=== PATIENT | male | born 1945 | race Caucasian/White ===

== ENCOUNTER 2017-05-04 10:21 | Day surgery (SDC) | payer MEDICARE ==
[~2017-05-04 10:21] MED LIST: LACTATED RINGERS 1,000 ML IV SCH; LIDOCAINE 1% 20 ML VIAL (10MG/ML) FOR IV START INTRADERMA PRN
[2017-05-04 11:14] VITALS: RESP 16; TEMP 98
[2017-05-04] MEDS ORDERED: LIDOCAINE 1% INJ 10MG/ML (20 ML MDV) ONE (11:51)
[2017-05-04] MEDS ORDERED: PROPOFOL 10 MG/ML 20 ML VIAL IV ONE (11:51)
[2017-05-04] MEDS ORDERED: MIDAZOLAM 2 MG/2 ML VIAL ONE (11:51)
--- NOTE | 2017-05-04 12:17 | P.PCN ---
Date of Procedure: 05/04/17 Procedure(s) Performed: BRIEF HISTORY: Patient is a 71-year-old pleasant white male scheduled for an elective colonoscopy as a part of screening for colorectal neoplasia. PROCEDURE PERFORMED: Colonoscopy with biopsy. PREOPERATIVE DIAGNOSIS: Screening for colon cancer IV sedation per Anesthesia. PROCEDURE: After informed consent was obtained, the patient, was brought into the endoscopy unit. IV sedation was administered by Anesthesia under continuous monitoring. Digital rectal examination was normal. Initially the Olympus CF- 160 flexible video colonoscope was then inserted in the rectum, gradually advanced into the cecum without any difficulty. Careful examination was performed as the scope was gradually being withdrawn. Ileocecal valve and the appendiceal orifice were visualized and appeared normal. Prep was excellent. Mucosa of the cecum, ascending colon, appeared normal. In the transverse colon there was a 5 mm polyp that was removed by biopsy. The rest of the transverse colon, descending colon, sigmoid colon, and rectum appeared normal. Moderate left sided diverticulosis seen. Retroflexion was performed in the rectum and grade 2 internal hemorrhoids were seen. The patient tolerated the procedure well. IMPRESSION: 5 mm transverse colon polyp status post removal by biopsy. Left sided diverticulosis Small internal hemorrhoids RECOMMENDATIONS: Findings of this examination were discussed with the patient as well as his family. He was advised to follow with the biopsy results. If the biopsy shows a tubular adenoma he can have a repeat colonoscopy in 5 years.
[2017-05-04 12:50] VITALS: BP 132/69
[2017-05-04 12:52] VITALS: PULSE 61
== END 2017-05-04 13:34 | disposition home or self-care (01) ==
LOC: ORWHC2ENDO 10:21
PROVIDERS: ATTEND Internal Medicine Gastroenterology
DX: D12.3 Benign neoplasm of transverse colon (principal); K57.30 Diverticulosis of large intestine without perforation or abscess without bleeding; K64.1 Second degree hemorrhoids; E78.5 Hyperlipidemia, unspecified; K21.9 Gastro-esophageal reflux disease without esophagitis; Z79.82 Long term (current) use of aspirin; Z79.899 Other long term (current) drug therapy; Z86.010 Personal history of colon polyps
CPT/HCPCS: 45380; 88305; J2250; J2001; J2704

== ENCOUNTER → 2019-02-05 | Outpatient (CLI) | payer MEDICARE ==
--- NOTE | 2019-02-05 16:34 | XR ---
Cervical spine HISTORY: Neck pain 5 views of the cervical spine Cervical vertebral bodies show decreased mineralization. There is a minimal retrolisthesis grade 1 C5 -6, C6-7. Suspect segmentation anomaly at C2-3. Spondylosis is present with loss of disc height at C5 -6 and C6-7, there is associated vacuum phenomenon at intervertebral levels with loss of disc height. Minimal anterolisthesis grade 1 C3-4, C7-T1. Facet arthropathy changes are present. Prevertebral sof t tissues are normal. Multilevel foraminal encroachment present C5-6 and C6-7 bilaterally, foramina n ot as well visualized on the left due to technique. 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 Cervical MRI may be of benefit. Foraminal encroachment.
== END | disposition home or self-care (01) ==
LOC: RADXRMAIN 12:26
PROVIDERS: ATTEND Family Medicine
DX: M50.30 Other cervical disc degeneration, unspecified cervical region (principal); M46.92 Unspecified inflammatory spondylopathy, cervical region; Q89.9 Congenital malformation, unspecified
CPT/HCPCS: 72050

== ENCOUNTER → 2019-11-25 | Outpatient (CLI) | payer MEDICARE ==
--- NOTE | 2019-11-25 14:50 | XR ---
EXAMINATION TYPE: XR chest 2V DATE OF EXAM: 11/25/2019 COMPARISON: NONE TECHNIQUE: PA and lateral views submitted. HISTORY: Cough FINDINGS: The lungs are clear and there is no pneumothorax, pleural effusion, or focal pneumonia. Heart size normal. No overt failure. Biapical pleural thickening. IMPRESSION: 1. No acute process.
== END | disposition home or self-care (01) ==
LOC: RADXRMAIN 14:34
PROVIDERS: ATTEND Family Medicine
DX: R05 Cough (principal)
CPT/HCPCS: 71046

== ENCOUNTER → 2020-03-15 | Outpatient (CLI) | payer MEDICARE ==
--- NOTE | 2020-03-16 09:52 | MR ---
EXAMINATION TYPE: MR Prostate wo/w con DATE OF EXAM: 03/15/2020 COMPARISON: None. IMAGE QUALITY: . INDICATION: PSA: 12.5 ng/ml on February 13, 2020 Recent Biopsy and Date: November 04, 2014. Pathology Report (If Applicable): All sites benign. TECHNIQUE: Examination was performed using a 3T MRI without an endorectal coil. Multiparametric imaging was perf ormed with T2 mutliplanar sequences, axial diffusion weighted imaging and dynamic contrast enhanced i maging, utilizing 10 mL intravenous Gadavist gadolinium contrast. FINDINGS: There is no clinically significant cancer identified. PROSTATE VOLUME: 5.6 cm SI x 4.5 cm AP x 5.1 cm LR Vol= 67.3 cc PSA DENSITY: 8.076 ng/ml/cc Prostate gland overall enlarged in size. Capsule is maintained. No adjacent adenopathy seen. Peripheral zone is thinned and unremarkable on the DWI/ADC imaging. Transitional zone shows heterogeneity and enlargement. There is circumscribed hypointense 1.6 x 0.9 c m nodule in the right mid zone with superior basilar extension. In the left base anteriorly there is heterogeneous low T2 signal with obscured margins that does not show restricted diffusion on diffusio n-weighted imaging. Finding best appreciated on coronal image 8. Seminal vesicles symmetric in size. Urinary bladder shows no suspicious wall thickening or trabeculation. Visualized osseous structures are intact. No concerning pelvic fluid collection. No suspicious bowel dilatation. IMPRESSION: Findings consistent with BPH. A focus of clinically significant cancer not identified. Highest Assessment Category: 3 MRI Stage: T0 N0 M0 based on review of pelvic images. False negative rates for MRI range from 5-20% depending on risk profile. Assessment Categories: 1 ? Very low (clinically significant cancer is highly unlikely to be present) 2 ? Low (clinically significant cancer is unlikely to be present) 3 ? Intermediate (the presence of clinically significant cancer is equivocal) 4 ? High (clinically significant cancer is likely to be present) 5 ? Very high (clinically significant cancer is highly likely to be present)
== END | disposition home or self-care (01) ==
LOC: RADMRIMAIN 18:33
PROVIDERS: ATTEND Urology
DX: R97.20 Elevated prostate specific antigen [PSA] (principal)
CPT/HCPCS: 72197; A9585

== ENCOUNTER → 2021-01-20 | Outpatient (CLI) | payer MEDICARE ==
--- NOTE | 2021-01-20 18:01 | ECHOF ---
Referral Reason: MEASUREMENTS -------- HEIGHT: 177.8 cm WEIGHT: 99.8 kg BP: IVSd: 1.3 cm (0.6 - 1.1) LVIDd: 4.1 cm (3.9 - 5.3) LVPWd: 1.4 cm (0.6 - 1.1) EDV(Teich): 73 ml IVSs: 1.7 cm LVIDs: 2.7 cm LVPWs: 1.5 cm %IVS Thck: 23 % ESV(Teich): 26 ml EF(Teich): 65 % %FS: 35 % SV(Teich): 47 ml RVIDd: 4.4 cm (< 3.3) LALs A4C: 5.3 cm LAAs A4C: 18.9 cm LAESV A-L A4C: 57 ml LAESV MOD A4C: 54 ml LALs A2C: 5.2 cm LAAs A2C: 17.5 cm LAESV A-L A2C: 50 ml LAESV MOD A2C: 48 ml LAESV(A-L): 54 ml LAESV Index (A-L): 24.76 ml/m Ao Diam: 3.6 cm (2.0 - 3.7) LA Diam: 3.8 cm (2.7 - 3.8) AV Cusp: 2.0 cm (1.5 - 2.6) EPSS: 0.3 cm MV E Richard: 0.59 m/s MV DecT: 275 ms MV Dec Grady: 2.1 m/s MV A Richard: 0.92 m/s MV E/A Ratio: 0.64 MV PHT: 80 ms LVOT Vmax: 1.15 m/s LVOT maxP.31 mmHg AV Vmax: 1.46 m/s AV maxP.53 mmHg TR Vmax: 2.92 m/s TR maxP.09 mmHg RAP: 5.00 mmHg RVSP: 39.09 mmHg MV EF SLOPE: 67.77 mm/s (70 - 150) MV EXCURSION: 20.76 mm (> 18.000) FINDINGS -------- Sinus rhythm. This was a technically adequate study. The left ventricular size is normal. There is mild concentric left ventricular hypertrophy. Overa ll left ventricular systolic function is normal with, an EF between 55 - 60 %. The diastolic fillin g pattern is normal for the age of the patient 11.05. The right ventricle is moderately enlarged. Normal LA size by volume 22+/-6 ml/m2. The right atrial size is normal. Interatrial and interventricular septum intact. There is no evidence of aortic regurgitation. There is no evidence of aortic stenosis. There is trace mitral regurgitation. Mild tricuspid regurgitation present. There is mild pulmonary hypertension. The right ventricular systolic pressure, as measured by Doppler, is 39.09mmHg. There is no pulmonic regurgitation present. The aortic root size is normal. Normal inferior vena cava with normal inspiratory collapse consistent with estimated right atrial pre ssure of 5 mmHg. There is no pericardial effusion. CONCLUSIONS -------- 1. The left ventricular size is normal. 2. There is mild concentric left ventricular hypertrophy. 3. Overall left ventricular systolic function is normal with, an EF between 55 - 60 %. 4. The diastolic filling pattern is normal for the age of the patient 11.05 5. The right ventricle is moderately enlarged. 6. There is trace mitral regurgitation. 7. Mild tricuspid regurgitation present. 8. There is mild pulmonary hypertension. 9. The right ventricular systolic pressure, as measured by Doppler, is 39.09mmHg. DONOR SERVICES SPECIALIST: Liz Holland RDCS
== END | disposition home or self-care (01) ==
LOC: RADECHMAIN 12:49
PROVIDERS: ATTEND Family Medicine
DX: I08.1 Rheumatic disorders of both mitral and tricuspid valves (principal); I27.20 Pulmonary hypertension, unspecified
CPT/HCPCS: 93306

== ENCOUNTER → 2021-01-21 | Outpatient (CLI) | payer MEDICARE ==
[2021-01-21 07:54] LABS: Basophils # (A) 0.1 k/uL (0-0.2); Basophils % (A) 1 %; Eosinophils # (A) 0.2 k/uL (0-0.7); Eosinophils % (A) 3 %; HCT 43.1 % (39.0-53.0); HGB 14.5 gm/dL (13.0-17.5); Lymphocytes # (A) 2.3 k/uL (1.0-4.8); Lymphocytes % (A) 34 %; MCH 30.9 pg (25.0-35.0); MCHC 33.6 g/dL (31.0-37.0); MCV 92.1 fL (80.0-100.0); Mean Platelet Volume 7.7; Monocytes # (A) 0.3 k/uL (0-1.0); Monocytes % (A) 5 %; Neutrophils # (A) 3.8 k/uL (1.3-7.7); Neutrophils % (A) 56 %; Platelet Count 210 k/uL (150-450); RBC 4.68 m/uL (4.30-5.90); RDW 13.5 % (11.5-15.5); WBC 6.8 k/uL (3.8-10.6)
[2021-01-21 08:23] LABS: Calcium 9.7 mg/dL (8.4-10.2)
== END | disposition home or self-care (01) ==
LOC: LABPAT 07:02
PROVIDERS: ATTEND Urology
DX: Z01.812 Encounter for preprocedural laboratory examination (principal); R97.20 Elevated prostate specific antigen [PSA]
CPT/HCPCS: 36415; 80048; 85025

== ENCOUNTER 2021-01-27 08:39 | Day surgery (SDC) | payer MEDICARE ==
[2021-01-20 09:55] VITALS: BMI 31.5
--- NOTE | 2021-01-25 21:51 | P.GSHP ---
History of Present Illness H&P Date: 01/25/21 Chief Complaint: Elevated PSA The patient is a 75-year-old white male with a persistently elevated PSA level. He underwent a prostate ultrasound with biopsies in 2012 in 2014, showing no evidence of malignancy. An MRI of the prostate showed the prostate volume be 67 mL, and no areas of suspicion were identified. However, the PSA level has risen to 13.60. SALMA reveals the prostate to be enlarged but smooth. - Constitutional Constitutional: Denies weight gain, Denies weight loss - Genitourinary (Male) Genitourinary: Reports nocturia, Reports urinary hesitancy, Denies dysuria, Denies hematuria Past Medical History Past Medical History: GERD/Reflux, Hyperlipidemia, Hypertension, Prostate Disorder Additional Past Medical History / Comment(s): PSA ELEVATED History of Any Multi-Drug Resistant Organisms: None Reported Past Surgical History: Tonsillectomy Additional Past Surgical History / Comment(s): ULNAR NERVE LEFT ARM. COLONOSCOPY Past Anesthesia/Blood Transfusion Reactions: No Reported Reaction Smoking Status: Former smoker - Past Family History Mother Family Medical History: No Reported History Daughter(s) Family Medical History: Cancer Additional Family Medical History / Comment(s): BREAST Medications and Allergies Home Medications Medication Instructions Recorded Confirmed Type Pravastatin Sodium [Pravachol] 40 mg PO HS 05/03/17 01/20/21 History amLODIPine [Norvasc] 5 mg PO HS 01/20/21 01/20/21 History Allergies Allergy/AdvReac Type Severity Reaction Status Date / Time No Known Allergies Allergy Verified 01/20/21 09:45 Surgical - Exam - General well developed, well nourished, no distress - Respiratory normal respiratory effort - Abdomen Abdomen: soft, non tender, no guarding, no rigid, no rebound - Genitourinary normal penis with no external lesions, testicles non-tender - Rectum Rectum: normal sphincter tone, no masses, other (Prostate enlarged and smooth) - Psychiatric oriented to time, oriented to person, oriented to place, speech is normal, memory intact Assessment and Plan (1) Elevated PSA Status: Acute Code(s): R97.20 - ELEVATED PROSTATE SPECIFIC ANTIGEN [PSA] SNOMED Code(s): 748448150 Plan: Prostate ultrasound with transperineal saturation biopsies. The rationale for the procedure has been reviewed in detail with the patient. He is aware of potential risks, which include anesthesia, bleeding, infection, and postoperative voiding difficulty.
[~2021-01-27 08:39] MED LIST changes: +DEXAMETHASONE SOD PHOSPHATE 4 MG/ML 1 ML VIAL IV ONE; +HYDROmorphone 0.5 MG/0.5 ML SYRINGE IVP PRN; -LACTATED RINGERS 1,000 ML IV SCH; -LIDOCAINE 1% 20 ML VIAL (10MG/ML) FOR IV START INTRADERMA PRN; +ONDANSETRON 4 MG/2 ML VIAL IVP ONE
[2021-01-27] MEDS ORDERED: LIDOCAINE 1% (10MG/ML) FOR IV START INTRADERMA ONE (09:16)
[2021-01-27] MEDS: LACTATED RINGERS 1,000 ML IV SCH ×2 (09:17→13:36)
[2021-01-27] MEDS ORDERED: PROPOFOL 10 MG/ML 20 ML VIAL IV ONE (10:53)
[2021-01-27] MEDS ORDERED: SUCCINYLCHOLINE CHLORIDE 100 MG/5 ML SYR IV ONE (10:53)
[2021-01-27] MEDS ORDERED: fentaNYL (PF) 50 MCG/ML 2 ML AMP ONE (10:53)
[2021-01-27] MEDS ORDERED: MIDAZOLAM 2 MG/2 ML VIAL ONE (10:53)
[2021-01-27] MEDS ORDERED: LIDOCAINE 1% INJ 10MG/ML (20 ML MDV) ONE (10:53)
--- NOTE | 2021-01-27 12:33 | P.OP ---
Date of Procedure: 01/27/21 Preoperative Diagnosis: Elevated PSA Postoperative Diagnosis: Same Procedure(s) Performed: Transrectal ultrasound of prostate with transperineal saturation prostate biopsies. Anesthesia: GETA Surgeon: Sascha Loving Estimated Blood Loss (ml): 30 IV fluids (ml): 350 Pathology: other (Prostate biopsies) Condition: stable Disposition: PACU Indications for Procedure: The patient is a 75-year-old white male with a persistently elevated PSA level. He underwent a prostate ultrasound with biopsies in 2012 in 2014, showing no evidence of malignancy. An MRI of the prostate showed the prostate volume be 67 mL, and no areas of suspicion were identified. However, the PSA level has risen to 13.60. SALMA reveals the prostate to be enlarged but smooth. Operative Findings: Enlarged prostate consistent with BPH. No suspicious hypoechoic lesions are seen. Description of Procedure: The patient was taken to the operating room and placed in the dorsolithotomy position, with his legs supported in Adriel stirrups. The external genitalia was prepped and draped sterilely. The B & K transrectal ultrasound probe was placed intrarectally, and the probe was then secured to the stabilizing brackets. The prostate was imaged on both the axial and sagittal planes. The prostate was noted to be enlarged. Transitional zone enlargement was consistent with BPH. No hypoechoic lesions were seen throughout the prostate. The Biopty gun was used to obtain multiple prostate biopsies, over 50 in total. Needle placement was imaged axially and sagittally. The specimens were divided and sent as follows : Right transitional zone, right peripheral zone base, right peripheral zone mid, right peripheral zone apex, left transitional zone, left peripheral zone base, left peripheral zone mid, left peripheral zone apex. Once this was completed, the prostate was imaged. There was no evidence of a hematoma surrounding the prostate. The ultrasound probe was removed. The patient tolerated the procedure well was taken to the recovery room in stable condition.
[2021-01-27 12:37] VITALS: TEMP 97.5
[2021-01-27 12:49] VITALS: RESP 16
[2021-01-27 14:08] VITALS: BP 140/79; PULSE 56
== END 2021-01-27 14:49 | disposition home or self-care (01) ==
LOC: OR 08:39
PROVIDERS: ATTEND Urology
DX: R97.20 Elevated prostate specific antigen [PSA] (principal); K21.9 Gastro-esophageal reflux disease without esophagitis; E78.5 Hyperlipidemia, unspecified; I10 Essential (primary) hypertension; Z87.891 Personal history of nicotine dependence; Z79.899 Other long term (current) drug therapy
CPT/HCPCS: 55700; J2250; J1100; J0690; J2405; J2001; J3010; J0330; J2704; J1170; 88305; 88344

== ENCOUNTER → 2021-06-21 | Outpatient (CLI) | payer MEDICARE | END | disposition home or self-care (01) | LOC: LABWHC1 07:13 | PROVIDERS: ATTEND Urology | DX: C61 Malignant neoplasm of prostate (principal) | CPT/HCPCS: 36415; 84153 ==

== ENCOUNTER → 2021-10-12 | Outpatient (CLI) | payer MEDICARE ==
[2021-10-12 18:33] LABS: Basophils # (A) 0.04 X 10*3/uL (0.00-0.10); Basophils % (A) 0.6 %; Eosinophils # (A) 0.11 X 10*3/uL (0.04-0.35); Eosinophils % (A) 1.7 %; HCT 43.7 % (39.6-50.0); HGB 13.6 g/dL (13.0-17.0); Immature Grans, Automated 0.2 %; Lymphocytes # (A) 1.59 X 10*3/uL (0.90-5.00); Lymphocytes % (A) 24.5 %; MCH 28.5 pg (27.0-32.0); MCHC 31.1 g/dL (32.0-37.0); MCV 91.6 fL (80.0-97.0); Mean Platelet Volume 10.7 fL (9.5-12.2); Monocytes % (A) 6.2 %; NRBC Per 100 WBC 0 /100 WBCS (0.0-0.0); Neutrophils # (A) 4.33 X 10*3/uL (1.80-7.70); Neutrophils % (A) 66.8 %; Platelet Count 231 X 10*3/uL (140-440); RBC 4.77 X 10*6/uL (4.40-5.60); RDW 12.8 % (11.5-14.5); WBC 6.48 X 10*3/uL (4.50-10.00)
[2021-10-12 18:37] LABS: Anion Gap 7.4 mmol/L (10.00-18.00); BUN/Creat Ratio 15.56 Ratio (12.00-20.00); Blood Urea Nitrogen 19.3 mg/dL (9.0-27.0); Calcium 9.5 mg/dL (8.7-10.3); Carbon Dioxide 28.5 mmol/L (20.0-27.5); Non-African American GFR(CKD) 56.1 (60.0-200.0); Potassium 4.7 mmol/L (3.5-5.5)
== END | disposition home or self-care (01) ==
LOC: LABWHC1 10:48
PROVIDERS: ATTEND Urology
DX: Z01.812 Encounter for preprocedural laboratory examination (principal); C61 Malignant neoplasm of prostate
CPT/HCPCS: 36415; 80048; 85025

== ENCOUNTER → 2021-10-19 | Outpatient (CLI) | payer MEDICARE | END | disposition home or self-care (01) | LOC: LABPAT 09:10 | PROVIDERS: ATTEND Urology | DX: Z53.9 Procedure and treatment not carried out, unspecified reason (principal) ==

== ENCOUNTER 2021-10-20 05:46 | Day surgery (SDC) | payer MEDICARE ==
[2021-10-19 08:17] VITALS: BMI 31.2
--- NOTE | 2021-10-19 22:46 | P.GSHP ---
History of Present Illness H&P Date: 10/19/21 Chief Complaint: Prostate cancer The patient is a 75-year-old white male with a persistently elevated PSA level. He underwent a prostate ultrasound with biopsies in 2012 in 2014, showing no evidence of malignancy. An MRI of the prostate showed the prostate volume be 67 mL, and no areas of suspicion were identified. However, the PSA level federico to 13.60. SALMA reveals the prostate to be enlarged but smooth. He underwent prostate ultrasound with saturation biopsies in January 2021 revealing a small focus of [place] 6 adenocarcinoma. He initially chose to proceed with active surveillance. However, the PSA level has continued to rise and was most recently 17.20, and he has experienced increased voiding symptoms. He has thus elected to undergo a robotic-assisted laparoscopic prostatectomy (RALP). - Constitutional Constitutional: Denies chills, Denies fever - Genitourinary (Male) Genitourinary: Reports urinary hesitancy Past Medical History Past Medical History: Cancer, GERD/Reflux, Hyperlipidemia, Hypertension, Osteoarthritis (OA) Additional Past Medical History / Comment(s): hx hiatal hernia, prostate cancer History of Any Multi-Drug Resistant Organisms: None Reported Past Surgical History: Orthopedic Surgery, Tonsillectomy Additional Past Surgical History / Comment(s): ULNAR NERVE LEFT ARM. COLONOSCOPY, arthroscopy left knee surgery Past Anesthesia/Blood Transfusion Reactions: No Reported Reaction Smoking Status: Former smoker - Past Family History Mother Family Medical History: No Reported History Daughter(s) Family Medical History: Cancer, Pulmonary Embolus Additional Family Medical History / Comment(s): BREAST Medications and Allergies Home Medications Medication Instructions Recorded Confirmed Type Pravastatin Sodium [Pravachol] 40 mg PO HS 05/03/17 10/19/21 History amLODIPine [Norvasc] 5 mg PO HS 01/20/21 10/19/21 History Allergies Allergy/AdvReac Type Severity Reaction Status Date / Time No Known Allergies Allergy Verified 10/19/21 08:07 Surgical - Exam - General well developed, well nourished, no distress - Neck no masses, trachea midline - Abdomen Abdomen: soft, non tender, no guarding, no rigid, no rebound Hernia: none - Genitourinary normal penis with no external lesions, testicles non-tender - Rectum Rectum: normal sphincter tone, no masses, other (Prostate moderately enlarged but smooth) - Psychiatric oriented to time, oriented to person, oriented to place, speech is normal, memory intact Assessment and Plan (1) Malignant neoplasm of prostate Status: Acute Code(s): C61 - MALIGNANT NEOPLASM OF PROSTATE SNOMED Code(s): 829248115 Plan: Robotic-assisted laparoscopic prostatectomy (RALP) with bilateral pelvic lymphadenectomy. The procedure has been reviewed in detail with the patient. He understands risks to include anesthesia, bleeding, infection, neurovascular injury, bowel injury, lymphocele, urinary leak, and vesical neck contracture. The potential long-term complications of urinary incontinence and erectile dysfunction have been discussed. He is aware of the possible need for adjuvant therapy.
[~2021-10-20 05:46] MED LIST changes: -DEXAMETHASONE SOD PHOSPHATE 4 MG/ML 1 ML VIAL IV ONE; +HEPARIN SODIUM,PORCINE/PF 5,000 UNIT/0.5 ML SYRINGE SQ PRN; -HYDROmorphone 0.5 MG/0.5 ML SYRINGE IVP PRN; -ONDANSETRON 4 MG/2 ML VIAL IVP ONE
[2021-10-20] MEDS ORDERED: HYDROmorphone 0.5 MG/0.5 ML SYRINGE IVP PRN (06:09)
[2021-10-20] MEDS ORDERED: ONDANSETRON 4 MG/2 ML VIAL IVP ONE (06:09)
[2021-10-20] MEDS ORDERED: DEXAMETHASONE SOD PHOSPHATE 4 MG/ML 1 ML VIAL IV ONE (06:09)
[2021-10-20] MEDS: LACTATED RINGERS 1,000 ML IV SCH (06:40)
[2021-10-20] MEDS ORDERED: LACTATED RINGERS 1,000 ML IV ONE ×2 (06:45→10:32)
[2021-10-20] MEDS ORDERED: fentaNYL (PF) 50 MCG/ML 2 ML AMP IV ONE (06:58)
[2021-10-20] MEDS ORDERED: MIDAZOLAM 2 MG/2 ML VIAL IV ONE (06:58)
[2021-10-20] MEDS ORDERED: SODIUM CHLORIDE 0.9% (PF) 10 ML VIAL ONE (07:32)
[2021-10-20] MEDS ORDERED: fentaNYL (PF) 50 MCG/ML 2 ML AMP ONE (07:32)
[2021-10-20] MEDS ORDERED: MIDAZOLAM 2 MG/2 ML VIAL ONE (07:32)
[2021-10-20] MEDS ORDERED: NEOSTIGMINE 1 MG/ML 10 ML VIAL ONE (07:32)
[2021-10-20] MEDS ORDERED: ROPIVACAINE 5 MG/ML 30 ML VIAL ONE (07:32)
[2021-10-20] MEDS ORDERED: ROCURONIUM 10 MG/ML (5 ML VIAL) IV ONE (07:32)
[2021-10-20] MEDS ORDERED: GLYCOPYRROLATE 0.2 MG/ML 2 ML VIAL ONE (07:32)
[2021-10-20] MEDS ORDERED: HYDROmorphone (PF) 1 MG/ML ONE (07:32)
[2021-10-20] MEDS ORDERED: SUCCINYLCHOLINE CHLORIDE 100 MG/5 ML SYR IV ONE (07:32)
[2021-10-20] MEDS ORDERED: PROPOFOL 10 MG/ML 20 ML VIAL IV ONE (07:32)
[2021-10-20] MEDS ORDERED: ePHEDrine 50 MG/ML 1 ML VIAL ONE (07:32)
[2021-10-20] MEDS ORDERED: LIDOCAINE 2% INJ 20 MG/ML (2 ML VIAL) ONE (07:32)
[2021-10-20] MEDS ORDERED: BUPIVACAINE (PF) 0.25% 30 ML VIAL SQ ONE ×2 (08:12→13:15)
[2021-10-20] MEDS ORDERED: SODIUM CHLORIDE 0.9% 100 ML with ceFAZolin 2,000 MG IV ONE ×2 (11:30)
--- NOTE | 2021-10-20 12:11 | P.ANPRN ---
Procedure Note - Anesthesia - Nerve Block Performed Bilateral Erector Spinae Single Time Out Performed: Yes ([id number]) Date of Procedure: 10/20/21 Procedure Start Time: 06:58 Procedure Stop Time: 07:05 Location of Patient: PreOp Indication: Acute Post-Operative Pain, Requested by Surgeon Specifically requested for management of pain by DrAgustina: Sashca Loving Sedation Type: Sedate with meaningful contact maintained Preparation: Sterile Prep Position: Prone Catheter: None Needle Types: Pajunk Needle Gauge: 21 Ultrasound used to visualize needle placement: Yes Ultrasound used to observe medication spread: Yes Injectate: 0.5% Ropivacaine (see comment for volume) (15cc + 15cc nacl pf) Blood Aspirated: No Pain Paresthesia on Injection Noted: No Resistance on Injection: Normal Image Stored and Saved: Yes Events: Uneventful and Well Tolerated
--- NOTE | 2021-10-20 13:29 | P.OP ---
Date of Procedure: 10/20/21 Preoperative Diagnosis: Adenocarcinoma of the prostate, clinical stage TIc NX M0 Postoperative Diagnosis: Same Procedure(s) Performed: Robotic-assisted laparoscopic prostatectomy (RALP) with bilateral pelvic lymphadenectomy Anesthesia: SHREYA Surgeon: Sascha Loving Estimated Blood Loss (ml): 200 IV fluids (ml): 1,800 Pathology: other (Prostate and seminal vesicles, pelvic lymph nodes) Condition: stable Disposition: PACU Indications for Procedure: The patient is a 75-year-old white male with a persistently elevated PSA level. He underwent a prostate ultrasound with biopsies in 2012 in 2014, showing no evidence of malignancy. An MRI of the prostate showed the prostate volume be 67 mL, and no areas of suspicion were identified. However, the PSA level federico to 13.60. SALMA reveals the prostate to be enlarged but smooth. He underwent prostate ultrasound with saturation biopsies in January 2021 revealing a small focus of [place] 6 adenocarcinoma. He initially chose to proceed with active surveillance. However, the PSA level has continued to rise and was most recently 17.20, and he has experienced increased voiding symptoms. He has thus elected to undergo a robotic-assisted laparoscopic prostatectomy (RALP). Operative Findings: Enlarged prostate. No evidence of extraprostatic disease. Description of Procedure: The patient was taken in the operating room and placed in the supine position. He was carefully positioned on a beanbag for stability. The abdomen and external genitalia were prepped and draped sterilely. A Noguera catheter was inserted. The Veress needle was passed through the anterior abdominal wall immediately cephalad to the umbilicus, and insufflation was performed to a pressure of 20 mm Hg. Once insufflation was performed, the Veress needle was removed and a supraumbilical incision was made, through which an 8 mm camera port was placed. The patient was placed in Trendelenburg position, and anesthesia reported that his tidal volumes were lower than desired. Therefore, the insufflation pressure was reduced to 15 mmHg. Under camera guidance, 3 8 mm robotic ports were placed, 2 on the left and one on the right. A 12 mm port was placed on the right lateral side for use as an sales support assistant port. A 5 mm port was placed to the right of the camera port for suction. Docking was then performed to the [employer] system utilizing a 4-arm approach. The abdomen was examined. The sigmoid colon was mobilized out of the pelvis. The peritoneum was incised lateral to the medial umbilical ligaments bilaterally, exposing the pubis. The peritoneum was then incised across the midline, allowing the bladder flap to be taken down. The endopelvic fascia was opened bilaterally, and muscular attachments from the urogenital diaphragm were swept away from the prostate. Bilateral pelvic lymphadenectomies were performed in the standard fashion. The peritoneal incisions were extended in a cephalad direction, and the vas deferens were divided bilaterally. Margins of dissection were the bifurcation of the iliac vessels proximally, the circumflex iliac vein distally, the external iliac artery laterally, and the obturator nerve medially. A combination of sharp and blunt dissection was used. Care was taken to avoid any neurovascular injury, and the use of monopolar electrocautery was avoided immediately adjacent to neurovascular structures. The lymphatic package was clipped distally. No enlarged lymph nodes were encountered. There were no complications. The vesical neck was incised transversely, down to the lumen. The Noguera catheter was brought out through the anterior vesical neck incision and was used for traction. The posterior aspect of the vesical neck was incised, such that the full-thickness of the vesical neck was divided. The anterior layer of the Denonvilliers fascia was incised, exposing the vas deferens. Each were isolated and divided. Next, each of the seminal vesicles were dissected away from adjacent tissues, and vascular attachments were cauterized and divided. The posterior leaf of Denonvilliers fascia was incised transversely, allowing entry into the plane between the prostate and rectum. With lateral spreading, this plane was developed down to the apex. This exposed the lateral vascular pedicles bilaterally. The da Claribel vessel sealer was used to ligate and divide the vascular pedicles in an antegrade fashion, down to the apex. Wide excision of the neurovascular bundles was not performed. The remaining apical attachments were swept away from the prostate. The dorsal venous complex was incised, as well as periurethral tissue. At this point, only the urethra remained intact. This was transected immediately distal to the prostatic apex using cold scissors. The specimen was placed within a specimen bag. The dorsal venous complex was sutured using a V-Loc suture in a running fashion. A second V-Loc suture was then used to place the Ney stitch, incorporating the rhabdosphincter and the edge of Denonvilliers fascia. This allowed the bladder to be taken down to the urethra, leaving the vesical neck immediately adjacent to the urethra. The vesicourethral anastomosis was then performed using a V-Loc suture in a running fashion. The bladder neck was larger than desired, and the redundant bladder neck opening was closed in a tennis racquet fashion. After completing the anastomosis, an 18-Peruvian Noguera catheter was placed and approximately 150 mL of 0.9 normal saline were instilled into the bladder. No extravasation of irrigant from the vesicourethral anastomosis was noted. A small amount of oozing was noted from the vascular pedicles, so Surgicel was placed bilaterally. Tisseel was sprayed into the pelvis over the vascular pedicles, dorsal vein, and vesicourethral anastomosis. The patient was returned to the supine position. Undocking was performed, and the specimen bag sutures were passed through the camera port. After removing all the ports and allowing all of the CO2 to be released from the peritoneal cavity, the camera port incision was enlarged to allow removal of the surgical specimen. The fascia of this incision was then closed using 0 PDS suture in a running fashion. Each of the skin incisions were then closed using 4-0 Monocryl suture in a subcuticular fashion. Marcaine was injected at each of the incision sites. Dermabond was applied to each incision. The Noguera catheter was connected to gravity drainage. All sponge and needle counts were correct. The patient tolerated the procedure well was taken to the recovery room in stable condition.
[2021-10-20] MEDS ORDERED: KETOROLAC 15 MG/ML 1 ML VIAL IVP PRN (13:30)
[2021-10-20] MEDS ORDERED: ONDANSETRON 4 MG/2 ML VIAL IVP PRN (13:30)
[2021-10-20] MEDS: DEXTROSE 5%-0.45% NACL 1,000 ML IV SCH ×2 (15:59→20:59)
[2021-10-20] MEDS: amLODIPine 5 MG TAB PO SCH (20:52)
[2021-10-20] MEDS: HEPARIN SODIUM,PORCINE/PF 5,000 UNIT/0.5 ML SYRINGE SQ SCH (20:52)
[2021-10-20] MEDS: PRAVASTATIN SODIUM 40 MG TAB PO SCH (20:52)
[2021-10-21] MEDS: DEXTROSE 5%-0.45% NACL 1,000 ML IV SCH ×3 (05:08→18:01)
[2021-10-21] MEDS: LACTATED RINGERS 1,000 ML IV SCH (05:09)
[2021-10-21] MEDS: HYDROmorphone 1 MG/ML 1 ML SYRINGE IVP PRN ×2 (07:06→20:45)
[2021-10-21] MEDS: HEPARIN SODIUM,PORCINE/PF 5,000 UNIT/0.5 ML SYRINGE SQ SCH ×2 (07:08→20:45)
--- NOTE | 2021-10-21 18:18 | P.PN ---
Subjective Progress Note Date: 10/21/21 Principal diagnosis: POD #1, s/p RALP The patient underwent an RALP yesterday. He denies nausea but reports incisional pain. He also experienced some dizziness earlier today. Objective - Vital Signs Vital signs: Vital Signs Temp 99.4 F 10/21/21 14:01 Pulse 68 10/21/21 14:01 Resp 20 10/21/21 14:01 BP 143/75 10/21/21 14:01 Pulse Ox 94 L 10/21/21 14:01 FiO2 Intake & Output 10/20/21 10/21/21 10/21/21 18:59 06:59 18:59 Intake Total 2690 180 Output Total 1550 1700 590 Balance 1140 -1700 -410 Weight 100.9 kg Intake: IV 2150 Oral 540 180 Output: Urine 1350 1700 590 Estimated Blood Loss 200 Other: Voiding Method Indwelling Catheter Indwelling Catheter Indwelling Catheter - Constitutional General appearance: Present: average body habitus, cooperative, no acute distress - Gastrointestinal Gastrointestinal Comment(s): Soft, non-distended. Incisions C/D/I. Noguera draining clear urine. - Psychiatric Psychiatric: Present: A&O x's 3 Assessment and Plan (1) Malignant neoplasm of prostate Current Visit: No Status: Acute Code(s): C61 - MALIGNANT NEOPLASM OF PROSTATE SNOMED Code(s): 754553369 Plan: Patient will remain hospitalized for pain control, ambulation. Discharge home tomorrow is anticipated.
[2021-10-21] MEDS ORDERED: ACETAMINOPHEN TAB 325 MG TAB PO PRN (20:23)
[2021-10-21] MEDS: PRAVASTATIN SODIUM 40 MG TAB PO SCH (20:45)
[2021-10-21] MEDS: amLODIPine 5 MG TAB PO SCH (20:45)
[2021-10-22] MEDS: DEXTROSE 5%-0.45% NACL 1,000 ML IV SCH (05:13)
[2021-10-22] MEDS: HYDROmorphone 1 MG/ML 1 ML SYRINGE IVP PRN (07:42)
[2021-10-22] MEDS: HEPARIN SODIUM,PORCINE/PF 5,000 UNIT/0.5 ML SYRINGE SQ SCH (07:43)
[2021-10-22] MEDS: LACTATED RINGERS 1,000 ML IV SCH (07:45)
[2021-10-22 07:58] VITALS: BP 134/79; PULSE 78; RESP 18; TEMP 99.3
--- NOTE | 2021-10-22 20:52 | P.DS ---
Providers Attending physician: Sascha Loving Primary care physician: [facility] Course: This is a 75 yo with hx of prostate cancer he underwent robotic assisted prostatectomy on 10/[address] Loving please see op note dated 10/20 for surgery details He did well in the postoperative period. He was discharged home on postoperative day #2. At time of discharge he was tolerating a diet, ambulating, and pain was well-controlled Patient Condition at Discharge: Poor Plan - Discharge Summary Discharge Rx Participant: No New Discharge Prescriptions: New Ciprofloxacin HCl [Cipro] 250 mg PO Q12HR #6 tablet Ketorolac [Toradol] 10 mg PO Q6HR PRN #15 tab PRN Reason: Pain No Action Pravastatin Sodium [Pravachol] 40 mg PO HS amLODIPine [Norvasc] 5 mg PO HS Discharge Medication List Pravastatin Sodium [Pravachol] 40 mg PO HS 05/03/17 [History] amLODIPine [Norvasc] 5 mg PO HS 01/20/21 [History] Ciprofloxacin HCl [Cipro] 250 mg PO Q12HR #6 tablet 10/20/21 [Rx] Ketorolac [Toradol] 10 mg PO Q6HR PRN #15 tab 10/20/21 [Rx] Follow up Appointment(s)/Referral(s): Sascha Loving MD [STAFF PHYSICIAN] - 10/31/21 9:20 am Patient Instructions/Handouts: Robot Assisted Laparoscopic Prostatectomy (DC) Activity/Diet/Wound Care/Special Instructions: Discharge home with Noguera catheter. Instruct patient to use overnight drainage bag as well as urinary leg bag. Okay to shower. Diet as tolerated. No lifting, driving, or strenuous activity. Reassure patient that abdominal wall ecchymosis and penoscrotal swelling are normal. Instruct patient to begin taking antibiotics one day prior to Noguera catheter removal. Discharge Disposition: HOME SELF-CARE
== END 2021-10-22 13:15 | disposition home or self-care (01) ==
LOC: OR 05:46 → 4SSUR 13:19 → OR 10-22 13:15
PROVIDERS: ATTEND Urology
DX: C61 Malignant neoplasm of prostate (principal); E78.5 Hyperlipidemia, unspecified; I10 Essential (primary) hypertension; K21.9 Gastro-esophageal reflux disease without esophagitis; M19.90 Unspecified osteoarthritis, unspecified site; Z87.891 Personal history of nicotine dependence; Z90.79 Acquired absence of other genital organ(s); G89.18 Other acute postprocedural pain
CPT/HCPCS: 38571; S2900; 64999; 86850; 86900; 86901; 93005

== ENCOUNTER 2021-10-27 22:24 | Inpatient (IN) | payer MEDICARE ==
[2021-10-27] MEDS ORDERED: SODIUM CHLORIDE 0.9% 500 ML 500 ML IV STA (22:33)
[2021-10-27] MEDS ORDERED: SODIUM CHLORIDE 0.9% 1,000 ML IV STA (22:33)
--- NOTE | 2021-10-27 22:34 | ED ---
Fever HPI - General Stated Complaint: fever Time Seen by Provider: 10/27/21 22:29 Source: RN notes reviewed, old records reviewed Mode of arrival: EMS Limitations: no limitations - History of Present Illness Initial Comments: This is a 75-year-old male to the ER for evaluation. Patient is every recent prostatectomy secondary to prostate cancer. This was [address] Herman thomson. Patient had a fever and postop's. And has developed fever last night which is increased 203. No nausea no vomiting no diarrhea no other complaints MD Complaint: fever, weakness, other (indwelling crane) -: days(s) Temperature Source: subjective Context: sick contacts, multiple patients with similar symptoms Associated Symptoms: chills, rigors, myalgias, nausea, vomiting Treatments Prior to Arrival: Acetaminophen - Related Data Home Medications Medication Instructions Recorded Confirmed Pravastatin Sodium [Pravachol] 40 mg PO HS 05/03/17 10/27/21 amLODIPine [Norvasc] 5 mg PO HS 01/20/21 10/27/21 Acetaminophen Tab [Tylenol Tab] 1,000 mg PO Q6HR PRN 10/27/21 10/27/21 Ciprofloxacin HCl [Cipro] 250 mg PO DIRECTED 10/27/21 10/27/21 Ketorolac [Toradol] 10 mg PO DIRECTED PRN 10/27/21 10/27/21 Allergies Allergy/AdvReac Type Severity Reaction Status Date / Time No Known Allergies Allergy Verified 10/27/21 22:35 Review of Systems ROS Statement: Those systems with pertinent positive or pertinent negative responses have been documented in the HPI. ROS Other: All systems not noted in ROS Statement are negative. Past Medical History Past Medical History: GERD/Reflux, Hyperlipidemia, Hypertension, Prostate Disorder Additional Past Medical History / Comment(s): PSA ELEVATED History of Any Multi-Drug Resistant Organisms: None Reported Past Surgical History: Tonsillectomy Additional Past Surgical History / Comment(s): ULNAR NERVE LEFT ARM. COLONOSCOPY Past Anesthesia/Blood Transfusion Reactions: No Reported Reaction Past Psychological History: No Psychological Hx Reported Smoking Status: Former smoker Past Alcohol Use History: Occasional Additional Past Alcohol Use History / Comment(s): QUIT SMOKING 50 YEARS AGO Past Drug Use History: None Reported - Past Family History Daughter(s) Family Medical History: Cancer, Pulmonary Embolus Additional Family Medical History / Comment(s): BREAST General Exam General appearance: alert, in no apparent distress Head exam: Present: atraumatic, normocephalic, normal inspection Eye exam: Present: normal appearance, PERRL, EOMI. Absent: scleral icterus, conjunctival injection, periorbital swelling ENT exam: Present: normal exam, mucous membranes moist Neck exam: Present: normal inspection. Absent: tenderness, meningismus, lymphadenopathy Respiratory exam: Present: normal lung sounds bilaterally. Absent: respiratory distress, wheezes, rales, rhonchi, stridor Cardiovascular Exam: Present: normal rhythm, tachycardia, normal heart sounds. Absent: systolic murmur, diastolic murmur, rubs, gallop, clicks GI/Abdominal exam: Present: soft, normal bowel sounds. Absent: distended, tenderness, guarding, rebound, rigid Extremities exam: Present: normal inspection, full ROM, normal capillary refill. Absent: tenderness, pedal edema, joint swelling, calf tenderness Back exam: Present: normal inspection Neurological exam: Present: alert, oriented X3, CN II-XII intact Psychiatric exam: Present: normal affect, normal mood Skin exam: Present: warm, dry, intact, normal color. Absent: rash Course Vital Signs 10/27/21 10/27/21 10/28/21 22:32 23:40 00:38 Temperature 103.1 F H 101.1 F H 103.1 F H Pulse Rate 120 H 98 102 H Respiratory 20 20 20 Rate Blood Pressure 108/58 100/68 O2 Sat by Pulse 96 96 98 Oximetry - Reevaluation(s) Reevaluation #1: 10/28/21 01:16 medical record is reviewed Reevaluation #2: 10/28/21 01:16 patient symptoms are improving Reevaluation #3: 10/28/21 01:17 Patient informed results and questions are answered - Consultations Consultation #1: spoke w Dr Chen for further evaluation Consultation #2: spoke w Dr Ellison re admission he agrees Medical Decision Making - Medical Decision Making 75 male with sepsis UTI elevated lactic acid, patient be admitted for IV hydration symptom management treatment - Lab Data Result diagrams: 10/27/21 22:58 10/27/21 22:58 Lab Results 10/27/21 10/27/21 10/27/21 Range/Units 22:58 22:58 22:58 WBC 3.6 L (3.8-10.6) k/uL RBC 4.48 (4.30-5.90) m/uL Hgb 13.4 (13.0-17.5) gm/dL Hct 40.3 (39.0-53.0) % MCV 89.9 (80.0-100.0) fL MCH 29.8 (25.0-35.0) pg MCHC 33.2 (31.0-37.0) g/dL RDW 12.9 (11.5-15.5) % Plt Count 292 (150-450) k/uL MPV 7.5 Sodium 136 L (137-145) mmol/L Potassium 4.6 (3.5-5.1) mmol/L Chloride 104 (98-107) mmol/L Carbon Dioxide 21 L (22-30) mmol/L Anion Gap 11 mmol/L BUN 20 (9-20) mg/dL Creatinine 1.39 H (0.66-1.25) mg/dL Est GFR (CKD-EPI)AfAm 57 (>60 ml/min/1.73 sqM) Est GFR (CKD-EPI)NonAf 49 (>60 ml/min/1.73 sqM) Glucose 113 H (74-99) mg/dL Plasma Lactic Acid South (0.7-2.0) mmol/L Calcium 8.7 (8.4-10.2) mg/dL Phosphorus 2.1 L (2.5-4.5) mg/dL Magnesium 1.8 (1.6-2.3) mg/dL Total Bilirubin 1.1 (0.2-1.3) mg/dL AST 51 (17-59) U/L ALT 38 (4-49) U/L Alkaline Phosphatase 114 (38-126) U/L Troponin I (0.000-0.034) ng/mL C-Reactive Protein 2.8 H (<1.0) mg/dL Total Protein 6.4 (6.3-8.2) g/dL Albumin 3.8 (3.5-5.0) g/dL Urine Color Yellow Urine Appearance Cloudy (Clear) Urine pH 7.0 (5.0-8.0) Ur Specific [place] 1.016 (1.001-1.035) Urine Protein 1+ H (Negative) Urine Glucose (UA) Negative (Negative) Urine Ketones Negative (Negative) Urine Blood Large H (Negative) Urine Nitrite Positive (Negative) Urine Bilirubin Negative (Negative) Urine Urobilinogen 2.0 (<2.0) mg/dL Ur Leukocyte Esterase Large H (Negative) Urine RBC 166 H (0-5) /hpf Urine WBC 16 H (0-5) /hpf Calcium Oxalate Crystal Rare H (None) /hpf Urine Bacteria Few H (None) /hpf Hyaline Casts 1 (0-2) /lpf Urine Mucus Occasional H (None) /hpf Coronavirus (PCR) (Not Detectd) Influenza Type A RNA (Not Detectd) Influenza Type B (PCR) (Not Detectd) 10/27/21 10/27/21 10/27/21 Range/Units 22:58 22:58 22:58 WBC (3.8-10.6) k/uL RBC (4.30-5.90) m/uL Hgb (13.0-17.5) gm/dL Hct (39.0-53.0) % MCV (80.0-100.0) fL MCH (25.0-35.0) pg MCHC (31.0-37.0) g/dL RDW (11.5-15.5) % Plt Count (150-450) k/uL MPV Sodium (137-145) mmol/L Potassium (3.5-5.1) mmol/L Chloride (98-107) mmol/L Carbon Dioxide (22-30) mmol/L Anion Gap mmol/L BUN (9-20) mg/dL Creatinine (0.66-1.25) mg/dL Est GFR (CKD-EPI)AfAm (>60 ml/min/1.73 sqM) Est GFR (CKD-EPI)NonAf (>60 ml/min/1.73 sqM) Glucose (74-99) mg/dL Plasma Lactic Acid South 3.5 H* (0.7-2.0) mmol/L Calcium (8.4-10.2) mg/dL Phosphorus (2.5-4.5) mg/dL Magnesium (1.6-2.3) mg/dL Total Bilirubin (0.2-1.3) mg/dL AST (17-59) U/L ALT (4-49) U/L Alkaline Phosphatase (38-126) U/L Troponin I 0.019 (0.000-0.034) ng/mL C-Reactive Protein (<1.0) mg/dL Total Protein (6.3-8.2) g/dL Albumin (3.5-5.0) g/dL Urine Color Urine Appearance (Clear) Urine pH (5.0-8.0) Ur Specific [place] (1.001-1.035) Urine Protein (Negative) Urine Glucose (UA) (Negative) Urine Ketones (Negative) Urine Blood (Negative) Urine Nitrite (Negative) Urine Bilirubin (Negative) Urine Urobilinogen (<2.0) mg/dL Ur Leukocyte Esterase (Negative) Urine RBC (0-5) /hpf Urine WBC (0-5) /hpf Calcium Oxalate Crystal (None) /hpf Urine Bacteria (None) /hpf Hyaline Casts (0-2) /lpf Urine Mucus (None) /hpf Coronavirus (PCR) (Not Detectd) Influenza Type A RNA Not Detected (Not Detectd) Influenza Type B (PCR) Not Detected (Not Detectd) 10/27/21 Range/Units 22:58 WBC (3.8-10.6) k/uL RBC (4.30-5.90) m/uL Hgb (13.0-17.5) gm/dL Hct (39.0-53.0) % MCV (80.0-100.0) fL MCH (25.0-35.0) pg MCHC (31.0-37.0) g/dL RDW (11.5-15.5) % Plt Count (150-450) k/uL MPV Sodium (137-145) mmol/L Potassium (3.5-5.1) mmol/L Chloride (98-107) mmol/L Carbon Dioxide (22-30) mmol/L Anion Gap mmol/L BUN (9-20) mg/dL Creatinine (0.66-1.25) mg/dL Est GFR (CKD-EPI)AfAm (>60 ml/min/1.73 sqM) Est GFR (CKD-EPI)NonAf (>60 ml/min/1.73 sqM) Glucose (74-99) mg/dL Plasma Lactic Acid South (0.7-2.0) mmol/L Calcium (8.4-10.2) mg/dL Phosphorus (2.5-4.5) mg/dL Magnesium (1.6-2.3) mg/dL Total Bilirubin (0.2-1.3) mg/dL AST (17-59) U/L ALT (4-49) U/L Alkaline Phosphatase (38-126) U/L Troponin I (0.000-0.034) ng/mL C-Reactive Protein (<1.0) mg/dL Total Protein (6.3-8.2) g/dL Albumin (3.5-5.0) g/dL Urine Color Urine Appearance (Clear) Urine pH (5.0-8.0) Ur Specific [place] (1.001-1.035) Urine Protein (Negative) Urine Glucose (UA) (Negative) Urine Ketones (Negative) Urine Blood (Negative) Urine Nitrite (Negative) Urine Bilirubin (Negative) Urine Urobilinogen (<2.0) mg/dL Ur Leukocyte Esterase (Negative) Urine RBC (0-5) /hpf Urine WBC (0-5) /hpf Calcium Oxalate Crystal (None) /hpf Urine Bacteria (None) /hpf Hyaline Casts (0-2) /lpf Urine Mucus (None) /hpf Coronavirus (PCR) Not Detected (Not Detectd) Influenza Type A RNA (Not Detectd) Influenza Type B (PCR) (Not Detectd) - EKG Data -: EKG Interpreted by Me (EKG is sinus tachycardia 120 AR 209 QRS 100 QTc 357) - Radiology Data Radiology results: report reviewed (Chest x-rays negative for acute disease), image reviewed Critical Care Time Critical Care Time: Yes Total Critical Care Time: 31 Disposition Clinical Impression: Fever, UTI (urinary tract infection), Dehydration, Sepsis, Lactic acidosis Disposition: ADMITTED IP TO THIS HOSP Condition: Serious Is patient prescribed a controlled substance at d/c from ED?: No Referrals: Aaron Escobedo MD [Primary Care Provider] - 1-2 days Time of Disposition: 01:20
[2021-10-27] MEDS ORDERED: IBUPROFEN 800 MG TAB PO STA (22:49)
[2021-10-27] MEDS ORDERED: ACETAMINOPHEN TAB 500 MG TAB PO STA (22:49)
--- NOTE | 2021-10-27 23:40 | XR ---
EXAMINATION TYPE: XR chest 1V portable DATE OF EXAM: 10/27/2021 COMPARISON: 11/25/2019 HISTORY: Cough TECHNIQUE: Single view FINDINGS: Heart is normal. There is some mild atelectasis lateral left lung base. The other lung fiel ds are clear. There are no hilar masses. There are chest leads. Bony thorax appears intact IMPRESSION: Minimal subsegmental atelectasis left lung base is new compared to old exam. Normal heart .
[2021-10-27 23:50] LABS: HCT 40.3 % (39.0-53.0); HGB 13.4 gm/dL (13.0-17.5); MCH 29.8 pg (25.0-35.0); MCHC 33.2 g/dL (31.0-37.0); MCV 89.9 fL (80.0-100.0); Mean Platelet Volume 7.5; Platelet Count 292 k/uL (150-450); RBC 4.48 m/uL (4.30-5.90); RDW 12.9 % (11.5-15.5); WBC 3.6 k/uL (3.8-10.6)
[2021-10-27 23:51] LABS: Albumin 3.8 g/dL (3.5-5.0); C Reactive Protein 2.8 mg/dL (<1.0); Calcium 8.7 mg/dL (8.4-10.2); Magnesium 1.8 mg/dL (1.6-2.3); Phosphorus 2.1 mg/dL (2.5-4.5); Total Bilirubin 1.1 mg/dL (0.2-1.3); Total Protein 6.4 g/dL (6.3-8.2)
[2021-10-28 00:18] LABS: Appearance,Urine Cloudy (Clear); Bacteria,Urine Few /hpf; Bilirubin,Urine Negative (Negative); Blood,Urine Large (Negative); Calcium Oxalate Crystals,Urine Rare /hpf; Color,Urine Yellow; Glucose,Urine (UA) Negative (Negative); Hyaline Casts,Urine 1 /lpf (0-2); Ketones,Urine Negative (Negative); Leukocyte Esterase,Urine Large (Negative); Mucus,Urine Occasional /hpf; Nitrite,Urine Positive (Negative); Protein,Urine 1+ (Negative); RBC,Urine 166 /hpf (0-5); Specific Gravity,Urine 1.016 (1.001-1.035); WBC,Urine 16 /hpf (0-5)
[2021-10-28 00:25] LABS: Potassium 4.6 mmol/L (3.5-5.1)
[2021-10-28] MEDS ORDERED: SODIUM CHLORIDE 0.9% 1,000 ML IV STA (01:03)
[2021-10-28] MEDS ORDERED: MORPHINE SULFATE 4 MG/ML SYRINGE IV PRN (01:12)
[2021-10-28] MEDS ORDERED: LORazepam 2 MG/ML INJ IV PRN (01:12)
[2021-10-28] MEDS ORDERED: NALOXONE 0.4 MG/ML 1 ML VIAL IV PRN (01:12)
[2021-10-28] MEDS ORDERED: IBUPROFEN 400 MG TAB PO PRN (01:12)
[2021-10-28] MEDS ORDERED: ONDANSETRON 4 MG/2 ML VIAL IVP PRN (01:12)
[2021-10-28 01:53] LABS: Band Neutrophils % 40 %; Eosinophils # (M) 0.04 k/uL (0-0.7); Lymphocytes # (M) 0.65 k/uL (1.0-4.8); Monocytes # (M) 0.04 k/uL (0-1.0); Neutrophils % (M) 41 %; Nucleated Red Blood Cells 0 /100 WBC (0-0); Total Cells Counted 200
[2021-10-28] MEDS ORDERED: SODIUM CHLORIDE 0.9% 1,000 ML IV ONE (02:02)
[2021-10-28] MEDS: SODIUM CHLORIDE 0.9% 1,000 ML IV SCH ×4 (02:03→20:53)
--- NOTE | 2021-10-28 09:21 | P.GSHP ---
History of Present Illness H&P Date: 10/28/21 75 yo male admitted for uti with sepsis. the patient underwent a ralp by Dr Loving on 10/20/2021 for prostate cancer. He came to the er with an elevated temperature to 103.He has been weak. He is admitted for cultures, ivf and iv antibiotics.He has no chest pain or leg pain. He does have some mild llq pain. The surgery due to the cancer was techincally more difficult which probably explains the discomfort. - Constitutional Constitutional: Denies chills, Denies fever - EENT Eyes: denies blurred vision, denies pain Ears, nose, mouth and throat: Denies headache, Denies sore throat - Cardiovascular Cardiovascular: Denies chest pain, Denies shortness of breath - Respiratory Respiratory: Denies cough, Denies 7 - Gastrointestinal Gastrointestinal: Denies abdominal pain, Denies diarrhea, Denies nausea, Denies vomiting - Genitourinary (Female) Genitourinary: Denies dysuria, Denies hematuria - Genitourinary (Male) Genitourinary: Denies dysuria, Denies hematuria - Musculoskeletal Musculoskeletal: Denies myalgias - Integumentary Integumentary: Denies pruritus, Denies rash - Neurological Neurological: Denies numbness, Denies weakness - Psychiatric Psychiatric: Denies anxiety, Denies depression - Endocrine Endocrine: Denies fatigue, Denies weight change Past Medical History Past Medical History: GERD/Reflux, Hyperlipidemia, Hypertension, Prostate Disorder Additional Past Medical History / Comment(s): PSA ELEVATED History of Any Multi-Drug Resistant Organisms: None Reported Past Surgical History: Tonsillectomy Additional Past Surgical History / Comment(s): ULNAR NERVE LEFT ARM. COLONOSCOPY Past Anesthesia/Blood Transfusion Reactions: No Reported Reaction Past Psychological History: No Psychological Hx Reported Smoking Status: Former smoker Past Alcohol Use History: Occasional Additional Past Alcohol Use History / Comment(s): QUIT SMOKING 50 YEARS AGO Past Drug Use History: None Reported - Past Family History Daughter(s) Family Medical History: Cancer, Pulmonary Embolus Additional Family Medical History / Comment(s): BREAST Medications and Allergies Home Medications Medication Instructions Recorded Confirmed Type Pravastatin Sodium [Pravachol] 40 mg PO HS 05/03/17 10/27/21 History amLODIPine [Norvasc] 5 mg PO HS 01/20/21 10/27/21 History Acetaminophen Tab [Tylenol Tab] 1,000 mg PO Q6HR PRN 10/27/21 10/27/21 History Ciprofloxacin HCl [Cipro] 250 mg PO DIRECTED 10/27/21 10/27/21 History Ketorolac [Toradol] 10 mg PO DIRECTED PRN 10/27/21 10/27/21 History Allergies Allergy/AdvReac Type Severity Reaction Status Date / Time No Known Allergies Allergy Verified 10/27/21 22:35 Surgical - Exam Vital Signs Temp Pulse Resp BP Pulse Ox 103.1 F H 120 H 20 108/58 96 10/27/21 22:32 10/27/21 22:32 10/27/21 22:32 10/27/21 22:32 10/27/21 22:32 - General well developed, well nourished, no distress - Eyes normal ocular movement, no icteric - ENT no hearing loss, no congestion - Neck no masses, trachea midline - Respiratory normal respiratory effort, clear to auscultation - Cardiovascular Rhythm: regular - Abdomen mild llq tenderness. Abdomen: soft, no guarding, no rigid, no rebound - Genitourinary indwelling catheter. - Integumentary no rash, no abnormal pigmentation - Neurologic no disoriented, no combative - Psychiatric oriented to time, oriented to person, oriented to place, speech is normal, memory intact Results - Labs 10/27/21 22:58 10/27/21 22:58 Abnormal Lab Results - Last 24 Hours (Table) 10/27/21 10/27/21 10/27/21 Range/Units 22:58 22:58 22:58 WBC 3.6 L (3.8-10.6) k/uL Lymphocytes # (Manual) 0.65 L (1.0-4.8) k/uL Sodium 136 L (137-145) mmol/L Carbon Dioxide 21 L (22-30) mmol/L Creatinine 1.39 H (0.66-1.25) mg/dL Glucose 113 H (74-99) mg/dL Plasma Lactic Acid South (0.7-2.0) mmol/L Phosphorus 2.1 L (2.5-4.5) mg/dL C-Reactive Protein 2.8 H (<1.0) mg/dL Urine Protein 1+ H (Negative) Urine Blood Large H (Negative) Ur Leukocyte Esterase Large H (Negative) Urine RBC 166 H (0-5) /hpf Urine WBC 16 H (0-5) /hpf Calcium Oxalate Crystal Rare H (None) /hpf Urine Bacteria Few H (None) /hpf Urine Mucus Occasional H (None) /hpf 10/27/21 Range/Units 22:58 WBC (3.8-10.6) k/uL Lymphocytes # (Manual) (1.0-4.8) k/uL Sodium (137-145) mmol/L Carbon Dioxide (22-30) mmol/L Creatinine (0.66-1.25) mg/dL Glucose (74-99) mg/dL Plasma Lactic Acid South 3.5 H* (0.7-2.0) mmol/L Phosphorus (2.5-4.5) mg/dL C-Reactive Protein (<1.0) mg/dL Urine Protein (Negative) Urine Blood (Negative) Ur Leukocyte Esterase (Negative) Urine RBC (0-5) /hpf Urine WBC (0-5) /hpf Calcium Oxalate Crystal (None) /hpf Urine Bacteria (None) /hpf Urine Mucus (None) /hpf Diabetes panel 10/27/21 Range/Units 22:58 Sodium 136 L (137-145) mmol/L Potassium 4.6 (3.5-5.1) mmol/L Chloride 104 (98-107) mmol/L Carbon Dioxide 21 L (22-30) mmol/L BUN 20 (9-20) mg/dL Creatinine 1.39 H (0.66-1.25) mg/dL Glucose 113 H (74-99) mg/dL Calcium 8.7 (8.4-10.2) mg/dL AST 51 (17-59) U/L ALT 38 (4-49) U/L Alkaline Phosphatase 114 (38-126) U/L Total Protein 6.4 (6.3-8.2) g/dL Albumin 3.8 (3.5-5.0) g/dL Calcium panel 10/27/21 Range/Units 22:58 Calcium 8.7 (8.4-10.2) mg/dL Phosphorus 2.1 L (2.5-4.5) mg/dL Albumin 3.8 (3.5-5.0) g/dL Pituitary panel 10/27/21 Range/Units 22:58 Sodium 136 L (137-145) mmol/L Potassium 4.6 (3.5-5.1) mmol/L Chloride 104 (98-107) mmol/L Carbon Dioxide 21 L (22-30) mmol/L BUN 20 (9-20) mg/dL Creatinine 1.39 H (0.66-1.25) mg/dL Glucose 113 H (74-99) mg/dL Calcium 8.7 (8.4-10.2) mg/dL Adrenal panel 10/27/21 Range/Units 22:58 Sodium 136 L (137-145) mmol/L Potassium 4.6 (3.5-5.1) mmol/L Chloride 104 (98-107) mmol/L Carbon Dioxide 21 L (22-30) mmol/L BUN 20 (9-20) mg/dL Creatinine 1.39 H (0.66-1.25) mg/dL Glucose 113 H (74-99) mg/dL Calcium 8.7 (8.4-10.2) mg/dL Total Bilirubin 1.1 (0.2-1.3) mg/dL AST 51 (17-59) U/L ALT 38 (4-49) U/L Alkaline Phosphatase 114 (38-126) U/L Total Protein 6.4 (6.3-8.2) g/dL Albumin 3.8 (3.5-5.0) g/dL Assessment and Plan Assessment: Impression> uti with sepsis post ralp Plan: ivf , iv ab. cultures
[2021-10-28] MEDS: SENNOSIDES-DOCUSATE SODIUM 1 EACH TAB PO SCH ×2 (11:54→20:53)
[2021-10-28] MEDS: PANTOPRAZOLE 40 MG/10 ML VIAL IVP SCH (11:55)
--- NOTE | 2021-10-28 12:02 | XR ---
EXAMINATION TYPE: XR KUB DATE OF EXAM: 10/28/2021 COMPARISON: NONE HISTORY: Pain TECHNIQUE: One view abdominal series FINDINGS: The osseous structures are intact. The bowel gas pattern is nonspecific. Hypertrophic and degenerati ve change of the spine. There are prominent small bowel loops in the abdomen. IMPRESSION: 1. Nonspecific abdomen. Prominent small bowel loops associated with ileus or enteritis correlate cli nically.
--- NOTE | 2021-10-28 13:14 | CDI ---
Documentation Clarification Form Date: 10/28/2021 01:04:29 PM From: Chiara Smith CCS, CCDS Admit Date: 10/28/2021 01:12:00 AM Patient Name: Black Corbin Visit Number: [id number] Discharge Date: ATTENTION: The Clinical Documentation Specialists (CDI) and [facility] Coding Staff appreciate your assistance in clarifying documentation. Please respond to the clarification below the line at the bottom and electronically sign. The CDI & [facility] Coding staff will review the response and follow-up if needed. Please note: Queries are made part of the Legal Health Record. If you have any questions, please contact the author of this message via ITS. Dr. Juancarlos Soto: Per the 10/28 History & Physical, the patient is admitted with a UTI with Sepsis status post RALP on 10/20/21 by Urology. Per the 10/27 ED Note, the patient still has a Noguera Catheter. Additional clarification regarding the etiology of the UTI is requested. History/Risk Factors per the 10/28 H/P: Prostate Cancer, GERD, Hyperlipidemia, Hypertension. Clinical Indicators: Presented to the ED on 10/27 with fever via EMS, recent Prostatectomy secondary to Prostate Cancer 7 days ago. Admit with Fever, UTI, Dehydration, Sepsis, Lactic Acidosis 10/27 VS: T 103.1, P 120, R 20, BP 108/58, PO 96 RA, BMI: 31.3 10/27 LAB: Urinalysis: Cloudy, 1+ Protein, Large Blood, Large Esterase, RBC 166, WBC 16 Urine Culture: Preliminary. Treatment 10/27: Urine culture (pending), O2 2Lnc, IV Na Cl 1,000 mls @ 130 mls/hr q7H, IV Na Cl 500 mls @ 999 mls/hr q31M, po Tylenol, po Motrin, IV Na Chl 1,000 mls @ 999 mls/hr q1H. 10/28: IV Na Chl 1,000 mls @ 999 mls/hr q1H, IV Rocephin 50 mls @ 100 mls/hr x1. Please clarify the etiology of the UTI, if known: [ ] UTI related to Noguera catheter [ ] UTI not related to Noguera catheter [ ] Other condition, please specify [ ] Unable to determine (Template Last Revised: July 2020) MTDD
--- NOTE | 2021-10-28 17:34 | P.HPIM ---
History of Present Illness H&P Date: 10/28/21 Chief Complaint: Fever, chills, abdomen distention This is a 75-year-old gentleman with recent robotic-assisted laparoscopic prostatectomy with bilateral pelvic lymphadenectomy on 10/20/[address] Monsalve. 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 Additional past medical history includes gastroesophageal reflux disease, hypertension, hyperlipidemia, former smoker, 2 packs a day and quit 50 years ago and multiple other medical issues. Patient had fevers during his prior postoperative stay which had subsided prior to his discharge. Over the last couple of days developed chills, fevers as high as 103 and ongoing abdominal distention-states mildly improved, with indwelling Noguera catheter since OR. On admission tachycardic, T-max 103.1, WBC 3.6, neutrophils.reportable, sodium 136, potassium 4.6, bicarb 21, BUN 20, creatinine 1.39(baseline 1.2). Lactic acid 3.5, ma gnesium 1.8, phosphorus 2.1, CRP 2.8. UA reported 16 WBCs, 166 RBCs, large leukocytes and positive nitrates and large blood, 1+ protein with urine culture pending. Conorovirus/influenza type A and B not detected. Patient recently had traveled prior to surgery out of the country with another couple on a private boat, denies known exposure to anyone sick. Blood cultures obtained, pending. Denies chest pain, palpitations or shortness of breath. Denies lightheadedness or focal deficits. Currently afebrile with tachycardia resolved. Maintaining O2 sats in the high 90s on room air. Chest x-ray reported Minimal subsegmental atelectasis left lung base. EKG unavailable, troponin negative. Complains of bilateral lower quadrant cramping prior to passing of minimal gas. Last bowel movement yesterday morning, small, the day prior, he had loose bowel movements-not diarrhea. Review of Systems ROS Statement: Those systems with pertinent positive or pertinent negative responses have been documented in the HPI. ROS Other: All systems not noted in ROS Statement are negative. Past Medical History Past Medical History: GERD/Reflux, Hyperlipidemia, Hypertension, Prostate Disorder Additional Past Medical History / Comment(s): PSA ELEVATED History of Any Multi-Drug Resistant Organisms: None Reported Past Surgical History: Tonsillectomy Additional Past Surgical History / Comment(s): ULNAR NERVE LEFT ARM. COLONOSCOPY, prostate surgery 10/20/2021 Past Anesthesia/Blood Transfusion Reactions: No Reported Reaction Past Psychological History: No Psychological Hx Reported Smoking Status: Former smoker Past Alcohol Use History: Occasional Additional Past Alcohol Use History / Comment(s): QUIT SMOKING 50 YEARS AGO Past Drug Use History: None Reported - Past Family History Daughter(s) Family Medical History: Cancer, Pulmonary Embolus Additional Family Medical History / Comment(s): BREAST Medications and Allergies Home Medications Medication Instructions Recorded Confirmed Type Pravastatin Sodium [Pravachol] 40 mg PO HS 05/03/17 10/27/21 History amLODIPine [Norvasc] 5 mg PO HS 01/20/21 10/27/21 History Acetaminophen Tab [Tylenol Tab] 1,000 mg PO Q6HR PRN 10/27/21 10/27/21 History Ciprofloxacin HCl [Cipro] 250 mg PO DIRECTED 10/27/21 10/27/21 History Ketorolac [Toradol] 10 mg PO DIRECTED PRN 10/27/21 10/27/21 History Allergies Allergy/AdvReac Type Severity Reaction Status Date / Time No Known Allergies Allergy Verified 10/27/21 22:35 Physical Exam Vitals: Vital Signs Temp Pulse Pulse Resp BP BP Pulse Ox 10/28/21 11:54 76 16 108/59 97 10/28/21 10:23 97.6 F 10/28/21 07:54 98.3 F 85 16 118/81 96 10/28/21 06:13 98.2 F 65 18 90/56 96 10/28/21 02:46 98.9 F 87 20 100/71 100 10/28/21 00:38 103.1 F H 102 H 20 100/68 98 10/27/21 23:40 101.1 F H 98 20 96 10/27/21 22:32 103.1 F H 120 H 20 108/58 96 Intake and Output 10/28/21 10/28/21 10/28/21 06:59 14:59 22:59 Intake Total 830 Output Total 350 Balance 480 Intake: Intake, IV Titration 830 Amount Sodium Chloride 0.9% 1, 780 000 ml @ 130 mls/hr IV . Q7H42M [facility] Rx#:[id number] cefTRIAXone 1 gm In 50 Sodium Chloride 0.9% 50 ml @ 100 mls/hr IVPB Q12HR [facility] Rx#:[id number] Output: Urine 350 Other: Voiding Method Indwelling Catheter Incontinent # Bowel Movements 1 Weight 102 kg PHYSICAL EXAM: VITAL SIGNS: As above GENERAL: Sitting up on stretcher, no acute distress HEENT: Conjunctivae normal. eyes normal. NECK: No JVD. No thyroid enlargement. No LNs CARDIOVASCULAR: S1, S2 regular. No murmur RESPIRATION: Breath sounds diminished in the bases. Fine left basilar crackles. No bronchial breathing. ABDOMEN: Soft, distended, status post recent surgery with minimal tenderness . Laparoscopic sites clean, dry, well approximated. No guarding.Bowel sounds heard. Noguera bag with dark lenin urine LEGS: No edema. no swelling PSYCHIATRY: Alert and oriented X3, mood and affect normal. NERVOUS SYSTEM: Cranial N 2-12 grossly normal. Moves all 4 limbs. Diffuse weakness ,No focal deficits. Strength and sensation grossly intact. Skin: Warm and dry, no rash Results CBC & Chem 7: 10/27/21 22:58 10/27/21 22:58 Labs: Abnormal Lab Results - Last 24 Hours (Table) 10/27/21 10/27/21 10/27/21 Range/Units 22:58 22:58 22:58 WBC 3.6 L (3.8-10.6) k/uL Lymphocytes # (Manual) 0.65 L (1.0-4.8) k/uL Sodium 136 L (137-145) mmol/L Carbon Dioxide 21 L (22-30) mmol/L Creatinine 1.39 H (0.66-1.25) mg/dL Glucose 113 H (74-99) mg/dL Plasma Lactic Acid South (0.7-2.0) mmol/L Phosphorus 2.1 L (2.5-4.5) mg/dL C-Reactive Protein 2.8 H (<1.0) mg/dL Urine Protein 1+ H (Negative) Urine Blood Large H (Negative) Ur Leukocyte Esterase Large H (Negative) Urine RBC 166 H (0-5) /hpf Urine WBC 16 H (0-5) /hpf Calcium Oxalate Crystal Rare H (None) /hpf Urine Bacteria Few H (None) /hpf Urine Mucus Occasional H (None) /hpf 06/09/22 Range/Units 22:58 WBC (3.8-10.6) k/uL Lymphocytes # (Manual) (1.0-4.8) k/uL Sodium (137-145) mmol/L Carbon Dioxide (22-30) mmol/L Creatinine (0.66-1.25) mg/dL Glucose (74-99) mg/dL Plasma Lactic Acid South 3.5 H* (0.7-2.0) mmol/L Phosphorus (2.5-4.5) mg/dL C-Reactive Protein (<1.0) mg/dL Urine Protein (Negative) Urine Blood (Negative) Ur Leukocyte Esterase (Negative) Urine RBC (0-5) /hpf Urine WBC (0-5) /hpf Calcium Oxalate Crystal (None) /hpf Urine Bacteria (None) /hpf Urine Mucus (None) /hpf Microbiology - Last 24 Hours (Table) 10/28/21 01:30 Blood Culture - Final Blood 10/28/21 01:30 Blood Culture - Final Blood 10/27/21 22:58 Urine Culture - Preliminary Urine,Voided Thrombosis Risk Factor Assmnt - Choose All That Apply Each Risk Factor Represents 3 Points: Age 75 years or older Thrombosis Risk Factor Assessment Total Risk Factor Score: 3 Thrombosis Risk Factor Assessment Level: Moderate Risk Assessment and Plan Assessment: Sepsis secondary to acute UTI related to postop Noguera catheter. Abdominal distention,possible enteritis related to recent robotic-assisted laparoscopic prostatectomy with bilateral pelvic lymphadenectomy secondary to prostate cancer, on 10/20/2021 Possible Bacteremia, blood cultures finalizing Lactic acidosis Dehydration Acute renal failure Gastroesophageal reflux disease Hypertension Hyperlipidemia Former nicotine dependence Plan: Continue on current medication regime ,monitoring and symptomatic treatment. IV fluid resuscitation, IV antibiotics, currently on Rocephin, antiemetics. Infectious disease consulted regarding bacteremia. KUB ordered regarding ongoing abdominal distention. Aggressive pulmonary toileting with incentive spirometer ordered. Evaluated by urology, recommendations noted and appreciated. Further recommendations to follow. The impression and plan of care has been dictated as directed. : I performed a history and examination of this patient, discussed the same with the dictator. I agree with the dictator's note ,documented as a scribe. Any additional findings or plans will be noted.
[2021-10-28] MEDS: ACETAMINOPHEN TAB 325 MG TAB PO PRN (18:40)
[2021-10-28] MEDS: PRAVASTATIN SODIUM 40 MG TAB PO SCH (20:53)
[2021-10-28] MEDS: amLODIPine 5 MG TAB PO SCH (20:53)
[2021-10-29] MEDS: ACETAMINOPHEN TAB 325 MG TAB PO PRN (04:57)
[2021-10-29] MEDS: SODIUM CHLORIDE 0.9% 1,000 ML IV SCH ×3 (04:57→20:40)
--- NOTE | 2021-10-29 07:06 | XR ---
EXAMINATION TYPE: XR chest 1V DATE OF EXAM: 10/29/2021 COMPARISON: 10/27/2021 HISTORY: Chest pain TECHNIQUE: Single frontal view of the chest is obtained. FINDINGS: There is no focal air space opacity, pleural effusion, or pneumothorax seen. The cardiac silhouette size is within normal limits. The osseous structures are intact. IMPRESSION: No acute process.
[2021-10-29] MEDS: PANTOPRAZOLE 40 MG/10 ML VIAL IVP SCH (07:39)
[2021-10-29] MEDS: SENNOSIDES-DOCUSATE SODIUM 1 EACH TAB PO SCH ×2 (07:39→21:27)
--- NOTE | 2021-10-29 11:29 | P.PN ---
Subjective Progress Note Date: 10/29/21 Principal diagnosis: Postop radical prostatectomy, E. coli, urinary tract infection Patient was discharged last week following a radical prostatectomy, developed chills and fever presented to the emergency room urine culture was performed final demonstrated E. coli, patient was currently placed on Rocephin IV, with identification of E. coli antibiotic was changed to Cipro 750 by mouth daily we'll continue to follow Rocephin was stopped and patient continues to progress anticipate discharge home tomorrow on oral antibiotics Objective - Vital Signs Vital signs: Vital Signs Temp 100.2 F H 10/29/21 04:52 Pulse 100 10/29/21 04:52 Resp 18 10/29/21 04:52 BP 116/65 10/29/21 04:52 Pulse Ox 92 L 10/29/21 04:52 FiO2 Intake & Output 10/28/21 10/29/21 10/29/21 18:59 06:59 18:59 Intake Total 1090 1560 Output Total 650 600 Balance 440 960 Weight 102 kg Intake: Intake, IV Titration 1090 1560 Amount Sodium Chloride 0.9% 1, 780 1560 000 ml @ 130 mls/hr IV . Q7H42M [facility] Rx#:[id number] Sodium Chloride 0.9% 1, 260 000 ml @ 130 mls/hr IV . Q7H42M [facility] Rx#:[id number] cefTRIAXone 1 gm In 50 Sodium Chloride 0.9% 50 ml @ 100 mls/hr IVPB Q12HR [facility] Rx#:[id number] Output: Urine 650 600 Other: Voiding Method Incontinent Indwelling Catheter Indwelling Catheter # Bowel Movements 1 - Exam General: [Patient awake, alert and oriented times 3. Patient in no acute distress.] HEENT: [PERRL. EOMI. No pharyngeal erythema or exudate.] Neck: [No adenopathy.] Cardiac: [Heart regular in rate and rhythm. No S3. No S4. No clicks, rubs. No murmur.] Lungs: [Clear to auscultation bilaterally.] Abdomen: [No mass. No organomegaly. Bowel sounds presnt and normoactive in all 4 quadrants. Incision clean and dry new dressing noted Extremes: [No edema no cyanosis no claudication normal pulses] : Normal male genitalia Musculoskeletal: [No joint erythema, edema or tenderness.] Skin: [No rash.] Neurologic: [No lateralizing deficits. CN II - XII grossly intact.] Lymphatic: [No adenopathy.] - Labs CBC & Chem 7: 10/27/21 22:58 10/27/21 22:58 Labs: Microbiology - Last 24 Hours (Table) 10/28/21 01:30 Blood Culture Gram Stain - Preliminary Blood Blood Culture - Preliminary Gram Neg Bacilli 10/28/21 01:30 Blood Culture Gram Stain - Preliminary Blood Blood Culture - Preliminary Escherichia coli 10/28/21 01:30 Blood Culture - Final Blood 10/28/21 01:30 Blood Culture - Final Blood 10/27/21 22:58 Urine Culture - Preliminary Urine,Voided Assessment and Plan (1) Dehydration Current Visit: Yes Status: Acute Code(s): E86.0 - DEHYDRATION SNOMED Code(s): 71887996 (2) Fever Current Visit: Yes Status: Acute Code(s): R50.9 - FEVER, UNSPECIFIED SNOMED Code(s): 428940669 (3) Lactic acidosis Current Visit: Yes Status: Acute Code(s): E87.2 - ACIDOSIS SNOMED Code(s): 52782696 (4) Sepsis Current Visit: Yes Status: Acute Code(s): A41.9 - SEPSIS, UNSPECIFIED ORGANISM SNOMED Code(s): 93111273 (5) UTI (urinary tract infection) Current Visit: Yes Status: Acute Code(s): N39.0 - URINARY TRACT INFECTION, SITE NOT SPECIFIED SNOMED Code(s): 56373258 (6) Malignant neoplasm of prostate Current Visit: No Status: Acute Code(s): C61 - MALIGNANT NEOPLASM OF PROSTATE SNOMED Code(s): 565325089 Plan: Postop radical prostatectomy approximately 1 week UTI, E. coli identified Antibiotic changed to fluoroquinolone, Cipro 750 once daily Aggressive rehydration If patient continues to progress anticipate discharge home tomorrow on oral fluoroquinolone as well as urology agrees Time with Patient: Greater than 30
[2021-10-29 11:42] LABS: African American GFR (CKD) 67.7 (60.0-200.0); Albumin/Globulin Ratio 1.58 (1.60-3.17); Anion Gap 9.2 mmol/L (10.00-18.00); BUN/Creat Ratio 14.25 Ratio (12.00-20.00); Blood Urea Nitrogen 17.1 mg/dL (9.0-27.0); Calcium 7.8 mg/dL (8.7-10.3); Carbon Dioxide 21.8 mmol/L (20.0-27.5); Globulin 1.9 g/dL (1.6-3.3); Magnesium 1.8 mg/dL (1.5-2.4); Non-African American GFR(CKD) 58.4 (60.0-200.0); Phosphorus 2.1 mg/dL (2.4-5.1); Potassium 3.8 mmol/L (3.5-5.5); Total Bilirubin 0.4 mg/dL (0.30-1.20); Total Protein 4.9 g/dL (6.2-8.2)
[2021-10-29] MEDS ORDERED: CIPROFLOXACIN HCL 250 MG TAB PO SCH (12:00)
[2021-10-29 12:36] LABS: Basophils # (A) 0.02 X 10*3/uL (0.00-0.10); Basophils % (A) 0.2 %; Eosinophils # (A) 0.12 X 10*3/uL (0.04-0.35); Eosinophils % (A) 1.1 %; HCT 32.5 % (39.6-50.0); HGB 10.6 g/dL (13.0-17.0); Immature Grans, Automated 0.7 %; Lymphocytes # (A) 0.57 X 10*3/uL (0.90-5.00); Lymphocytes % (A) 5.1 %; MCH 29.7 pg (27.0-32.0); MCHC 32.6 g/dL (32.0-37.0); Mean Platelet Volume 10.3 fL (9.5-12.2); Monocytes # (A) 0.13 X 10*3/uL (0.20-1.00); Monocytes % (A) 1.2 %; NRBC Per 100 WBC 0 /100 WBCS (0.0-0.0); Neutrophils # (A) 10.31 X 10*3/uL (1.80-7.70); Neutrophils % (A) 91.7 %; Platelet Count 210 X 10*3/uL (140-440); RBC 3.57 X 10*6/uL (4.40-5.60); RDW 13.4 % (11.5-14.5); WBC 11.23 X 10*3/uL (4.50-10.00)
[2021-10-29 12:37] LABS: RBC Morphology NORMAL
--- NOTE | 2021-10-29 13:07 | P.PN ---
Subjective Progress Note Date: 10/29/21 The patient is in the hospital status post robotic-assisted radical prostatectomy about a week ago by . He developed fever and chills consistent with a urinary tract infection with sepsis. [facility] and IV antibiotics. He is slowly recuperating. DR. Samuel of infectious disease is seen the patient and his adjusted his antibiotics. His urine is clear. His abdomen is soft. He will continue with IV antibiotics until the cultures are back. Objective - Vital Signs Vital signs: Vital Signs Temp 98.1 F 10/29/21 11:44 Pulse 100 10/29/21 11:44 Resp 18 10/29/21 11:44 BP 160/77 10/29/21 11:44 Pulse Ox 94 L 10/29/21 11:44 FiO2 Intake & Output 10/28/21 10/29/21 10/29/21 18:59 06:59 18:59 Intake Total 1090 1560 Output Total 650 600 Balance 440 960 Weight 102 kg Intake: Intake, IV Titration 1090 1560 Amount Sodium Chloride 0.9% 1, 780 1560 000 ml @ 130 mls/hr IV . Q7H42M [facility] Rx#:[id number] Sodium Chloride 0.9% 1, 260 000 ml @ 130 mls/hr IV . Q7H42M [facility] Rx#:[id number] cefTRIAXone 1 gm In 50 Sodium Chloride 0.9% 50 ml @ 100 mls/hr IVPB Q12HR [facility] Rx#:[id number] Output: Urine 650 600 Other: Voiding Method Incontinent Indwelling Catheter Indwelling Catheter # Bowel Movements 1 - Labs CBC & Chem 7: 10/29/21 07:44 10/29/21 07:44 Labs: Abnormal Lab Results - Last 24 Hours (Table) 10/29/21 10/29/21 Range/Units 07:44 07:44 WBC 11.23 H (4.50-10.00) X 10*3/uL RBC 3.57 L (4.40-5.60) X 10*6/uL Hgb 10.6 L (13.0-17.0) g/dL Hct 32.5 L (39.6-50.0) % Immature Gran # 0.08 H (0.00-0.04) X 10*3/uL Neutrophils # 10.31 H (1.80-7.70) X 10*3/uL Lymphocytes # 0.57 L (0.90-5.00) X 10*3/uL Monocytes # 0.13 L (0.20-1.00) X 10*3/uL Anion Gap 9.20 L (10.00-18.00) mmol/L Est GFR (CKD-EPI)NonAf 58.4 L (60.0-200.0) Glucose 111 H (70-110) mg/dL Calcium 7.8 L (8.7-10.3) mg/dL Phosphorus 2.1 L (2.4-5.1) mg/dL Total Protein 4.9 L (6.2-8.2) g/dL Albumin 3.0 L (3.8-4.9) g/dL Albumin/Globulin Ratio 1.58 L (1.60-3.17) g/dL Microbiology - Last 24 Hours (Table) 10/28/21 01:30 Blood Culture Gram Stain - Preliminary Blood Blood Culture - Preliminary Gram Neg Bacilli 10/28/21 01:30 Blood Culture Gram Stain - Preliminary Blood Blood Culture - Preliminary Escherichia coli 10/28/21 01:30 Blood Culture - Final Blood 10/28/21 01:30 Blood Culture - Final Blood 10/27/21 22:58 Urine Culture - Preliminary Urine,Voided
[2021-10-29] MEDS: ACETAMINOPHEN TAB 500 MG TAB PO PRN ×2 (14:17→20:42)
[2021-10-29] MEDS: amLODIPine 5 MG TAB PO SCH (20:40)
[2021-10-29] MEDS: PRAVASTATIN SODIUM 40 MG TAB PO SCH (20:40)
--- NOTE | 2021-10-29 22:44 | P.CONS ---
History of Present Illness - Reason for Consult Consult date: 10/29/21 Bacteremia Requesting physician: Elda Hallman - Chief Complaint Fever and abdominal distention x 1 day - History of Present Illness Patient is a 75-year-old male with a past medical history significant for prostate cancer patient is status post robotic assisted laparoscopic prostatectomy with bilateral pelvic lymphadenectomy, patient was subsequently discharged home with indwelling Noguera catheter patient is presenting to the ER 2 nights ago for evaluation of weakness and a fever of 103 F, pain becoming generalized weakness and no energy and complaining of rigors and chills denies having any headache no chest pain or shortness of breath or cough no nausea no vomiting no abdominal pain no diarrhea patient on presentation to the hospital did have a fever of 103.1 F, patient did have low-grade fever 100.1 this morning patient did have a leukopenia initially with a white count of 11.3 today creatinine is normal lactic acid was elevated subsequently came down liver enzymes are normal did have a positive UA urine showing gram-negative blood culture with gram-negative infectious disease was consulted for further management of antibiotic therapy Review of Systems Positive point has been mentioned in the HPI rest of the systems are negative Past Medical History Past Medical History: GERD/Reflux, Hyperlipidemia, Hypertension, Prostate Disorder Additional Past Medical History / Comment(s): PSA ELEVATED History of Any Multi-Drug Resistant Organisms: None Reported Past Surgical History: Tonsillectomy Additional Past Surgical History / Comment(s): ULNAR NERVE LEFT ARM. COLONOSC OPY, prostate surgery 10/20/2021 Past Anesthesia/Blood Transfusion Reactions: No Reported Reaction Past Psychological History: No Psychological Hx Reported Smoking Status: Former smoker Past Alcohol Use History: Occasional Additional Past Alcohol Use History / Comment(s): QUIT SMOKING 50 YEARS AGO Past Drug Use History: None Reported - Past Family History Daughter(s) Family Medical History: Cancer, Pulmonary Embolus Additional Family Medical History / Comment(s): BREAST Medications and Allergies Home Medications Medication Instructions Recorded Confirmed Type Pravastatin Sodium [Pravachol] 40 mg PO HS 05/03/17 10/27/21 History amLODIPine [Norvasc] 5 mg PO HS 01/20/21 10/27/21 History Acetaminophen Tab [Tylenol Tab] 1,000 mg PO Q6HR PRN 10/27/21 10/27/21 History Ciprofloxacin HCl [Cipro] 250 mg PO DIRECTED 10/27/21 10/27/21 History Ketorolac [Toradol] 10 mg PO DIRECTED PRN 10/27/21 10/27/21 History Allergies Allergy/AdvReac Type Severity Reaction Status Date / Time No Known Allergies Allergy Verified 10/27/21 22:35 Physical Exam Vitals: Vital Signs Temp Pulse Resp BP Pulse Ox 10/29/21 04:52 100.2 F H 100 18 116/65 92 L 10/28/21 21:00 99.3 F 95 20 162/69 95 Intake and Output 10/28/21 10/29/21 10/29/21 22:59 06:59 14:59 Intake Total 260 1560 Output Total 300 600 Balance -40 960 Intake: Intake, IV Titration 260 1560 Amount Sodium Chloride 0.9% 1, 1560 000 ml @ 130 mls/hr IV . Q7H42M [facility] Rx#:[id number] Sodium Chloride 0.9% 1, 260 000 ml @ 130 mls/hr IV . Q7H42M [facility] Rx#:[id number] Output: Urine 300 600 Other: Voiding Method Indwelling Catheter Indwelling Catheter GENERAL DESCRIPTION: An elderly male lying in bed, no distress. No tachypnea or accessory muscle of respiration use. HEENT: Shows Pallor , no scleral icterus. Oral mucous membrane is dry. No ph aryngeal erythema or thrush NECK: Trachea central, no thyromegaly. LUNGS: Unlabored breathing. Clear to auscultation anteriorly. No wheeze or crackle. HEART: S1, S2, regular rate and rhythm. No loud murmur ABDOMEN: Soft, no tenderness , guarding or rigidity, no organomegaly EXTREMITIES: No edema of feet. SKIN: No rash, no masses palpable. NEUROLOGICAL: The patient is awake, alert, oriented x3, mood and affect normal. Results CBC & Chem 7: 10/29/21 07:44 10/29/21 07:44 Labs: Abnormal Lab Results - Last 24 Hours (Table) 10/29/21 Range/Units 07:44 Anion Gap 9.20 L (10.00-18.00) mmol/L Est GFR (CKD-EPI)NonAf 58.4 L (60.0-200.0) Glucose 111 H (70-110) mg/dL Calcium 7.8 L (8.7-10.3) mg/dL Phosphorus 2.1 L (2.4-5.1) mg/dL Total Protein 4.9 L (6.2-8.2) g/dL Albumin 3.0 L (3.8-4.9) g/dL Albumin/Globulin Ratio 1.58 L (1.60-3.17) g/dL Microbiology - Last 24 Hours (Table) 10/28/21 01:30 Blood Culture Gram Stain - Preliminary Blood Blood Culture - Preliminary Gram Neg Bacilli 10/28/21 01:30 Blood Culture Gram Stain - Preliminary Blood Blood Culture - Preliminary Escherichia coli 10/28/21 01:30 Blood Culture - Final Blood 10/28/21 01:30 Blood Culture - Final Blood 10/27/21 22:58 Urine Culture - Preliminary Urine,Voided Assessment and Plan (1) Sepsis Current Visit: Yes Status: Acute Code(s): A41.9 - SEPSIS, UNSPECIFIED ORGANISM SNOMED Code(s): 64210754 Plan: 1patient presented to hospital with sepsis in this patient did have a fever leukopenia and elevated lactic acid, and now with gram-negative bacteremia source likely urinary in this patient who recently did have robotic assisted laparoscopic prostatectomy for prostate cancer. 2Rocephin 2 g daily while waiting for the culture to finalize. 3blood cultures will be repeated document clearance of bacteremia We will follow on clinical condition and cultures to further adjust medication if needed Thank you for this consultation will follow this patient along with you Time with Patient: Greater than 30
[2021-10-30] MEDS: ACETAMINOPHEN TAB 500 MG TAB PO PRN ×2 (05:38→19:44)
[2021-10-30] MEDS: SODIUM CHLORIDE 0.9% 1,000 ML IV SCH ×3 (05:38→19:44)
[2021-10-30] MEDS: SENNOSIDES-DOCUSATE SODIUM 1 EACH TAB PO SCH ×2 (08:45→21:34)
[2021-10-30] MEDS: PANTOPRAZOLE 40 MG/10 ML VIAL IVP SCH (08:46)
--- NOTE | 2021-10-30 12:23 | P.PN ---
Subjective Progress Note Date: 10/30/21 The patient is in the hospital post-radical prostatectomy. He has urinary tract infection with sepsis. He has grown E. coli pansensitive to all antibiotics and his urine. He low-grade temperature last night he is afebrile today. I'll treat him one more day of IV antibiotics and then he can be discharged home tomorrow on oral antibiotics. We'll probably remove the catheter tomorrow. He'll follow-up in the office after that. Objective - Vital Signs Vital signs: Vital Signs Temp 98.2 F 10/30/21 11:35 Pulse 85 10/30/21 11:35 Resp 18 10/30/21 11:35 BP 150/85 10/30/21 11:35 Pulse Ox 94 L 10/30/21 04:41 FiO2 Intake & Output 10/29/21 10/30/21 10/30/21 18:59 06:59 18:59 Intake Total 3280 1960 Output Total 300 1000 Balance 2980 960 Intake: Intake, IV Titration 1500 1560 Amount Sodium Chloride 0.9% 1, 1300 1560 000 ml @ 130 mls/hr IV . Q7H42M [facility] Rx#:[id number] cefTRIAXone 1 gm In 100 Sodium Chloride 0.9% 50 ml @ 100 mls/hr IVPB [facility]CE [facility] Rx#:[id number] cefTRIAXone 2 gm In 100 Sodium Chloride 0.9% 50 ml @ 100 mls/hr IVPB Q24HR [facility] Rx#:[id number] Oral 1780 400 Output: Urine 300 1000 Other: Voiding Method Indwelling Catheter Indwelling Catheter Indwelling Catheter # Voids 1 # Bowel Movements 3 - Labs CBC & Chem 7: 10/29/21 07:44 10/29/21 07:44 Labs: Abnormal Lab Results - Last 24 Hours (Table) 10/29/21 Range/Units 07:44 WBC 11.23 H (4.50-10.00) X 10*3/uL RBC 3.57 L (4.40-5.60) X 10*6/uL Hgb 10.6 L (13.0-17.0) g/dL Hct 32.5 L (39.6-50.0) % Immature Gran # 0.08 H (0.00-0.04) X 10*3/uL Neutrophils # 10.31 H (1.80-7.70) X 10*3/uL Lymphocytes # 0.57 L (0.90-5.00) X 10*3/uL Monocytes # 0.13 L (0.20-1.00) X 10*3/uL Microbiology - Last 24 Hours (Table) 10/27/21 22:58 Urine Culture - Final Urine,Voided Escherichia coli 10/28/21 01:30 Blood Culture Gram Stain - Preliminary Blood Blood Culture - Preliminary Gram Neg Bacilli
--- NOTE | 2021-10-30 12:46 | P.PN ---
Subjective Progress Note Date: 10/30/21 Principal diagnosis: Postop radical prostatectomy, E. coli, urinary tract infection Patient was discharged last week following a radical prostatectomy, developed chills and fever presented to the emergency room urine culture was performed final demonstrated E. coli, patient was currently placed on Rocephin IV, with identification of E. coli antibiotic was changed to Rocephin 1 g every 12 hours per infectious disease, as long as patient remains afebrile, anticipate change to oral antibiotics, anticipate removal of Noguera catheter and subsequent discharge home tomorrow Objective - Vital Signs Vital signs: Vital Signs Temp 98.2 F 10/30/21 11:35 Pulse 85 10/30/21 11:35 Resp 18 10/30/21 11:35 BP 150/85 10/30/21 11:35 Pulse Ox 94 L 10/30/21 04:41 FiO2 Intake & Output 10/29/21 10/30/21 10/30/21 18:59 06:59 18:59 Intake Total 3280 1960 Output Total 300 1000 Balance 2980 960 Intake: Intake, IV Titration 1500 1560 Amount Sodium Chloride 0.9% 1, 1300 1560 000 ml @ 130 mls/hr IV . Q7H42M [facility] Rx#:[id number] cefTRIAXone 1 gm In 100 Sodium Chloride 0.9% 50 ml @ 100 mls/hr IVPB ONCE ONE Rx#:[id number] cefTRIAXone 2 gm In 100 Sodium Chloride 0.9% 50 ml @ 100 mls/hr IVPB Q24HR [facility] Rx#:[id number] Oral 1780 400 Output: Urine 300 1000 Other: Voiding Method Indwelling Catheter Indwelling Catheter Indwelling Catheter # Voids 1 # Bowel Movements 3 - Exam General: [Patient awake, alert and oriented times 3. Patient in no acute distress.] HEENT: [PERRL. EOMI. No pharyngeal erythema or exudate.] Neck: [No adenopathy.] Cardiac: [Heart regular in rate and rhythm. No S3. No S4. No clicks, rubs. No murmur.] Lungs: [Clear to auscultation bilaterally.] Abdomen: [No mass. No organomegaly. Bowel sounds presnt and normoactive in all 4 quadrants. Incision clean and dry new dressing noted Extremes: [No edema no cyanosis no claudication normal pulses] : Normal male genitalia Musculoskeletal: [No joint erythema, edema or tenderness.] Skin: [No rash.] Neurologic: [No lateralizing deficits. CN II - XII grossly intact.] Lymphatic: [No adenopathy.] - Labs CBC & Chem 7: 10/29/21 07:44 10/29/21 07:44 Labs: Microbiology - Last 24 Hours (Table) 10/27/21 22:58 Urine Culture - Final Urine,Voided Escherichia coli 10/28/21 01:30 Blood Culture Gram Stain - Preliminary Blood Blood Culture - Preliminary Gram Neg Bacilli Assessment and Plan (1) Dehydration Narrative/Plan: Improved Current Visit: Yes Status: Acute Code(s): E86.0 - DEHYDRATION SNOMED Code(s): 77189012 (2) Fever Narrative/Plan: Current IV antibiotic therapy consisting of Rocephin 1 g every 12 hours Current Visit: Yes Status: Acute Code(s): R50.9 - FEVER, UNSPECIFIED SNOMED Code(s): 748903632 (3) Lactic acidosis Narrative/Plan: Resolved with rehydration Current Visit: Yes Status: Acute Code(s): E87.2 - ACIDOSIS SNOMED Code(s): 81270824 (4) Sepsis Narrative/Plan: Resolving, patient rehydrated Lactic acidosis resolved Vital signs stable Current Visit: Yes Status: Acute Code(s): A41.9 - SEPSIS, UNSPECIFIED ORGANISM SNOMED Code(s): 25967158 (5) UTI (urinary tract infection) Narrative/Plan: Continued IV antibiotics Current Visit: Yes Status: Acute Code(s): N39.0 - URINARY TRACT INFECTION, SITE NOT SPECIFIED SNOMED Code(s): 14461642 (6) Malignant neoplasm of prostate Current Visit: No Status: Acute Code(s): C61 - MALIGNANT NEOPLASM OF PROSTATE SNOMED Code(s): 083622815 Plan: Postop radical prostatectomy approximately 1 week UTI, E. coli identified IV antibiotics, Rocephin 1 g every 12 hour2 Aggressive rehydration If patient continues to progress anticipate switching to oral antibiotics, removing Noguera catheter, discharging patient home Time with Patient: Greater than 30
[2021-10-30] MEDS: amLODIPine 5 MG TAB PO SCH (21:34)
[2021-10-30] MEDS: PRAVASTATIN SODIUM 40 MG TAB PO SCH (21:34)
--- NOTE | 2021-10-30 22:50 | P.PN ---
Subjective Progress Note Date: 10/30/21 Principal diagnosis: E coli UTI and bacteremia Patient is a 75-year-old male with recent history of prostatectomy subsequently presented to hospital with fever rigors and chills and did have evidence of E. coli UTI and bacteremia. On today's evaluation that is 10/30/2021, the patient fever pattern has improved however he still running a low-grade fever 100.5F, the patient denies having any chest pain or shortness of breath or cough no nausea no vomiting abdominal p ain or diarrhea Objective - Vital Signs Vital signs: Vital Signs Temp 100.4 F H 10/30/21 07:55 Pulse 90 10/30/21 08:51 Resp 19 10/30/21 08:45 BP 158/70 10/30/21 08:51 Pulse Ox 94 L 10/30/21 04:41 FiO2 Intake & Output 10/29/21 10/30/21 10/30/21 18:59 06:59 18:59 Intake Total 3280 1960 Output Total 300 1000 Balance 2980 960 Intake: Intake, IV Titration 1500 1560 Amount Sodium Chloride 0.9% 1, 1300 1560 000 ml @ 130 mls/hr IV . Q7H42M [facility] Rx#:[id number] cefTRIAXone 1 gm In 100 Sodium Chloride 0.9% 50 ml @ 100 mls/hr IVPB ONCE ONE Rx#:[id number] cefTRIAXone 2 gm In 100 Sodium Chloride 0.9% 50 ml @ 100 mls/hr IVPB Q24HR [facility] Rx#:[id number] Oral 1780 400 Output: Urine 300 1000 Other: Voiding Method Indwelling Catheter Indwelling Catheter Indwelling Catheter # Voids 1 # Bowel Movements 3 - Exam GENERAL DESCRIPTION: An elderly male lying in bed in no distress RESPIRATORY SYSTEM: Unlabored breathing , decreased breath sounds at bases HEART: S1 S2 regular rate and rhythm , ABDOMEN: Soft , no tenderness EXTREMITIES: No edema feet - Labs CBC & Chem 7: 10/29/21 07:44 10/29/21 07:44 Labs: Abnormal Lab Results - Last 24 Hours (Table) 10/29/21 10/29/21 Range/Units 07:44 07:44 WBC 11.23 H (4.50-10.00) X 10*3/uL RBC 3.57 L (4.40-5.60) X 10*6/uL Hgb 10.6 L (13.0-17.0) g/dL Hct 32.5 L (39.6-50.0) % Immature Gran # 0.08 H (0.00-0.04) X 10*3/uL Neutrophils # 10.31 H (1.80-7.70) X 10*3/uL Lymphocytes # 0.57 L (0.90-5.00) X 10*3/uL Monocytes # 0.13 L (0.20-1.00) X 10*3/uL Anion Gap 9.20 L (10.00-18.00) mmol/L Est GFR (CKD-EPI)NonAf 58.4 L (60.0-200.0) Glucose 111 H (70-110) mg/dL Calcium 7.8 L (8.7-10.3) mg/dL Phosphorus 2.1 L (2.4-5.1) mg/dL Total Protein 4.9 L (6.2-8.2) g/dL Albumin 3.0 L (3.8-4.9) g/dL Albumin/Globulin Ratio 1.58 L (1.60-3.17) g/dL Microbiology - Last 24 Hours (Table) 10/27/21 22:58 Urine Culture - Final Urine,Voided Escherichia coli 10/28/21 01:30 Blood Culture Gram Stain - Preliminary Blood Blood Culture - Preliminary Gram Neg Bacilli Assessment and Plan (1) Sepsis Current Visit: Yes Status: Acute Code(s): A41.9 - SEPSIS, UNSPECIFIED ORGANISM SNOMED Code(s): 53441136 Plan: 1patient presented to hospital with sepsis in this patient did have a fever leukopenia and elevated lactic acid, and now with gram-negative bacteremia source likely urinary in this patient who recently did have robotic assisted laparoscopic prostatectomy for prostate cancer. 2patient to continue with Rocephin 2 g daily blood culture has been finalized with E. coli which is sensitive pathogen 3blood cultures will be repeated document clearance of bacteremia 4the patient continued to have a fever would recommend obtaining a CT of the pelvis to be sure no evidence of any abscess that may need to be drained Time with Patient: Less than 30
[2021-10-31] MEDS: SODIUM CHLORIDE 0.9% 1,000 ML IV SCH ×2 (03:37→16:20)
--- NOTE | 2021-10-31 07:50 | CDI ---
Documentation Clarification Form Date: 10/28/2021 01:04:00 PM From: Chiara SmithJIMMY cheng, CCDS Admit Date: 10/28/2021 01:12:00 AM Patient Name: Black Corbin Visit Number: [id number] Discharge Date: ATTENTION: The Clinical Documentation Specialists (CDI) and [facility] Coding Staff appreciate your assistance in clarifying documentation. Please respond to the clarification below the line at the bottom and electronically sign. The CDI & [facility] Coding staff will review the response and follow-up if needed. Please note: Queries are made part of the Legal Health Record. If you have any questions, please contact the author of this message via ITS. Dr. Juancarlos oSto: Please see the second History & Physical documented by the Medical Management Physician on 10/28. The following has been documented: Sepsis secondary to acute UTI related to postopFoley catheter. As the attending, please also document your response to this query. Per the 10/28 History & Physical, the patient is admitted with a UTI with Sepsis status post RALP on 10/20/21 by Urology. Per the 10/27 ED Note, the patient still has a Noguera Catheter. Additional clarification regarding the etiology of the UTI is requested. History/Risk Factors per the 10/28 H/P: Prostate Cancer, GERD, Hyperlipidemia, Hypertension. Clinical Indicators: Presented to the ED on 10/27 with fever via EMS, recent Prostatectomy secondary to Prostate Cancer 7 days ago. Admit with Fever, UTI, Dehydration, Sepsis, Lactic Acidosis 10/27 VS: T 103.1, P 120, R 20, BP 108/58, PO 96 RA, BMI: 31.3 10/27 LAB: Urinalysis: Cloudy, 1+ Protein, Large Blood, Large Esterase, RBC 166, WBC 16 Urine Culture: Preliminary. Treatment 10/27: Urine culture (pending), O2 2Lnc, IV Na Cl 1,000 mls @ 130 mls/hr q7H, IV Na Cl 500 mls @ 999 mls/hr q31M, po Tylenol, po Motrin, IV Na Chl 1,000 mls @ 999 mls/hr q1H. 10/28: IV Na Chl 1,000 mls @ 999 mls/hr q1H, IV Rocephin 50 mls @ 100 mls/hr x1. Please clarify the etiology of the UTI, if known: [ ] UTI related to Noguera catheter [ ] UTI not related to Noguera catheter [ ] Other condition, please specify [ ] Unable to determine (Template Last Revised: July 2020) 11/02 Query response documented by now attending, Dr. Escobedo in the 10/31 PN: Sepsis secondary to acute UTI with E coli related to postop Noguera catheter. (CDS: MEÑO) HARRIETD
[2021-10-31 09:02] LABS: Basophils # (A) 0.02 X 10*3/uL (0.00-0.10); Basophils % (A) 0.3 %; Eosinophils # (A) 0.25 X 10*3/uL (0.04-0.35); Eosinophils % (A) 3.3 %; HCT 31.9 % (39.6-50.0); HGB 10.4 g/dL (13.0-17.0); Immature Grans, Automated 0.4 %; Lymphocytes # (A) 0.75 X 10*3/uL (0.90-5.00); MCHC 32.6 g/dL (32.0-37.0); MCV 88.9 fL (80.0-97.0); Mean Platelet Volume 10.1 fL (9.5-12.2); Monocytes % (A) 5.3 %; NRBC Per 100 WBC 0 /100 WBCS (0.0-0.0); Neutrophils # (A) 6.05 X 10*3/uL (1.80-7.70); Neutrophils % (A) 80.7 %; Platelet Count 196 X 10*3/uL (140-440); RBC 3.59 X 10*6/uL (4.40-5.60); RDW 13.4 % (11.5-14.5)
[2021-10-31 09:10] LABS: African American GFR (CKD) 95.8 (60.0-200.0); Anion Gap 8.3 mmol/L (10.00-18.00); BUN/Creat Ratio 13.11 Ratio (12.00-20.00); Blood Urea Nitrogen 11.8 mg/dL (9.0-27.0); C Reactive Protein 14.8 mg/dL (0.00-0.80); Calcium 7.6 mg/dL (8.7-10.3); Carbon Dioxide 22.7 mmol/L (20.0-27.5); Non-African American GFR(CKD) 82.7 (60.0-200.0); Potassium 3.5 mmol/L (3.5-5.5)
--- NOTE | 2021-10-31 09:46 | P.PN ---
Subjective Had a fever of 100.5 overnight, denies any abdominal pain. Urine and blood culture growing E. coli. Urine clear in the Noguera bag Objective - Vital Signs Vital signs: Vital Signs Temp 98.5 F 10/31/21 05:00 Pulse 77 10/31/21 05:00 Resp 16 10/31/21 05:00 BP 153/78 10/31/21 05:00 Pulse Ox 96 10/31/21 05:00 FiO2 Intake & Output 10/30/21 10/31/21 10/31/21 18:59 06:59 18:59 Intake Total 1970 Output Total 1500 1500 500 Balance -1500 470 -500 Intake: Intake, IV Titration 1430 Amount Sodium Chloride 0.9% 1, 1430 000 ml @ 130 mls/hr IV . Q7H42M [facility] Rx#:[id number] Oral 540 Output: Urine 1500 1500 500 Other: Voiding Method Indwelling Catheter Indwelling Catheter # Bowel Movements 1 - Constitutional General appearance: Present: no acute distress - Gastrointestinal General gastrointestinal: Present: soft. Absent: distended - Genitourinary Genitourinary Comment(s): urine clear - Psychiatric Psychiatric: Present: A&O x's 3 - Labs CBC & Chem 7: 10/31/21 05:56 10/31/21 05:56 Labs: Abnormal Lab Results - Last 24 Hours (Table) 10/31/21 10/31/21 Range/Units 05:56 05:56 RBC 3.59 L (4.40-5.60) X 10*6/uL Hgb 10.4 L (13.0-17.0) g/dL Hct 31.9 L (39.6-50.0) % Lymphocytes # 0.75 L (0.90-5.00) X 10*3/uL Anion Gap 8.30 L (10.00-18.00) mmol/L Calcium 7.6 L (8.7-10.3) mg/dL C-Reactive Protein 14.80 H (0.00-0.80) mg/dL Microbiology - Last 24 Hours (Table) 10/28/21 01:30 Blood Culture Gram Stain - Final Blood Blood Culture - Final Escherichia coli 10/28/21 01:30 Blood Culture Gram Stain - Final Blood Blood Culture - Final Escherichia coli 10/27/21 22:58 Urine Culture - Final Urine,Voided Escherichia coli Assessment and Plan Assessment: 75-year-old male status post robotic prostatectomy by Dr. Loving on 10/20, admitted with sepsis secondary to UTI. Urine and blood culture growing E. coli, had a low-grade fever overnight. Given persistent fever recommend keeping in the hospital for now, if afebrile we'll plan on potentially removing catheter tomorrow
[2021-10-31] MEDS: PANTOPRAZOLE 40 MG/10 ML VIAL IVP SCH (10:03)
[2021-10-31] MEDS: SENNOSIDES-DOCUSATE SODIUM 1 EACH TAB PO SCH ×2 (10:04→21:05)
--- NOTE | 2021-10-31 16:16 | P.PN ---
Subjective Progress Note Date: 10/31/21 10/28/2021 This is a 75-year-old gentleman with recent robotic-assisted laparoscopic prostatectomy with bilateral pelvic lymphadenectomy on 10/20/[address] Monsalve. 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 Additional past medical history includes gastroesophageal reflux disease, hypertension, hyperlipidemia, former smoker, 2 packs a day and quit 50 years ago and multiple other medical issues. Patient had fevers during his prior postoperative stay which had subsided prior to his discharge. Over the last couple of days developed chills, fevers as high as 103 and ongoing abdominal distention-states mildly improved, with indwelling Noguera catheter since OR. On admission tachycardic, T-max 103.1, WBC 3.6, neutrophils.reportable, sodium 136, potassium 4.6, bicarb 21, BUN 20, creatinine 1.39(baseline 1.2). Lactic acid 3.5, magnesium 1.8, phosphorus 2.1, CRP 2.8. UA reported 16 WBCs, 166 RBCs, l arge leukocytes and positive nitrates and large blood, 1+ protein with urine culture pending. Conorovirus/influenza type A and B not detected. Patient recently had traveled prior to surgery out of the country with another couple on a private boat, denies known exposure to anyone sick. Blood cultures obtained, pending. Denies chest pain, palpitations or shortness of breath. Denies lightheadedness or focal deficits. Currently afebrile with tachycardia resolved. Maintaining O2 sats in the high 90s on room air. Chest x-ray reported Minimal subsegmental atelectasis left lung base. EKG unavailable, troponin negative. Complains of bilateral lower quadrant cramping prior to passing of minimal gas. Last bowel movement yesterday morning, small, the day prior, he had loose bowel movements-not diarrhea. 10/31/2021 KUB reported nonspecific abdomen, prominent small bowel loops associated with ileus or enteritis. Patient reports positive bowel movement yesterday, abdomen remains distended but a little softer. Evaluated by infectious disease, continued on Rocephin, while awaiting cultures to finalize . Maintained on IV fluid hydration. T-max 100.5. CRP increased to 14.8. Leukopenic on admission, increased to 1.23 , currently down to 7.5 .CT of abdomen and pelvis ordered. Creatinine 0.9. Denies chest pain, palpitations or shortness of breath. Objective - Vital Signs Vital signs: Vital Signs Temp 100 F H 10/31/21 12:14 Pulse 88 10/31/21 12:14 Resp 16 10/31/21 12:14 BP 147/68 10/31/21 12:14 Pulse Ox 97 10/31/21 12:14 FiO2 Intake & Output 10/30/21 10/31/21 10/31/21 18:59 06:59 18:59 Intake Total 1970 Output Total 1500 1500 500 Balance -1500 470 -500 Intake: Intake, IV Titration 1430 Amount Sodium Chloride 0.9% 1, 1430 000 ml @ 130 mls/hr IV . Q7H42M [facility] Rx#:[id number] Oral 540 Output: Urine 1500 1500 500 Other: Voiding Method Indwelling Catheter Indwelling Catheter Indwelling Catheter # Bowel Movements 1 - Exam PHYSICAL EXAM: VITAL SIGNS: As above GENERAL: Alert and oriented 3, Sitting up in bed, no acute distress HEENT: Conjunctivae normal. eyes normal. NECK: Supple, No JVD. CARDIOVASCULAR: S1, S2 regular. No murmur RESPIRATION: Breath sounds clear to auscultation bilateral bases diminished ABDOMEN: Distended, mildly softer,status post recent surgery with minimal tenderness . No guarding.Bowel sounds heard. Noguera bag with clear yellow urine LEGS: No edema. no swelling NERVOUS SYSTEM: Cranial N 2-12 grossly normal.No focal deficits. Strength and sensation grossly intact. Skin: Warm and dry, no rash. Microbiology 10/30/21 11:10 Blood Blood Culture - Preliminary No Growth after 24 hours 10/28/21 01:30 Blood Blood Culture Gram Stain - Final 10/28/21 01:30 Blood Blood Culture - Final Escherichia coli 10/28/21 01:30 Blood Blood Culture Gram Stain - Final 10/28/21 01:30 Blood Blood Culture - Final Escherichia coli 10/27/21 22:58 Urine,Voided Urine Culture - Final Escherichia coli 10/28/21 01:30 Blood Blood Culture - Final 10/28/21 01:30 Blood Blood Culture - Final - Labs CBC & Chem 7: 10/31/21 05:56 10/31/21 05:56 Labs: Abnormal Lab Results - Last 24 Hours (Table) 10/31/21 10/31/21 Range/Units 05:56 05:56 RBC 3.59 L (4.40-5.60) X 10*6/uL Hgb 10.4 L (13.0-17.0) g/dL Hct 31.9 L (39.6-50.0) % Lymphocytes # 0.75 L (0.90-5.00) X 10*3/uL Anion Gap 8.30 L (10.00-18.00) mmol/L Calcium 7.6 L (8.7-10.3) mg/dL C-Reactive Protein 14.80 H (0.00-0.80) mg/dL Microbiology - Last 24 Hours (Table) 10/30/21 11:10 Blood Culture - Preliminary Blood No Growth after 24 hours 10/28/21 01:30 Blood Culture Gram Stain - Final Blood Blood Culture - Final Escherichia coli 10/28/21 01:30 Blood Culture Gram Stain - Final Blood Blood Culture - Final Escherichia coli Assessment and Plan Assessment: Sepsis secondary to acute UTI with E. coli related to postop Noguera catheter. Leukopenia secondary to the above Abdominal distention,possible enteritis related to recent robotic-assisted laparoscopic prostatectomy with bilateral pelvic lymphadenectomy secondary to prostate cancer, on 10/20/2021, possible abscess. Fevers persist, CT ordered. Bacteremia, E. coli, repeat blood cultures pending Lactic acidosis Dehydration Acute renal failure Gastroesophageal reflux disease Hypertension Hyperlipidemia Former nicotine dependence Plan: Continue on current medication regime ,monitoring and symptomatic treatment. Fevers persist, CT of abdomen and pelvis ordered to rule out possible abscess. Close monitoring of renal function, WBC with repeat labs ordered for a.m. Maintain IV fluids. Antibiotics as per Infectious disease. Repeat blood cultures in progress. Continue with aggressive pulmonary toileting with incentive spirometer reinforced. The impression and plan of care has been dictated as directed. : I performed a history and examination of this patient, discussed the same with the dictator. I agree with the dictator's note ,documented as a scribe. Any additional findings or plans will be noted.
[2021-10-31] MEDS: IOPAMIDOL CONTRAST (ORAL USE) VIAL PO PRN ×2 (18:40→19:36)
[2021-10-31] MEDS: PRAVASTATIN SODIUM 40 MG TAB PO SCH (21:05)
[2021-10-31] MEDS: amLODIPine 5 MG TAB PO SCH (21:05)
--- NOTE | 2021-10-31 21:55 | CT ---
EXAMINATION TYPE: CT abdomen pelvis w con CT DLP: 1849.40 mGycm, Automated exposure control for dose reduction was used. DATE OF EXAM: 10/31/2021 8:36 PM COMPARISON: None. CLINICAL INDICATION:Male, 75 years old with history of fevers, abdominal distention; fever and abdomi nal pain/ distention. Prostatectomy few weeks ago and admitted recently for sepsis TECHNIQUE: Standard CT of the abdomen and pelvis following the administration of 100 cc of Isovue 3 00 IV contrast material. Coronal and sagittal reformats were performed. FINDINGS: LOWER CHEST: There is a trace left pleural effusion. ABDOMEN LIVER: Diffusely hypoattenuating parenchyma. GALLBLADDER AND BILE DUCTS: Unremarkable. PANCREAS: Unremarkable. SPLEEN: Unremarkable. ADRENAL GLANDS: Unremarkable. KIDNEYS AND URETERS: No evidence of hydronephrosis or renal calculus. The ureters are unremarkable. PELVIS BLADDER: Nondistended with Noguera catheter in place. REPRODUCTIVE: Post surgical changes to the prostate gland with surgical bed fluid. Please see below f or description. ABDOMEN & PELVIS STOMACH AND BOWEL: There is fat stranding changes around the sigmoid colon with organizing fluid freda ection with multiple foci of gas seen tracking somewhat from the prostatectomy bed where there is a f ocus of gas of the left pelvic wall and approaches the sigmoid colon. A fluid collection with gas doreen sures 10.7 x 5.9 x 6.4 cm. There appears to be within the fascial plane between the fluid collection and sigmoid colon best appreciated on series 7 image 47. No evidence of bowel obstruction. PERITONEUM: Organizing fluid collection as described above. VASCULATURE: No evidence of aortic aneurysm. The a forementioned fluid collection tracks around the l eft external and common iliac veins and arteries. MUSCULOSKELETAL: No acute osseous abnormalities. Multilevel disc degeneration changes are seen throug hout the spine. LYMPH NODES: No gross evidence for lymphadenopathy. SOFT TISSUE/ABDOMINAL WALL: Postsurgical changes to the anterior abdominal wall. IMPRESSION: 1. Postsurgical changes with organizing fluid collection within the surgical bed and tracking up to the left lower abdomen adjacent to the sigmoid colon. This is favored to represent sequela from prior surgical intervention in the appropriate clinical setting with less likely acute colonic diverticuli tis as it appears there is a fascial wall the colon from the fluid collection. Note is mad e of this fluid collection tracking in close proximity and around the left external and common iliac arteries and veins. 2. Clonic diverticulosis. 3. Noguera catheter in appropriate position. 4. Trace Left pleural effusion.
--- NOTE | 2021-10-31 22:44 | P.PN ---
Subjective Progress Note Date: 10/31/21 Principal diagnosis: E coli UTI and bacteremia Patient is a 75-year-old male with recent history of prostatectomy subsequently presented to hospital with fever rigors and chills and did have evidence of E. coli UTI and bacteremia. On today's evaluation that is 10/31/2021, the patient did have low-grade fever 100F this afternoon, the patient denies having any chest pain or shortness of breath or cough, the patient denies nausea no vomiting abdominal pain or diarrhea Objective - Vital Signs Vital signs: Vital Signs Temp 98.5 F 10/31/21 05:00 Pulse 77 10/31/21 05:00 Resp 16 10/31/21 05:00 BP 153/78 10/31/21 05:00 Pulse Ox 96 10/31/21 05:00 FiO2 Intake & Output 10/30/21 10/31/21 10/31/21 18:59 06:59 18:59 Intake Total 1970 Output Total 1500 1500 500 Balance -1500 470 -500 Intake: Intake, IV Titration 1430 Amount Sodium Chloride 0.9% 1, 1430 000 ml @ 130 mls/hr IV . Q7H42M [facility] Rx#:[id number] Oral 540 Output: Urine 1500 1500 500 Other: Voiding Method Indwelling Catheter Indwelling Catheter Indwelling Catheter # Bowel Movements 1 - Exam GENERAL DESCRIPTION: An elderly male lying in bed in no distress RESPIRATORY SYSTEM: Unlabored breathing , decreased breath sounds at bases HEART: S1 S2 regular rate and rhythm , ABDOMEN: Soft , no tenderness EXTREMITIES: No edema feet - Labs CBC & Chem 7: 10/31/21 05:56 10/31/21 05:56 Labs: Abnormal Lab Results - Last 24 Hours (Table) 10/31/21 10/31/21 Range/Units 05:56 05:56 RBC 3.59 L (4.40-5.60) X 10*6/uL Hgb 10.4 L (13.0-17.0) g/dL Hct 31.9 L (39.6-50.0) % Lymphocytes # 0.75 L (0.90-5.00) X 10*3/uL Anion Gap 8.30 L (10.00-18.00) mmol/L Calcium 7.6 L (8.7-10.3) mg/dL C-Reactive Protein 14.80 H (0.00-0.80) mg/dL Microbiology - Last 24 Hours (Table) 10/28/21 01:30 Blood Culture Gram Stain - Final Blood Blood Culture - Final Escherichia coli 10/28/21 01:30 Blood Culture Gram Stain - Final Blood Blood Culture - Final Escherichia coli 10/27/21 22:58 Urine Culture - Final Urine,Voided Escherichia coli Assessment and Plan (1) Sepsis Current Visit: Yes Status: Acute Code(s): A41.9 - SEPSIS, UNSPECIFIED ORGANISM SNOMED Code(s): 27454708 Plan: 1patient presented to hospital with sepsis in this patient did have a fever leukopenia and elevated lactic acid, and now with gram-negative bacteremia source likely urinary in this patient who recently did have robotic assisted laparoscopic prostatectomy for prostate cancer. 2patient to continue with Rocephin 2 g daily blood culture has been finalized with E. coli which is sensitive pathogen 3blood cultures repeat 2 document clearance of bacteremia are currently pending 4the patient may benefit from CT of the pelvis to make sure no evidence of any abscess that may need to be drained Time with Patient: Less than 30
[2021-11-01] MEDS: SODIUM CHLORIDE 0.9% 1,000 ML IV SCH ×4 (05:56→21:10)
[2021-11-01] MEDS: SENNOSIDES-DOCUSATE SODIUM 1 EACH TAB PO SCH ×2 (09:13→21:09)
[2021-11-01] MEDS: PANTOPRAZOLE 40 MG/10 ML VIAL IVP SCH (09:17)
[2021-11-01 09:23] LABS: Basophils # (A) 0.02 X 10*3/uL (0.00-0.10); Basophils % (A) 0.3 %; Eosinophils # (A) 0.21 X 10*3/uL (0.04-0.35); Eosinophils % (A) 2.6 %; HGB 10.3 g/dL (13.0-17.0); Immature Grans, Automated 0.8 %; Lymphocytes # (A) 1.14 X 10*3/uL (0.90-5.00); Lymphocytes % (A) 14.3 %; MCH 29.1 pg (27.0-32.0); MCHC 33.2 g/dL (32.0-37.0); MCV 87.6 fL (80.0-97.0); Mean Platelet Volume 10.2 fL (9.5-12.2); Monocytes # (A) 0.78 X 10*3/uL (0.20-1.00); Monocytes % (A) 9.8 %; NRBC Per 100 WBC 0 /100 WBCS (0.0-0.0); Neutrophils # (A) 5.76 X 10*3/uL (1.80-7.70); Neutrophils % (A) 72.2 %; Platelet Count 213 X 10*3/uL (140-440); RBC 3.54 X 10*6/uL (4.40-5.60); RDW 13.4 % (11.5-14.5); WBC 7.97 X 10*3/uL (4.50-10.00)
[2021-11-01 09:30] LABS: African American GFR (CKD) 95.8 (60.0-200.0); Anion Gap 10.3 mmol/L (10.00-18.00); BUN/Creat Ratio 11.33 Ratio (12.00-20.00); Blood Urea Nitrogen 10.2 mg/dL (9.0-27.0); Calcium 8.1 mg/dL (8.7-10.3); Carbon Dioxide 24.7 mmol/L (20.0-27.5); Non-African American GFR(CKD) 82.7 (60.0-200.0); Potassium 3.6 mmol/L (3.5-5.5)
[2021-11-01] MEDS: AMPICILLIN-SULBACTAM 3 GM in SODIUM CHLORIDE 0.9% 100 ML IVPB SCH ×3 (13:23→23:37)
--- NOTE | 2021-11-01 16:30 | P.PN ---
Subjective Progress Note Date: 11/01/21 10/28/2021 This is a 75-year-old gentleman with recent robotic-assisted laparoscopic prostatectomy with bilateral pelvic lymphadenectomy on 10/20/[address] Monsalve. Per urology note on prior admission, prostate ultrasound with biopsies in January 2021 revealed a small focus of [place] 6 adenocarcinoma. Additional past medical history includes gastroesophageal reflux disease, hypertension, hyperlipidemia, former smoker, 2 packs a day and quit 50 years ago and multiple other medical issues. Patient had fevers during his prior postoperative stay which had subsided prior to his discharge. Over the last couple of days developed chills, fevers as high as 103 and ongoing abdominal distention-states mildly improved, with indwelling Noguera catheter since OR. On admission tachycardic, T-max 103.1, WBC 3.6, neutrophils.reportable, sodium 136, potassium 4.6, bicarb 21, BUN 20, creatinine 1.39(baseline 1.2). Lactic acid 3.5, magnesium 1.8, phosphorus 2.1, CRP 2.8. UA reported 16 WBCs, 166 RBCs, l arge leukocytes and positive nitrates and large blood, 1+ protein with urine culture pending. Conorovirus/influenza type A and B not detected. Patient recently had traveled prior to surgery out of the country with another couple on a private boat, denies known exposure to anyone sick. Blood cultures obtained, pending. Denies chest pain, palpitations or shortness of breath. Denies lightheadedness or focal deficits. Currently afebrile with tachycardia resolved. Maintaining O2 sats in the high 90s on room air. Chest x-ray reported Minimal subsegmental atelectasis left lung base. EKG unavailable, troponin negative. Complains of bilateral lower quadrant cramping prior to passing of minimal gas. Last bowel movement yesterday morning, small, the day prior, he had loose bowel movements-not diarrhea. 10/31/2021 KUB reported nonspecific abdomen, prominent small bowel loops associated with ileus or enteritis. Patient reports positive bowel movement yesterday, abdomen remains distended but a little softer. Evaluated by infectious disease, continued on Rocephin, while awaiting cultures to finalize . Maintained on IV fluid hydration. T-max 100.5. CRP increased to 14.8. Leukopenic on admission, increased to 1.23 , currently down to 7.5 .CT of abdomen and pelvis ordered. Creatinine 0.9. Denies chest pain, palpitations or shortness of breath. 11/01/2021 T-max 100, WBC within normal limits. Antibiotics adjusted to Unasyn per ID Hemoglobin 10.3, platelets 213. Renal function stable. KUB reporting a fluid collection with gas measuring 10.7 x 5.9 x 6.4 cm appears to be within the fascial plane between the fluid collection and sigmoid colon, tracks around the left external and common iliac veins and arteries. Denies abdominal pain, reports continued intermittent bilateral lower quadrant spasming Discussed with infectious disease, recommending interventional radiology drain abscess. Denies chest pain, palpitations or shortness of breath. Objective - Vital Signs Vital signs: Vital Signs Temp 98.1 F 11/01/21 05:00 Pulse 78 11/01/21 05:00 Resp 16 11/01/21 05:00 BP 162/75 11/01/21 05:00 Pulse Ox 95 11/01/21 05:00 FiO2 Intake & Output 10/31/21 11/01/21 11/01/21 18:59 06:59 18:59 Intake Total 1040 Output Total 500 575 Balance 540 -575 Intake: Intake, IV Titration 1040 Amount Sodium Chloride 0.9% 1, 1040 000 ml @ 130 mls/hr IV . Q7H42M [facility] Rx#:[id number] Output: Urine 500 575 Other: Voiding Method Indwelling Catheter Indwelling Catheter Indwelling Catheter # Bowel Movements 1 - Exam PHYSICAL EXAM: VITAL SIGNS: As above GENERAL: Alert and oriented 3, Sitting up in bed, no acute distress HEENT: Conjunctivae normal. eyes normal. NECK: Supple, No JVD. CARDIOVASCULAR: S1, S2 regular. No murmur RESPIRATION: Breath sounds clear to auscultation bilateral bases diminished ABDOMEN: Distended,softer,status post recent surgery with minimal tenderness . No guarding.Bowel sounds heard. Noguera bag with clear yellow urine LEGS: No edema. no swelling NERVOUS SYSTEM: Cranial N 2-12 grossly normal.No focal deficits. Strength and sensation grossly intact. Skin: Warm and dry, no rash. Microbiology 10/30/21 11:10 Blood Blood Culture - Preliminary No Growth after 48 hours 10/28/21 01:30 Blood Blood Culture Gram Stain - Final 10/28/21 01:30 Blood Blood Culture - Final Escherichia coli 10/28/21 01:30 Blood Blood Culture Gram Stain - Final 10/28/21 01:30 Blood Blood Culture - Final Escherichia coli 10/27/21 22:58 Urine,Voided Urine Culture - Final Escherichia coli 10/28/21 01:30 Blood Blood Culture - Final 10/28/21 01:30 Blood Blood Culture - Final - Labs CBC & Chem 7: 11/01/21 06:19 11/01/21 06:19 Labs: Abnormal Lab Results - Last 24 Hours (Table) 10/31/21 11/01/21 11/01/21 Range/Units 05:56 06:19 06:19 RBC 3.54 L (4.40-5.60) X 10*6/uL Hgb 10.3 L (13.0-17.0) g/dL Hct 31.0 L (39.6-50.0) % Immature Gran # 0.06 H (0.00-0.04) X 10*3/uL ESR 71 H (0-20) mm/Hr BUN/Creatinine Ratio 11.33 L (12.00-20.00) Ratio Calcium 8.1 L (8.7-10.3) mg/dL Microbiology - Last 24 Hours (Table) 10/30/21 11:10 Blood Culture - Preliminary Blood No Growth after 24 hours Assessment and Plan Assessment: Sepsis secondary to acute UTI with E. coli related to postop Noguera catheter. Leukopenia secondary to the above Abdominal distention,possible enteritis related to recent robotic-assisted laparoscopic prostatectomy with bilateral pelvic lymphadenectomy secondary to prostate cancer, on 10/20/2021, possible abscess. Fevers persist, CT ordered. Bacteremia, E. coli, repeat blood cultures pending Lactic acidosis Dehydration Acute renal failure Gastroesophageal reflux disease Hypertension Hyperlipidemia Former nicotine dependence Plan: Continue on current medication regime ,monitoring and symptomatic treatment. Dr. Hodges consulted as recommended per interventional radiology, further recommendations pending.Maintain IV fluids. Antibiotics as per Infectious disease. Repeat blood cultures in progress. Aggressive pulmonary toileting with incentive spirometer reinforced. The impression and plan of care has been dictated as directed. : I performed a history and examination of this patient, discussed the same with the dictator. I agree with the dictator's note ,documented as a scribe. Any additional findings or plans will be noted.
[2021-11-01 16:48] LABS: INR 0.9 (<1.2); Prothrombin Time 9.8 sec (9.0-12.0)
--- NOTE | 2021-11-01 17:04 | P.GSCN ---
History of Present Illness Consult date: 11/01/21 Reason for Consult: E. coli bacteremia with abdominal pain History of present illness: 75-year-old male underwent robotic prostatectomy 12 days ago. Patient came back to the hospital for fevers and chills and was found to have an E. coli urinary tract infection with E. coli bacteremia. Patient was having some left lower quadrant abdominal pain and tenderness. CAT scan was performed yesterday which shows a fluid collection containing small foci of air. This fluid collection is in continuity with the iliac lymphatics extending up towards the sigmoid colon proximally. Patient with history of diverticulosis and diverticulosis is seen on the scan. On the sagittal images there does appear to be a plane between the fluid collection and the colon however on the axial images the fluid collection appears to be intimately close to the colon. Patient feels much better after going on antibiotics. Catheter remains in place. No fevers for the last 24 hours. Leukocytosis has resolved. Patient's last colonoscopy 4-5 years ago. States he is due later this year. He has never had diverticulitis previously. Review of Systems The patient denies any acute changes in vision or hearing, no dysphagia or odyno phagia, no chest pain or shortness of breath, no headache, no runny nose, no rectal bleeding or melena, no unexplained weight loss Past Medical History Past Medical History: GERD/Reflux, Hyperlipidemia, Hypertension, Prostate Disorder Additional Past Medical History / Comment(s): PSA ELEVATED History of Any Multi-Drug Resistant Organisms: None Reported Past Surgical History: Tonsillectomy Additional Past Surgical History / Comment(s): ULNAR NERVE LEFT ARM. COLONOSCOPY, prostate surgery 10/20/2021 Past Anesthesia/Blood Transfusion Reactions: No Reported Reaction Past Psychological History: No Psychological Hx Reported Smoking Status: Former smoker Past Alcohol Use History: Occasional Additional Past Alcohol Use History / Comment(s): QUIT SMOKING 50 YEARS AGO Past Drug Use History: None Reported - Past Family History Daughter(s) Family Medical History: Cancer, Pulmonary Embolus Additional Family Medical History / Comment(s): BREAST Medications and Allergies Home Medications Medication Instructions Recorded Confirmed Type Pravastatin Sodium [Pravachol] 40 mg PO HS 05/03/17 10/27/21 History amLODIPine [Norvasc] 5 mg PO HS 01/20/21 10/27/21 History Acetaminophen Tab [Tylenol Tab] 1,000 mg PO Q6HR PRN 10/27/21 10/27/21 History Ketorolac [Toradol] 10 mg PO DIRECTED PRN 10/27/21 10/27/21 History Allergies Allergy/AdvReac Type Severity Reaction Status Date / Time No Known Allergies Allergy Verified 10/27/21 22:35 Surgical - Exam Vital Signs Temp Pulse Resp BP Pulse Ox 103.1 F H 120 H 20 108/58 96 10/27/21 22:32 10/27/21 22:32 10/27/21 22:32 10/27/21 22:32 10/27/21 22:32 Physical exam: General: Well-developed, well-nourished HEENT: Normocephalic, sclerae nonicteric Abdomen: Mild left lower quadrant tenderness, nondistended Extremities: No edema Neuro: Alert and oriented Results - Labs 11/01/21 06:19 11/01/21 06:19 Abnormal Lab Results - Last 24 Hours (Table) 10/31/21 11/01/21 11/01/21 Range/Units 05:56 06:19 06:19 RBC 3.54 L (4.40-5.60) X 10*6/uL Hgb 10.3 L (13.0-17.0) g/dL Hct 31.0 L (39.6-50.0) % Immature Gran # 0.06 H (0.00-0.04) X 10*3/uL ESR 71 H (0-20) mm/Hr BUN/Creatinine Ratio 11.33 L (12.00-20.00) Ratio Calcium 8.1 L (8.7-10.3) mg/dL Microbiology - Last 24 Hours (Table) 10/30/21 11:10 Blood Culture - Preliminary Blood No Growth after 48 hours Diabetes panel 11/01/21 Range/Units 06:19 Sodium 139 (135-145) mmol/L Potassium 3.6 (3.5-5.5) mmol/L Chloride 104 (96-109) mmol/L Carbon Dioxide 24.7 (20.0-27.5) mmol/L BUN 10.2 (9.0-27.0) mg/dL Creatinine 0.9 (0.6-1.5) mg/dL Glucose 104 (70-110) mg/dL Calcium 8.1 L (8.7-10.3) mg/dL Calcium panel 11/01/21 Range/Units 06:19 Calcium 8.1 L (8.7-10.3) mg/dL Pituitary panel 11/01/21 Range/Units 06:19 Sodium 139 (135-145) mmol/L Potassium 3.6 (3.5-5.5) mmol/L Chloride 104 (96-109) mmol/L Carbon Dioxide 24.7 (20.0-27.5) mmol/L BUN 10.2 (9.0-27.0) mg/dL Creatinine 0.9 (0.6-1.5) mg/dL Glucose 104 (70-110) mg/dL Calcium 8.1 L (8.7-10.3) mg/dL Adrenal panel 11/01/21 Range/Units 06:19 Sodium 139 (135-145) mmol/L Potassium 3.6 (3.5-5.5) mmol/L Chloride 104 (96-109) mmol/L Carbon Dioxide 24.7 (20.0-27.5) mmol/L BUN 10.2 (9.0-27.0) mg/dL Creatinine 0.9 (0.6-1.5) mg/dL Glucose 104 (70-110) mg/dL Calcium 8.1 L (8.7-10.3) mg/dL Assessment and Plan (1) Abdominal pain Narrative/Plan: 75-year-old male with left pelvic fluid collection that could represent diverticular abscess versus seroma from recent robotic prostatectomy. Case discussed with Dr. Loving and Dr. Soriano. We'll proceed with CT-guided drain placement tomorrow. Further recommendations to follow. Current Visit: Yes Status: Acute Code(s): R10.9 - UNSPECIFIED ABDOMINAL PAIN SNOMED Code(s): 19721109
[2021-11-01] MEDS: amLODIPine 5 MG TAB PO SCH (21:09)
[2021-11-01] MEDS: PRAVASTATIN SODIUM 40 MG TAB PO SCH (21:09)
--- NOTE | 2021-11-01 21:43 | P.PN ---
Progress Note - Text no acute overnight event, patient has been afebrile the last 24 hours, leukocytosis has resolved. Currently on IV antibiotics. Underwent a CT abdomen yesterday which showed evidence of a 10.7 cm collection along the left side of the bladder, with foci of air. Of note the collection is close to the colon, general surgery is on board now. I reviewed the CT Discussed with the patient's based on the location of the fluid this could be an infected lymphocele, versus a hematoma, versus a diverticular abscess. Discussed with him there is significant improvement clinically since hospital admission, given the resolution of the fevers. He is having some left lower quadrant tenderness, but fairly mild. -We'll keep Noguera catheter in place -Agree with iron drainage of the fluid collection -We'll continue to follow along
[2021-11-02] MEDS: AMPICILLIN-SULBACTAM 3 GM in SODIUM CHLORIDE 0.9% 100 ML IVPB SCH ×3 (05:55→17:40)
[2021-11-02] MEDS: SODIUM CHLORIDE 0.9% 1,000 ML IV SCH ×2 (05:55→21:12)
[2021-11-02] MEDS: PANTOPRAZOLE 40 MG/10 ML VIAL IVP SCH (07:33)
[2021-11-02] MEDS: SENNOSIDES-DOCUSATE SODIUM 1 EACH TAB PO SCH ×2 (07:35→21:12)
--- NOTE | 2021-11-02 10:57 | P.PN ---
Subjective Progress Note Date: 11/02/21 CHIEF COMPLAINT: Abdominal pain HISTORY OF PRESENT ILLNESS: Surgical service following in regards to possible diverticular abscess versus seroma from recent prostatectomy surgery. Patient is scheduled for CT guided drainage of fluid collection by interventional radiology today. He is still complaining of left lower quadrant abdominal pain and abdominal distention. Denies any nausea or vomiting. He is tolerating clear liquids. Afebrile. No new labs for today. Blood culture with E. coli. Repeat blood culture showing no growth. Urine culture with E. coli PHYSICAL EXAM: VITAL SIGNS: Reviewed. GENERAL: Well-developed in no acute distress. HEENT: No sclera icterus. Extraocular movements grossly intact. Moist buccal mucosa. Head is atraumatic, normocephalic. ABDOMEN: Soft. Mildly distended. Tenderness to palpation left lower quadrant NEUROLOGIC: Alert and oriented. Cranial nerves II through XII grossly intact. ASSESSMENT: 1. Left pelvic fluid collection that could represent diverticular abscess versus seroma from recent robotic prostatectomy PLAN: -Patient scheduled for CT-guided drain placement by IR today -Continue antibiotics -Continue close liquid diet -Continue IV fluids Physician Electronics Lead note has been reviewed by physician. Signing provider agrees with the documented findings, assessment, and plan of care. I have personally seen and examined the patient, reviewed the RISK MANAGEMENT PROFESSIONAL /PAs history, exam and MDM and agree with the assessment and plan as written. Based on total visit time, I have performed more than 50% of the visit. As above: Patient doing about the same today. He is afebrile. Tolerating liquid diet. CT-guided drain placement for today still pending. Continue antibiotics per infectious disease. Will follow. Objective - Vital Signs Vital signs: Vital Signs Temp 98.5 F 11/02/21 04:21 Pulse 73 11/02/21 04:21 Resp 18 11/02/21 04:21 BP 137/65 11/02/21 04:21 Pulse Ox 95 11/02/21 04:21 FiO2 Intake & Output 11/01/21 11/02/21 11/02/21 18:59 06:59 18:59 Intake Total 1050 700 Output Total 500 Balance 1050 200 Intake: Intake, IV Titration 1050 700 Amount Ampicillin-Sulbactam 3 gm 200 100 In Sodium Chloride 0.9% 100 ml @ 200 mls/hr IVPB Q6HR [facility] Rx#:[id number] Sodium Chloride 0.9% 1, 800 600 000 ml @ 130 mls/hr IV . Q7H42M [facility] Rx#:[id number] cefTRIAXone 2 gm In 50 Sodium Chloride 0.9% 50 ml @ 100 mls/hr IVPB Q24HR [facility] Rx#:[id number] Output: Urine 500 Other: Voiding Method Indwelling Catheter Indwelling Catheter Indwelling Catheter - Labs CBC & Chem 7: 11/01/21 06:19 11/01/21 06:19 Labs: Microbiology - Last 24 Hours (Table) 10/30/21 11:10 Blood Culture - Preliminary Blood No Growth after 48 hours
--- NOTE | 2021-11-02 13:15 | P.PN ---
Progress Note - Text Progress Note Date: 11/02/21 Mr. Corbin reports mild left lower quadrant discomfort. He is afebrile with stable vital signs. His leukocytosis has resolved. CT scan has shown a left pelvic fluid collection, for which he will undergo CT-guided drain placement later today.
[2021-11-02 13:23] VITALS: BMI 32.2
[2021-11-02] MEDS ORDERED: HYDROmorphone 0.5 MG/0.5 ML SYRINGE IVP STA (13:51)
--- NOTE | 2021-11-02 15:13 | CT ---
EXAMINATION TYPE: CT guided abscess drainage DATE OF EXAM: 11/02/2021 HISTORY: Postop fluid collection within the abdomen COMPARISON: CT 10/31/2021 PROCEDURE: Maximal barrier technique was utilized. The skin over suitable path to the abnormal fluid collection in the left lower quadrant was localized with CT and the overlying skin prepped and draped. Lidocai ne was used for local anesthesia. A skin jony made with a scalpel. Access was gained using Getix nce with a 21-gauge needle, serous fluid returned in the hub of the needle. A 0.018 inch wire was ad vanced and the access site was upsized, the wire was upsized and subsequently an 8.5-[place]ian drain was deployed within the collection and fixed in place. Catheter attached to gravity drainage. No imme diate complication. Serous fluid sent for laboratory analysis and draining into the bag. The patient remained in stable condition. IMPRESSION: STATUS POST CT GUIDED POSTOP FLUID COLLECTION DRAINAGE, MICROBIOLOGY ANALYSIS IS PENDING. THIS PROCE DURE WAS PERFORMED BY THE UNDERSIGNED.
[2021-11-02 16:07] LABS: Appearance,Urine Clear (Clear); Bilirubin,Urine Negative (Negative); Blood,Urine Large (Negative); Color,Urine Yellow; Glucose,Urine (UA) Negative (Negative); Ketones,Urine 1+ (Negative); Leukocyte Esterase,Urine Large (Negative); Mucus,Urine Rare /hpf; Nitrite,Urine Negative (Negative); PH, Urine 6.5 (5.0-8.0); Protein,Urine 1+ (Negative); RBC,Urine 93 /hpf (0-5); Specific Gravity,Urine 1.019 (1.001-1.035); Urobilinogen,Urine <2.0 mg/dL (<2.0); WBC,Urine 92 /hpf (0-5)
--- NOTE | 2021-11-02 17:18 | P.PN ---
Subjective Progress Note Date: 11/02/21 10/28/2021 This is a 75-year-old gentleman with recent robotic-assisted laparoscopic prostatectomy with bilateral pelvic lymphadenectomy on 10/20/[address] Monsalve. 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 Additional past medical history includes gastroesophageal reflux disease, hypertension, hyperlipidemia, former smoker, 2 packs a day and quit 50 years ago and multiple other medical issues. Patient had fevers during his prior postoperative stay which had subsided prior to his discharge. Over the last couple of days developed chills, fevers as high as 103 and ongoing abdominal distention-states mildly improved, with indwelling Noguera catheter since OR. On admission tachycardic, T-max 103.1, WBC 3.6, neutrophils.reportable, sodium 136, potassium 4.6, bicarb 21, BUN 20, creatinine 1.39(baseline 1.2). Lactic acid 3.5, magnesium 1.8, phosphorus 2.1, CRP 2.8. UA reported 16 WBCs, 166 RBCs, l arge leukocytes and positive nitrates and large blood, 1+ protein with urine culture pending. Conorovirus/influenza type A and B not detected. Patient recently had traveled prior to surgery out of the country with another couple on a private boat, denies known exposure to anyone sick. Blood cultures obtained, pending. Denies chest pain, palpitations or shortness of breath. Denies lightheadedness or focal deficits. Currently afebrile with tachycardia resolved. Maintaining O2 sats in the high 90s on room air. Chest x-ray reported Minimal subsegmental atelectasis left lung base. EKG unavailable, troponin negative. Complains of bilateral lower quadrant cramping prior to passing of minimal gas. Last bowel movement yesterday morning, small, the day prior, he had loose bowel movements-not diarrhea. 10/31/2021 KUB reported nonspecific abdomen, prominent small bowel loops associated with ileus or enteritis. Patient reports positive bowel movement yesterday, abdomen remains distended but a little softer. Evaluated by infectious disease, continued on Rocephin, while awaiting cultures to finalize . Maintained on IV fluid hydration. T-max 100.5. CRP increased to 14.8. Leukopenic on admission, increased to 1.23 , currently down to 7.5 .CT of abdomen and pelvis ordered. Creatinine 0.9. Denies chest pain, palpitations or shortness of breath. 11/01/2021 T-max 100, WBC within normal limits. Antibiotics adjusted to Unasyn per ID Hemoglobin 10.3, platelets 213. Renal function stable. KUB reporting a fluid collection with gas measuring 10.7 x 5.9 x 6.4 cm appears to be within the fascial plane between the fluid collection and sigmoid colon, tracks around the left external and common iliac veins and arteries. Denies abdominal pain, reports continued intermittent bilateral lower quadrant spasming Discussed with infectious disease, recommending interventional radiology drain abscess. Denies chest pain, palpitations or shortness of breath. 11/02/2021 NPO, CT-guided drain placement per IR scheduled for today. Maintain IV fluid hydration and IV antibiotics. Bilateral lower quadrant tenderness, greatest on left lower quadrant. Afebrile, normal WBC. Denies chest pain, palpitations or shortness of breath. Objective - Vital Signs Vital signs: Vital Signs Temp 98.0 F 11/02/21 14:31 Pulse 82 11/02/21 14:46 Resp 16 11/02/21 14:15 BP 171/80 11/02/21 14:46 Pulse Ox 94 L 11/02/21 14:15 FiO2 Intake & Output 11/01/21 11/02/21 11/02/21 18:59 06:59 18:59 Intake Total 1050 700 Output Total 500 Balance 1050 200 Weight 102 kg Intake: Intake, IV Titration 1050 700 Amount Ampicillin-Sulbactam 3 gm 200 100 In Sodium Chloride 0.9% 100 ml @ 200 mls/hr IVPB Q6HR [facility] Rx#:[id number] Sodium Chloride 0.9% 1, 800 600 000 ml @ 130 mls/hr IV . Q7H42M [facility] Rx#:[id number] cefTRIAXone 2 gm In 50 Sodium Chloride 0.9% 50 ml @ 100 mls/hr IVPB Q24HR [facility] Rx#:[id number] Output: Urine 500 Other: Voiding Method Indwelling Catheter Indwelling Catheter Indwelling Catheter - Exam PHYSICAL EXAM: VITAL SIGNS: As above GENERAL: Alert and oriented 3, Sitting up in bed, no acute distress HEENT: Conjunctivae normal. eyes normal. NECK: Supple, No JVD. CARDIOVASCULAR: S1, S2 regular. No murmur RESPIRATION: Breath sounds clear to auscultation bilateral bases diminished ABDOMEN: Distended,softer,status post recent surgery with left lower quadrant tenderness . No guarding.Bowel sounds heard. Noguera bag with clear yellow urine LEGS: No edema. no swelling NERVOUS SYSTEM: Cranial N 2-12 grossly normal.No focal deficits. Strength and sensation grossly intact. Skin: Warm and dry, no rash. Microbiology 10/30/21 11:10 Blood Blood Culture - Preliminary No Growth after 72 hours 10/28/21 01:30 Blood Blood Culture Gram Stain - Final 10/28/21 01:30 Blood Blood Culture - Final Escherichia coli 10/28/21 01:30 Blood Blood Culture Gram Stain - Final 10/28/21 01:30 Blood Blood Culture - Final Escherichia coli 10/27/21 22:58 Urine,Voided Urine Culture - Final Escherichia coli 10/28/21 01:30 Blood Blood Culture - Final 10/28/21 01:30 Blood Blood Culture - Final - Labs CBC & Chem 7: 11/01/21 06:19 11/01/21 06:19 Labs: Abnormal Lab Results - Last 24 Hours (Table) 11/02/21 Range/Units 15:40 Urine Protein 1+ H (Negative) Urine Ketones 1+ H (Negative) Urine Blood Large H (Negative) Ur Leukocyte Esterase Large H (Negative) Urine RBC 93 H (0-5) /hpf Urine WBC 92 H (0-5) /hpf Urine Mucus Rare H (None) /hpf Microbiology - Last 24 Hours (Table) 10/30/21 11:10 Blood Culture - Preliminary Blood No Growth after 72 hours Assessment and Plan Assessment: Sepsis secondary to acute UTI with E. coli related to postop Noguera catheter. Leukopenia secondary to the above, resolved Abdominal distention,possible enteritis related to recent robotic-assisted laparoscopic prostatectomy with bilateral pelvic lymphadenectomy secondary to prostate cancer, on 10/20/2021, left pelvic fluid collection with gas measuring 10.7 x 5.9 x 6.4 cm ,possible diverticular abscess. Bacteremia, E. coli, repeat blood cultures pending Lactic acidosis Dehydration Acute renal failure Gastroesophageal reflux disease Diverticulosis Hypertension Hyperlipidemia Former nicotine dependence Plan: Continue on current medication regime ,monitoring and symptomatic treatment. Drain placement pending as discussed between all consults. Maintain IV fluids and antibiotics. Aggressive pulmonary toileting with incentive spirometer reinforced. The impression and plan of care has been dictated as directed. : I performed a history and examination of this patient, discussed the same with the dictator. I agree with the dictator's note ,documented as a scribe. Any additional findings or plans will be noted.
[2021-11-02] MEDS: PRAVASTATIN SODIUM 40 MG TAB PO SCH (21:09)
[2021-11-02] MEDS: amLODIPine 5 MG TAB PO SCH (21:09)
[2021-11-03] MEDS: AMPICILLIN-SULBACTAM 3 GM in SODIUM CHLORIDE 0.9% 100 ML IVPB SCH ×5 (00:22→23:24)
[2021-11-03] MEDS: SODIUM CHLORIDE 0.9% 1,000 ML IV SCH ×4 (00:25→19:16)
[2021-11-03 02:17] LABS: Appearance,BF Cloudy
--- NOTE | 2021-11-03 08:07 | P.PN ---
Subjective Progress Note Date: 11/01/21 Principal diagnosis: E coli UTI and bacteremia Patient is a 75-year-old male with recent history of prostatectomy subsequently presented to hospital with fever rigors and chills and did have evidence of E. coli UTI and bacteremia. On today's evaluation that is 11/01/2021, the patient is afebrile today, the patient denies having any chest pain or shortness of breath or cough, the patient denies nausea no vomiting, did have mild abdominal pain but no diarrhea Objective - Vital Signs Vital signs: Vital Signs Temp 98.1 F 11/01/21 05:00 Pulse 78 11/01/21 05:00 Resp 16 11/01/21 05:00 BP 162/75 11/01/21 05:00 Pulse Ox 95 11/01/21 05:00 FiO2 Intake & Output 10/31/21 11/01/21 11/01/21 18:59 06:59 18:59 Intake Total 1040 Output Total 500 575 Balance 540 -575 Intake: Intake, IV Titration 1040 Amount Sodium Chloride 0.9% 1, 1040 000 ml @ 130 mls/hr IV . Q7H42M [facility] Rx#:[id number] Output: Urine 500 575 Other: Voiding Method Indwelling Catheter Indwelling Catheter Indwelling Catheter # Bowel Movements 1 - Exam GENERAL DESCRIPTION: An elderly male lying in bed in no distress RESPIRATORY SYSTEM: Unlabored breathing , decreased breath sounds at bases HEART: S1 S2 regular rate and rhythm , ABDOMEN: Soft , no tenderness EXTREMITIES: No edema feet - Labs CBC & Chem 7: 11/01/21 06:19 11/01/21 06:19 Labs: Abnormal Lab Results - Last 24 Hours (Table) 11/01/21 11/01/21 Range/Units 06:19 06:19 RBC 3.54 L (4.40-5.60) X 10*6/uL Hgb 10.3 L (13.0-17.0) g/dL Hct 31.0 L (39.6-50.0) % Immature Gran # 0.06 H (0.00-0.04) X 10*3/uL BUN/Creatinine Ratio 11.33 L (12.00-20.00) Ratio Calcium 8.1 L (8.7-10.3) mg/dL Microbiology - Last 24 Hours (Table) 10/30/21 11:10 Blood Culture - Preliminary Blood No Growth after 24 hours Assessment and Plan (1) Sepsis Current Visit: Yes Status: Acute Code(s): A41.9 - SEPSIS, UNSPECIFIED ORGANISM SNOMED Code(s): 17693010 Plan: 1patient presented to hospital with sepsis in this patient did have a fever leukopenia and elevated lactic acid, and now with gram-negative bacteremia source likely urinary in this patient who recently did have robotic assisted laparoscopic prostatectomy for prostate cancer. 2blood cultures repeat repeat has been negative so for she 3the patient's CT was reviewed with radiologist concerning for possible abscess next to sigmoid colon concerning for possible diverticular abscess and no communication to the prostate bed, discussed with the primary team will obtain a CT-guided drainage of that fluid collection 4discontinue Rocephin and start the patient on Unasyn 3 g every 6 hours Time with Patient: Less than 30
--- NOTE | 2021-11-03 08:09 | P.PN ---
Subjective Progress Note Date: 11/02/21 Principal diagnosis: E coli UTI and bacteremia Patient is a 75-year-old male with recent history of prostatectomy subsequently presented to hospital with fever rigors and chills and did have evidence of E. coli UTI and bacteremia. Patient is status post CT-guided drain age of the abdominal fluid collection on 11/02/2021 On today's evaluation that is 11/02/2021, the patient denies any fever or chills, the patient denies chest pain or shortness of breath or cough, the patient denies nausea no vomiting, did have mild abdominal pain but no worsening and no diarrhea Objective - Vital Signs Vital signs: Vital Signs Temp 98.5 F 11/02/21 04:21 Pulse 73 11/02/21 04:21 Resp 18 11/02/21 04:21 BP 137/65 11/02/21 04:21 Pulse Ox 95 11/02/21 04:21 FiO2 Intake & Output 11/01/21 11/02/21 11/02/21 18:59 06:59 18:59 Intake Total 1050 700 Output Total 500 Balance 1050 200 Intake: Intake, IV Titration 1050 700 Amount Ampicillin-Sulbactam 3 gm 200 100 In Sodium Chloride 0.9% 100 ml @ 200 mls/hr IVPB Q6HR [facility] Rx#:[id number] Sodium Chloride 0.9% 1, 800 600 000 ml @ 130 mls/hr IV . Q7H42M [facility] Rx#:[id number] cefTRIAXone 2 gm In 50 Sodium Chloride 0.9% 50 ml @ 100 mls/hr IVPB Q24HR [facility] Rx#:[id number] Output: Urine 500 Other: Voiding Method Indwelling Catheter Indwelling Catheter Indwelling Catheter - Exam GENERAL DESCRIPTION: An elderly male lying in bed in no distress RESPIRATORY SYSTEM: Unlabored breathing , decreased breath sounds at bases HEART: S1 S2 regular rate and rhythm , ABDOMEN: Soft , no tenderness EXTREMITIES: No edema feet - Labs CBC & Chem 7: 11/01/21 06:19 11/01/21 06:19 Labs: Microbiology - Last 24 Hours (Table) 10/30/21 11:10 Blood Culture - Preliminary Blood No Growth after 48 hours Assessment and Plan (1) Sepsis Current Visit: Yes Status: Acute Code(s): A41.9 - SEPSIS, UNSPECIFIED ORGANISM SNOMED Code(s): 97643949 Plan: 1patient presented to hospital with sepsis in this patient did have a fever leukopenia and elevated lactic acid, and now with gram-negative bacteremia source likely urinary in this patient who recently did have robotic assisted laparoscopic prostatectomy for prostate cancer. 2blood cultures repeat repeat has been negative so for she 3the patient's CT was reviewed with radiologist concerning for possible abscess next to sigmoid colon concerning for possible diverticular abscess and no communication to the prostate bed, patient is status post CT-guided drainage of that fluid collection which looks like urine, RN has been told to obtain a sample and send for UA 4patient to continue with Unasyn 3 g every 6 hours while waiting for repeat blood cultures to finalize Time with Patient: Less than 30
[2021-11-03] MEDS: PANTOPRAZOLE 40 MG/10 ML VIAL IVP SCH (08:40)
[2021-11-03] MEDS: SENNOSIDES-DOCUSATE SODIUM 1 EACH TAB PO SCH ×2 (08:41→20:57)
[2021-11-03 09:29] LABS: HCT 36.3 % (39.6-50.0); HGB 11.6 g/dL (13.0-17.0); MCH 28.3 pg (27.0-32.0); MCV 88.5 fL (80.0-97.0); NRBC Per 100 WBC 0 /100 WBCS (0.0-0.0); Platelet Count 434 X 10*3/uL (140-440); RDW 13.4 % (11.5-14.5); WBC 10.66 X 10*3/uL (4.50-10.00)
[2021-11-03 09:39] LABS: African American GFR (CKD) 75.2 (60.0-200.0); Anion Gap 13.8 mmol/L (10.00-18.00); BUN/Creat Ratio 10.27 Ratio (12.00-20.00); Blood Urea Nitrogen 11.3 mg/dL (9.0-27.0); Calcium 8.3 mg/dL (8.7-10.3); Carbon Dioxide 24.2 mmol/L (20.0-27.5); Non-African American GFR(CKD) 64.9 (60.0-200.0); Potassium 3.7 mmol/L (3.5-5.5)
[2021-11-03 10:09] LABS: Basophils # (A) 0.04 X 10*3/uL (0.00-0.10); Basophils % (A) 0.4 %; Eosinophils # (A) 0.18 X 10*3/uL (0.04-0.35); Eosinophils % (A) 1.7 %; Lymphocytes # (A) 1.95 X 10*3/uL (0.90-5.00); Lymphocytes % (A) 18.3 %; Monocytes # (A) 0.62 X 10*3/uL (0.20-1.00); Monocytes % (A) 5.8 %; Neutrophils # (A) 7.76 X 10*3/uL (1.80-7.70); Neutrophils % (A) 72.8 %
--- NOTE | 2021-11-03 11:08 | P.PN ---
Subjective Progress Note Date: 11/03/21 CHIEF COMPLAINT: Abdominal pain HISTORY OF PRESENT ILLNESS: Surgical service following in regards to possible diverticular abscess versus seroma from recent prostatectomy surgery. Patient is status post CT-guided drainage of left pelvic fluid collection. He has had 250 mL of serous colored fluid. Patient reports improvement in his abdominal pain and abdominal pressure since the drainage. He rates his pain about a 2 out of 10. Afebrile. WBC is 10.66 hemoglobin 11.6 creatinine is 1.1. Fluid cult ure is pending and repeat urine culture pending. Repeat blood culture negative. PHYSICAL EXAM: VITAL SIGNS: Reviewed. GENERAL: Well-developed in no acute distress. HEENT: No sclera icterus. Extraocular movements grossly intact. Moist buccal mucosa. Head is atraumatic, normocephalic. ABDOMEN: Soft. Nondistended. Minimal tenderness lower mid abdomen NEUROLOGIC: Alert and oriented. Cranial nerves II through XII grossly intact. ASSESSMENT: 1. Left pelvic fluid collection that could represent diverticular abscess versus seroma from recent robotic prostatectomy 2. Bacteremia 3. UTI PLAN: -Continue to monitor drainage output -Continue antibiotics -Continue supportive care -Further recommendations forthcoming per surgeon Physician Inspector Wire Rope note has been reviewed by physician. Signing provider agrees with the documented findings, assessment, and plan of care. I have personally seen and examined the patient, reviewed the LANDSCAPING MANAGER /PAs history, exam and MDM and agree with the assessment and plan as written. Based on total visit time, I have performed more than 50% of the visit. As above: Patient underwent drainage yesterday. Drain is now serous in appearance. Volume has been relatively low. Gram stain and cultures negative thus far. Suspect seroma. Most likely etiology. We'll reevaluate tomorrow. Objective - Vital Signs Vital signs: Vital Signs Temp 98.4 F 11/03/21 04:27 Pulse 71 11/03/21 04:27 Resp 16 11/03/21 04:27 BP 132/73 11/03/21 04:27 Pulse Ox 96 11/03/21 04:27 FiO2 Intake & Output 11/02/21 11/03/21 11/03/21 18:59 06:59 18:59 Intake Total 100 350 236 Output Total 1450 Balance 100 -1100 236 Weight 102 kg Intake: Intake, IV Titration 100 Amount Ampicillin-Sulbactam 3 gm 100 In Sodium Chloride 0.9% 100 ml @ 200 mls/hr IVPB Q6HR [facility] Rx#:[id number] Oral 350 236 Output: Drainage 250 Left Lower Abdomen 250 Urine 1200 Other: Voiding Method Indwelling Catheter Indwelling Catheter Indwelling Catheter # Voids 1 - Labs CBC & Chem 7: 11/03/21 06:36 11/03/21 06:36 Labs: Abnormal Lab Results - Last 24 Hours (Table) 11/02/21 11/03/21 11/03/21 Range/Units 15:40 06:36 06:36 WBC 10.66 H (4.50-10.00) X 10*3/uL RBC 4.10 L (4.40-5.60) X 10*6/uL Hgb 11.6 L (13.0-17.0) g/dL Hct 36.3 L (39.6-50.0) % Immature Gran # 0.11 H (0.00-0.04) X 10*3/uL Neutrophils # 7.76 H (1.80-7.70) X 10*3/uL BUN/Creatinine Ratio 10.27 L (12.00-20.00) Ratio Calcium 8.3 L (8.7-10.3) mg/dL Urine Protein 1+ H (Negative) Urine Ketones 1+ H (Negative) Urine Blood Large H (Negative) Ur Leukocyte Esterase Large H (Negative) Urine RBC 93 H (0-5) /hpf Urine WBC 92 H (0-5) /hpf Urine Mucus Rare H (None) /hpf Microbiology - Last 24 Hours (Table) 11/02/21 14:08 Gram Stain - Preliminary Aspirate Body Fluid Culture - Preliminary 11/02/21 14:08 Anaerobic Culture - Preliminary Abdomen 11/02/21 15:40 Urine Culture - Preliminary Urine,Catheterized 10/30/21 11:10 Blood Culture - Preliminary Blood No Growth after 72 hours
--- NOTE | 2021-11-03 16:24 | P.PN ---
Subjective Progress Note Date: 11/03/21 10/28/2021 This is a 75-year-old gentleman with recent robotic-assisted laparoscopic prostatectomy with bilateral pelvic lymphadenectomy on 10/20/[address] Monsalve. 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 Additional past medical history includes gastroesophageal reflux disease, hypertension, hyperlipidemia, former smoker, 2 packs a day and quit 50 years ago and multiple other medical issues. Patient had fevers during his prior postoperative stay which had subsided prior to his discharge. Over the last couple of days developed chills, fevers as high as 103 and ongoing abdominal distention-states mildly improved, with indwelling Noguera catheter since OR. On admission tachycardic, T-max 103.1, WBC 3.6, neutrophils.reportable, sodium 136, potassium 4.6, bicarb 21, BUN 20, creatinine 1.39(baseline 1.2). Lactic acid 3.5, magnesium 1.8, phosphorus 2.1, CRP 2.8. UA reported 16 WBCs, 166 RBCs, l arge leukocytes and positive nitrates and large blood, 1+ protein with urine culture pending. Conorovirus/influenza type A and B not detected. Patient recently had traveled prior to surgery out of the country with another couple on a private boat, denies known exposure to anyone sick. Blood cultures obtained, pending. Denies chest pain, palpitations or shortness of breath. Denies lightheadedness or focal deficits. Currently afebrile with tachycardia resolved. Maintaining O2 sats in the high 90s on room air. Chest x-ray reported Minimal subsegmental atelectasis left lung base. EKG unavailable, troponin negative. Complains of bilateral lower quadrant cramping prior to passing of minimal gas. Last bowel movement yesterday morning, small, the day prior, he had loose bowel movements-not diarrhea. 10/31/2021 KUB reported nonspecific abdomen, prominent small bowel loops associated with ileus or enteritis. Patient reports positive bowel movement yesterday, abdomen remains distended but a little softer. Evaluated by infectious disease, continued on Rocephin, while awaiting cultures to finalize . Maintained on IV fluid hydration. T-max 100.5. CRP increased to 14.8. Leukopenic on admission, increased to 1.23 , currently down to 7.5 .CT of abdomen and pelvis ordered. Creatinine 0.9. Denies chest pain, palpitations or shortness of breath. 11/01/2021 T-max 100, WBC within normal limits. Antibiotics adjusted to Unasyn per ID Hemoglobin 10.3, platelets 213. Renal function stable. KUB reporting a fluid collection with gas measuring 10.7 x 5.9 x 6.4 cm appears to be within the fascial plane between the fluid collection and sigmoid colon, tracks around the left external and common iliac veins and arteries. Denies abdominal pain, reports continued intermittent bilateral lower quadrant spasming Discussed with infectious disease, recommending interventional radiology drain abscess. Denies chest pain, palpitations or shortness of breath. 11/02/2021 NPO, CT-guided drain placement per IR scheduled for today. Maintain IV fluid hydration and IV antibiotics. Bilateral lower quadrant tenderness, greatest on left lower quadrant. Afebrile, normal WBC. Denies chest pain, palpitations or shortness of breath. 11/03/2021 CT-guided drain placed yesterday, tolerated procedure well, with 250 MLS fluid, resembling urine, drained since placement . Analysis/Micro pending. Drained fluid specific gravity pending. UA reporting large leukocytes negative nitrates 1+ ketones 92 WBCs .repeat urine culture pending. Afebrile, WBC increased ,10.66, maintained on Unasyn. Renal function stable, mildly worsened, BUN 11.3, creatinine 1.1. Left lower quadrant abdominal pain lessened. Denies chest pain, palpitations or shortness of breath. Objective - Vital Signs Vital signs: Vital Signs Temp 98.4 F 11/03/21 04:27 Pulse 71 11/03/21 04:27 Resp 16 11/03/21 04:27 BP 132/73 11/03/21 04:27 Pulse Ox 96 11/03/21 04:27 FiO2 Intake & Output 11/02/21 11/03/21 11/03/21 18:59 06:59 18:59 Intake Total 100 350 236 Output Total 1450 Balance 100 -1100 236 Weight 102 kg Intake: Intake, IV Titration 100 Amount Ampicillin-Sulbactam 3 gm 100 In Sodium Chloride 0.9% 100 ml @ 200 mls/hr IVPB Q6HR [facility] Rx#:[id number] Oral 350 236 Output: Drainage 250 Left Lower Abdomen 250 Urine 1200 Other: Voiding Method Indwelling Catheter Indwelling Catheter Indwelling Catheter # Voids 1 - Exam PHYSICAL EXAM: VITAL SIGNS: As above GENERAL: Alert and oriented 3, Sitting up in chair, no acute distress HEENT: Conjunctivae normal. eyes normal. MMM. NECK: Supple, No JVD. CARDIOVASCULAR: S1, S2 regular. No murmur RESPIRATION: Breath sounds clear to auscultation bilateral bases diminished ABDOMEN: Distended,softer,status post recent surgery with decreased left lower quadrant tenderness . No guarding.Bowel sounds heard. Left lower quadrant catheter with yellow-urine appearing drainage, Noguera bag with clear yellow urine. LEGS: No edema. no swelling NERVOUS SYSTEM: Cranial N 2-12 grossly normal.No focal deficits. Strength and sensation grossly intact. Skin: Warm and dry, no rash. - Labs CBC & Chem 7: 11/03/21 06:36 11/03/21 06:36 Labs: Abnormal Lab Results - Last 24 Hours (Table) 11/02/21 Range/Units 15:40 Urine Protein 1+ H (Negative) Urine Ketones 1+ H (Negative) Urine Blood Large H (Negative) Ur Leukocyte Esterase Large H (Negative) Urine RBC 93 H (0-5) /hpf Urine WBC 92 H (0-5) /hpf Urine Mucus Rare H (None) /hpf Microbiology - Last 24 Hours (Table) 11/02/21 14:08 Gram Stain - Preliminary Aspirate Body Fluid Culture - Preliminary 11/02/21 14:08 Anaerobic Culture - Preliminary Abdomen 11/02/21 15:40 Urine Culture - Preliminary Urine,Catheterized 10/30/21 11:10 Blood Culture - Preliminary Blood No Growth after 72 hours Assessment and Plan Assessment: Sepsis secondary to acute UTI with E. coli related to postop Noguera catheter. Leukocytosis Leukopenia secondary to the above, resolved Abdominal distention,possible enteritis related to recent robotic-assisted laparoscopic prostatectomy with bilateral pelvic lymphadenectomy secondary to prostate cancer, on 10/20/2021, left pelvic fluid collection with gas measuring 10.7 x 5.9 x 6.4 cm ,possible diverticular abscess. Status post placement of left lower quadrant catheter Bacteremia, E. coli, repeat blood cultures pending Lactic acidosis Dehydration Acute renal failure Gastroesophageal reflux disease Diverticulosis Hypertension Hyperlipidemia Former nicotine dependence Plan: Continue on current medication regime ,monitoring and symptomatic treatment. Left lower quadrant catheter present draining yellow drainage, urine appearing ; cultures and specific gravity of drained fluid pending.strict I&O's. Maintain IV fluids and antibiotics. Close monitoring of renal function, CBC with repeat labs ordered for a.m. The impression and plan of care has been dictated as directed. : I performed a history and examination of this patient, discussed the same with the dictator. I agree with the dictator's note ,documented as a scribe. Any additional findings or plans will be noted.
--- NOTE | 2021-11-03 17:04 | P.PN ---
Progress Note - Text Progress Note Date: 11/03/21 Mr. Corbin feels better following drain placement. The drainage is clear yellow in color, and totalled 250 mL last shift. Culture of the fluid is pending, as is the creatinine level of the fluid. His left lower quadrant discomfort is improved. He is afebrile with stable vital signs. His WBC count is normal. On examination, the abdomen is soft and nontender. The incisions are clean and dry. In my opinion, he will be stable for discharge in the next 1-2 days.
[2021-11-03] MEDS: PRAVASTATIN SODIUM 40 MG TAB PO SCH (20:58)
[2021-11-03] MEDS: amLODIPine 5 MG TAB PO SCH (20:58)
[2021-11-04] MEDS: SODIUM CHLORIDE 0.9% 1,000 ML IV SCH ×2 (02:54→17:44)
[2021-11-04 05:27] VITALS: TEMP 98.1
[2021-11-04] MEDS: AMPICILLIN-SULBACTAM 3 GM in SODIUM CHLORIDE 0.9% 100 ML IVPB SCH ×2 (05:49→11:56)
[2021-11-04] MEDS ORDERED: ONDANSETRON 4 MG/2 ML VIAL IVP ONE (06:48)
[2021-11-04] MEDS ORDERED: HYDROmorphone 0.5 MG/0.5 ML SYRINGE IVP PRN (06:48)
[2021-11-04] MEDS ORDERED: LACTATED RINGERS 1,000 ML IV SCH (06:48)
[2021-11-04] MEDS: SENNOSIDES-DOCUSATE SODIUM 1 EACH TAB PO SCH (07:38)
[2021-11-04] MEDS: PANTOPRAZOLE 40 MG/10 ML VIAL IVP SCH (07:38)
[2021-11-04 09:05] LABS: HCT 33.8 % (39.6-50.0); HGB 10.9 g/dL (13.0-17.0); MCH 28.8 pg (27.0-32.0); MCHC 32.2 g/dL (32.0-37.0); MCV 89.4 fL (80.0-97.0); Mean Platelet Volume 9.6 fL (9.5-12.2); NRBC Per 100 WBC 0 /100 WBCS (0.0-0.0); Platelet Count 443 X 10*3/uL (140-440); RBC 3.78 X 10*6/uL (4.40-5.60); RDW 13.4 % (11.5-14.5)
[2021-11-04 09:15] LABS: African American GFR (CKD) 75.2 (60.0-200.0); Anion Gap 11.3 mmol/L (10.00-18.00); BUN/Creat Ratio 9.18 Ratio (12.00-20.00); Blood Urea Nitrogen 10.1 mg/dL (9.0-27.0); Calcium 8.2 mg/dL (8.7-10.3); Carbon Dioxide 25.7 mmol/L (20.0-27.5); Non-African American GFR(CKD) 64.9 (60.0-200.0); Potassium 4.1 mmol/L (3.5-5.5)
--- NOTE | 2021-11-04 10:08 | P.PN ---
Subjective Progress Note Date: 11/04/21 CHIEF COMPLAINT: Abdominal pain HISTORY OF PRESENT ILLNESS: Surgical service following in regards to seroma from recent prostatectomy surgery. Patient is status post CT-guided drainage of left pelvic fluid collection. He has had 175 mL of serous colored fluid output through the night and this morning. patient denies abdominal pain. Denies any nausea vomiting. He is tolerating diet. Afebrile. WBC is 11.6H3 10.9 platelets 443 creatinine 1.1 body fluid culture Gram stain preliminary findings shows no organisms seen. Anaerobic culture pending Repeat urine culture is negative. Creatinine level of fluid pending. PHYSICAL EXAM: VITAL SIGNS: Reviewed. GENERAL: Well-developed in no acute distress. HEENT: No sclera icterus. Extraocular movements grossly intact. Moist buccal mucosa. Head is atraumatic, normocephalic. ABDOMEN: Soft. Nondistended. Nontender NEUROLOGIC: Alert and oriented. Cranial nerves II through XII grossly intact. ASSESSMENT: 1. Left pelvic fluid collection that could represent seroma from recent robotic prostatectomy 2. Bacteremia 3. UTI PLAN: -Continue to monitor drainage output -Continue antibiotics -Continue supportive care -Further recommendations forthcoming per surgeon Physician Ornamental Plaster Sticker note has been reviewed by physician. Signing provider agrees with the documented findings, assessment, and plan of care. I have personally seen and examined the patient, reviewed the TOUR MANAGER /PAs history, exam and MDM and agree with the assessment and plan as written. Based on total visit time, I have performed more than 50% of the visit. As above: Patient doing well today. Drain fluid is serous. We'll sign off. Please call if needed. Objective - Vital Signs Vital signs: Vital Signs Temp 98.1 F 11/04/21 05:00 Pulse 73 11/04/21 05:00 Resp 16 11/04/21 05:00 BP 148/70 11/04/21 05:00 Pulse Ox 95 11/04/21 07:51 FiO2 Intake & Output 11/03/21 11/04/21 11/04/21 18:59 06:59 18:59 Intake Total 2401 2040 75 Output Total 975 1725 Balance 1426 315 75 Intake: Intake, IV Titration 1400 1500 75 Amount Ampicillin-Sulbactam 3 gm 100 200 75 In Sodium Chloride 0.9% 100 ml @ 200 mls/hr IVPB Q6HR [facility] Rx#:[id number] Sodium Chloride 0.9% 1, 1300 1300 000 ml @ 130 mls/hr IV . Q7H42M [facility] Rx#:[id number] Oral 1001 540 Output: Drainage 50 125 Left Lower Abdomen 50 125 Urine 925 1600 Other: Voiding Method Indwelling Catheter Indwelling Catheter # Bowel Movements 2 - Labs CBC & Chem 7: 11/04/21 06:16 11/04/21 06:16 Labs: Abnormal Lab Results - Last 24 Hours (Table) 11/03/21 11/04/21 11/04/21 Range/Units 06:36 06:16 06:16 WBC 11.60 H (4.50-10.00) X 10*3/uL RBC 3.78 L (4.40-5.60) X 10*6/uL Hgb 10.9 L (13.0-17.0) g/dL Hct 33.8 L (39.6-50.0) % Plt Count 443 H (140-440) X 10*3/uL Immature Gran # 0.11 H (0.00-0.04) X 10*3/uL Neutrophils # 7.76 H (1.80-7.70) X 10*3/uL BUN/Creatinine Ratio 9.18 L (12.00-20.00) Ratio Calcium 8.2 L (8.7-10.3) mg/dL Microbiology - Last 24 Hours (Table) 11/02/21 15:40 Urine Culture - Final Urine,Catheterized 10/30/21 11:10 Blood Culture - Preliminary Blood No Growth after 96 hours 11/02/21 14:08 Gram Stain - Preliminary Aspirate Body Fluid Culture - Preliminary
[2021-11-04 12:20] LABS: Basophils # (A) 0.05 X 10*3/uL (0.00-0.10); Basophils % (A) 0.4 %; Eosinophils # (A) 0.18 X 10*3/uL (0.04-0.35); Eosinophils % (A) 1.6 %; Immature Grans, Automated 0.8 %; Lymphocytes # (A) 1.84 X 10*3/uL (0.90-5.00); Lymphocytes % (A) 15.9 %; Monocytes # (A) 0.61 X 10*3/uL (0.20-1.00); Monocytes % (A) 5.3 %; Neutrophils # (A) 8.83 X 10*3/uL (1.80-7.70); RBC Morphology NORMAL
[2021-11-04 13:00] VITALS: BP 150/80; PULSE 68; RESP 18
--- NOTE | 2021-11-04 14:02 | P.PN ---
Subjective Progress Note Date: 11/04/21 10/28/2021 This is a 75-year-old gentleman with recent robotic-assisted laparoscopic prostatectomy with bilateral pelvic lymphadenectomy on 10/20/[address] Monsalve. 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 Additional past medical history includes gastroesophageal reflux disease, hypertension, hyperlipidemia, former smoker, 2 packs a day and quit 50 years ago and multiple other medical issues. Patient had fevers during his prior postoperative stay which had subsided prior to his discharge. Over the last couple of days developed chills, fevers as high as 103 and ongoing abdominal distention-states mildly improved, with indwelling Noguera catheter since OR. On admission tachycardic, T-max 103.1, WBC 3.6, neutrophils.reportable, sodium 136, potassium 4.6, bicarb 21, BUN 20, creatinine 1.39(baseline 1.2). Lactic acid 3.5, magnesium 1.8, phosphorus 2.1, CRP 2.8. UA reported 16 WBCs, 166 RBCs, l arge leukocytes and positive nitrates and large blood, 1+ protein with urine culture pending. Conorovirus/influenza type A and B not detected. Patient recently had traveled prior to surgery out of the country with another couple on a private boat, denies known exposure to anyone sick. Blood cultures obtained, pending. Denies chest pain, palpitations or shortness of breath. Denies lightheadedness or focal deficits. Currently afebrile with tachycardia resolved. Maintaining O2 sats in the high 90s on room air. Chest x-ray reported Minimal subsegmental atelectasis left lung base. EKG unavailable, troponin negative. Complains of bilateral lower quadrant cramping prior to passing of minimal gas. Last bowel movement yesterday morning, small, the day prior, he had loose bowel movements-not diarrhea. 10/31/2021 KUB reported nonspecific abdomen, prominent small bowel loops associated with ileus or enteritis. Patient reports positive bowel movement yesterday, abdomen remains distended but a little softer. Evaluated by infectious disease, continued on Rocephin, while awaiting cultures to finalize . Maintained on IV fluid hydration. T-max 100.5. CRP increased to 14.8. Leukopenic on admission, increased to 1.23 , currently down to 7.5 .CT of abdomen and pelvis ordered. Creatinine 0.9. Denies chest pain, palpitations or shortness of breath. 11/01/2021 T-max 100, WBC within normal limits. Antibiotics adjusted to Unasyn per ID Hemoglobin 10.3, platelets 213. Renal function stable. KUB reporting a fluid collection with gas measuring 10.7 x 5.9 x 6.4 cm appears to be within the fascial plane between the fluid collection and sigmoid colon, tracks around the left external and common iliac veins and arteries. Denies abdominal pain, reports continued intermittent bilateral lower quadrant spasming Discussed with infectious disease, recommending interventional radiology drain abscess. Denies chest pain, palpitations or shortness of breath. 11/02/2021 NPO, CT-guided drain placement per IR scheduled for today. Maintain IV fluid hydration and IV antibiotics. Bilateral lower quadrant tenderness, greatest on left lower quadrant. Afebrile, normal WBC. Denies chest pain, palpitations or shortness of breath. 11/03/2021 CT-guided drain placed yesterday, tolerated procedure well, with 250 MLS fluid, resembling urine, drained since placement . Analysis/Micro pending. Drained fluid specific gravity pending. UA reporting large leukocytes negative nitrates 1+ ketones 92 WBCs .repeat urine culture pending. Afebrile, WBC increased ,10.66, maintained on Unasyn. Renal function stable, mildly worsened, BUN 11.3, creatinine 1.1. Left lower quadrant abdominal pain lessened. Denies chest pain, palpitations or shortness of breath. 11/04/2021 Creatinine and cultures of drained pelvis fluid pending. Preliminary Gram stain reporting no organisms seen. Left lower abdomen drained 175 MLS overnight. Yesterday staff reported 200ml later followed by 300ml for a total of 500 MLS,further drained in the morning but is currently not charted on I&O. Urine culture negative. Maintained on IV antibiotics with Unasyn as per ID. Afebrile, WBC increased to 11.6. Renal function stable, BUN 10, creatinine 1.1. Denies nausea, vomiting. Mild Left lower quadrant tenderness. Objective - Vital Signs Vital signs: Vital Signs Temp 98.1 F 11/04/21 05:00 Pulse 73 11/04/21 05:00 Resp 16 11/04/21 05:00 BP 148/70 11/04/21 05:00 Pulse Ox 95 11/04/21 07:51 FiO2 Intake & Output 11/03/21 11/04/21 11/04/21 18:59 06:59 18:59 Intake Total 2401 2040 75 Output Total 975 1725 Balance 1426 315 75 Intake: Intake, IV Titration 1400 1500 75 Amount Ampicillin-Sulbactam 3 gm 100 200 75 In Sodium Chloride 0.9% 100 ml @ 200 mls/hr IVPB Q6HR [facility] Rx#:[id number] Sodium Chloride 0.9% 1, 1300 1300 000 ml @ 130 mls/hr IV . Q7H42M [facility] Rx#:[id number] Oral 1001 540 Output: Drainage 50 125 Left Lower Abdomen 50 125 Urine 925 1600 Other: Voiding Method Indwelling Catheter Indwelling Catheter # Bowel Movements 2 - Exam PHYSICAL EXAM: VITAL SIGNS: As above GENERAL: Alert and oriented 3, Sitting up in chair, no acute distress HEENT: Conjunctivae normal. eyes normal. MMM. NECK: Supple, No JVD. CARDIOVASCULAR: S1, S2 regular. No murmur RESPIRATION: Bilateral air entry equal ,Breath sounds clear to auscultation bilateral bases diminishe. ABDOMEN: Distended,softer,status post recent surgery with decreased left lower quadrant tenderness . No guarding.Positive Bowel sounds. Left lower quadrant catheter with yellow-urine appearing drainage, Noguera bag with clear yellow urine with mucousy threads. LEGS: No edema. no swelling. NERVOUS SYSTEM: Cranial N 2-12 grossly normal.No focal deficits. Strength and sensation grossly intact. Skin: Warm and dry, no rash. - Labs CBC & Chem 7: 11/04/21 06:16 11/04/21 06:16 Labs: Abnormal Lab Results - Last 24 Hours (Table) 11/03/21 11/03/21 Range/Units 06:36 06:36 WBC 10.66 H (4.50-10.00) X 10*3/uL RBC 4.10 L (4.40-5.60) X 10*6/uL Hgb 11.6 L (13.0-17.0) g/dL Hct 36.3 L (39.6-50.0) % Immature Gran # 0.11 H (0.00-0.04) X 10*3/uL Neutrophils # 7.76 H (1.80-7.70) X 10*3/uL BUN/Creatinine Ratio 10.27 L (12.00-20.00) Ratio Calcium 8.3 L (8.7-10.3) mg/dL Microbiology - Last 24 Hours (Table) 11/02/21 15:40 Urine Culture - Final Urine,Catheterized 10/30/21 11:10 Blood Culture - Preliminary Blood No Growth after 96 hours 11/02/21 14:08 Gram Stain - Preliminary Aspirate Body Fluid Culture - Preliminary Assessment and Plan Assessment: Sepsis secondary to acute UTI with E. coli related to postop Noguera catheter, and possible abscess, in a patient with recent robotic-assisted laparoscopic prostatectomy. Leukocytosis Leukopenia secondary to the above, resolved Abdominal distention,possible enteritis related to recent robotic-assisted laparoscopic prostatectomy with bilateral pelvic lymphadenectomy secondary to prostate cancer,10/20/2021. CT reports left pelvic fluid collection with gas measuring 10.7 x 5.9 x 6.4 cm ,possible diverticular abscess. Status post placement of left lower quadrant catheter Bacteremia, E. coli, repeat preliminary blood cultures reporting no growth Lactic acidosis Dehydration Acute renal failure Gastroesophageal reflux disease Diverticulosis Hypertension Hyperlipidemia Former nicotine dependence Plan: Continue on current medication regime ,monitoring and symptomatic treatment. Left lower quadrant catheter drainage cultures and specific gravity pending.Strict I&O's. Maintain IV fluids and antibiotics. Discharge planning in progress pending DC recommendations and clearance per urology, surgery and i nfectious disease. The impression and plan of care has been dictated as directed. : I performed a history and examination of this patient, discussed the same with the dictator. I agree with the dictator's note ,documented as a scribe. Any additional findings or plans will be noted.
--- NOTE | 2021-11-04 15:27 | P.PN ---
Subjective Progress Note Date: 11/03/21 Principal diagnosis: E coli UTI and bacteremia Patient is a 75-year-old male with recent history of prostatectomy subsequently presented to hospital with fever rigors and chills and did have evidence of E. coli UTI and bacteremia. Patient is status post CT-guided drain age of the abdominal fluid collection on 11/02/2021 On today's evaluation that is 11/03/2021, the patient continues to be afebrile, the patient denies chest pain or shortness of breath or cough, the patient denies nausea no vomiting, patient denies any worsening abdominal pain still have a good amount of output from the drainage catheter Objective - Vital Signs Vital signs: Vital Signs Temp 98.0 F 11/03/21 12:01 Pulse 72 11/03/21 12:01 Resp 16 11/03/21 12:01 BP 129/72 11/03/21 12:01 Pulse Ox 100 11/03/21 12:01 FiO2 Intake & Output 11/02/21 11/03/21 11/03/21 18:59 06:59 18:59 Intake Total 100 350 461 Output Total 1450 225 Balance 100 -1100 236 Weight 102 kg Intake: Intake, IV Titration 100 Amount Ampicillin-Sulbactam 3 gm 100 In Sodium Chloride 0.9% 100 ml @ 200 mls/hr IVPB Q6HR [facility] Rx#:[id number] Oral 350 461 Output: Drainage 250 Left Lower Abdomen 250 Urine 1200 225 Other: Voiding Method Indwelling Catheter Indwelling Catheter Indwelling Catheter # Voids 1 # Bowel Movements 2 - Exam GENERAL DESCRIPTION: An elderly male lying in bed in no distress RESPIRATORY SYSTEM: Unlabored breathing , decreased breath sounds at bases HEART: S1 S2 regular rate and rhythm , ABDOMEN: Soft , no tenderness EXTREMITIES: No edema feet - Labs CBC & Chem 7: 11/04/21 06:16 11/04/21 06:16 Labs: Abnormal Lab Results - Last 24 Hours (Table) 11/02/21 11/03/21 11/03/21 Range/Units 15:40 06:36 06:36 WBC 10.66 H (4.50-10.00) X 10*3/uL RBC 4.10 L (4.40-5.60) X 10*6/uL Hgb 11.6 L (13.0-17.0) g/dL Hct 36.3 L (39.6-50.0) % Immature Gran # 0.11 H (0.00-0.04) X 10*3/uL Neutrophils # 7.76 H (1.80-7.70) X 10*3/uL BUN/Creatinine Ratio 10.27 L (12.00-20.00) Ratio Calcium 8.3 L (8.7-10.3) mg/dL Urine Protein 1+ H (Negative) Urine Ketones 1+ H (Negative) Urine Blood Large H (Negative) Ur Leukocyte Esterase Large H (Negative) Urine RBC 93 H (0-5) /hpf Urine WBC 92 H (0-5) /hpf Urine Mucus Rare H (None) /hpf Microbiology - Last 24 Hours (Table) 10/30/21 11:10 Blood Culture - Preliminary Blood No Growth after 96 hours 11/02/21 14:08 Gram Stain - Preliminary Aspirate Body Fluid Culture - Preliminary 11/02/21 14:08 Anaerobic Culture - Preliminary Abdomen 11/02/21 15:40 Urine Culture - Preliminary Urine,Catheterized Assessment and Plan (1) Sepsis Current Visit: Yes Status: Acute Code(s): A41.9 - SEPSIS, UNSPECIFIED ORGANISM SNOMED Code(s): 16720589 Plan: 1patient presented to hospital with sepsis in this patient did have a fever leukopenia and elevated lactic acid, and now with gram-negative bacteremia source likely urinary in this patient who recently did have robotic assisted laparoscopic prostatectomy for prostate cancer. 2blood cultures repeat repeat has been negative so for she 3the patient's CT was reviewed with radiologist concerning for possible abscess next to sigmoid colon concerning for possible diverticular abscess and no communication to the prostate bed, however the patient is status post CT-guided drainage of that fluid collection which looks like urine, symptom has been sent for cultures which are currently pending 4patient to continue with Unasyn 3 g every 6 hours while waiting for repeat cultures to finalize Time with Patient: Less than 30
--- NOTE | 2021-11-04 15:29 | P.PN ---
Subjective Progress Note Date: 11/04/21 Principal diagnosis: E coli UTI and bacteremia Patient is a 75-year-old male with recent history of prostatectomy subsequently presented to hospital with fever rigors and chills and did have evidence of E. coli UTI and bacteremia. Patient is status post CT-guided drain age of the abdominal fluid collection on 11/02/2021 On today's evaluation that is 11/04/2021, the patient denies any fever or chills, the patient denies chest pain or shortness of breath or cough, the patient denies nausea no vomiting, patient did have mild abdominal pain, still have good amount of output from the drainage catheter which is identical to the urine Objective - Vital Signs Vital signs: Vital Signs Temp 98.1 F 11/04/21 05:00 Pulse 73 11/04/21 05:00 Resp 16 11/04/21 05:00 BP 148/70 11/04/21 05:00 Pulse Ox 95 11/04/21 07:51 FiO2 Intake & Output 11/03/21 11/04/21 11/04/21 18:59 06:59 18:59 Intake Total 2401 2040 650 Output Total 975 1725 525 Balance 1426 315 125 Weight 102 kg Intake: Intake, IV Titration 1400 1500 650 Amount Ampicillin-Sulbactam 3 gm 100 200 In Sodium Chloride 0.9% 100 ml @ 200 mls/hr IVPB Q6HR [facility] Rx#:[id number] Sodium Chloride 0.9% 1, 1300 1300 650 000 ml @ 130 mls/hr IV . Q7H42M [facility] Rx#:[id number] Oral 1001 540 Output: Drainage 50 125 100 Left Lower Abdomen 50 125 100 Urine 925 1600 425 Other: Voiding Method Indwelling Catheter Indwelling Catheter Indwelling Catheter # Bowel Movements 2 - Exam GENERAL DESCRIPTION: An elderly male lying in bed in no distress RESPIRATORY SYSTEM: Unlabored breathing , decreased breath sounds at bases HEART: S1 S2 regular rate and rhythm , ABDOMEN: Soft , no tenderness EXTREMITIES: No edema feet - Labs CBC & Chem 7: 11/04/21 06:16 11/04/21 06:16 Labs: Abnormal Lab Results - Last 24 Hours (Table) 11/04/21 11/04/21 Range/Units 06:16 06:16 WBC 11.60 H (4.50-10.00) X 10*3/uL RBC 3.78 L (4.40-5.60) X 10*6/uL Hgb 10.9 L (13.0-17.0) g/dL Hct 33.8 L (39.6-50.0) % Plt Count 443 H (140-440) X 10*3/uL Immature Gran # 0.09 H (0.00-0.04) X 10*3/uL Neutrophils # 8.83 H (1.80-7.70) X 10*3/uL BUN/Creatinine Ratio 9.18 L (12.00-20.00) Ratio Calcium 8.2 L (8.7-10.3) mg/dL Microbiology - Last 24 Hours (Table) 11/02/21 15:40 Urine Culture - Final Urine,Catheterized 10/30/21 11:10 Blood Culture - Preliminary Blood No Growth after 96 hours 11/02/21 14:08 Gram Stain - Preliminary Aspirate Body Fluid Culture - Preliminary Assessment and Plan (1) Sepsis Current Visit: Yes Status: Acute Code(s): A41.9 - SEPSIS, UNSPECIFIED ORGANISM SNOMED Code(s): 87880548 Plan: 1patient presented to hospital with sepsis in this patient did have a fever leukopenia and elevated lactic acid, and now with gram-negative bacteremia sour ce likely urinary in this patient who recently did have robotic assisted laparoscopic prostatectomy for prostate cancer. 2blood cultures repeat repeat has been negative so for she 3the patient's CT was reviewed with radiologist concerning for possible abscess next to sigmoid colon concerning for possible diverticular abscess and no communication to the prostate bed, however the patient is status post CT-guided drainage of that fluid collection which looks like urine, likely representing postoperative urinoma and not behaving as a diverticular abscess however the patient continue drainage is concerning, we'll wait for the final recommendation from urology 4patient to continue Unasyn 3 g every 6 hours and monitor clinical course closely discussed with the admitting team Time with Patient: Less than 30
--- NOTE | 2021-11-04 16:42 | P.PN ---
Subjective no acute overnight events, denies any abdominal pain. Objective - Vital Signs Vital signs: Vital Signs Temp 98.1 F 11/04/21 12:59 Pulse 68 11/04/21 12:59 Resp 18 11/04/21 12:59 BP 150/80 11/04/21 12:59 Pulse Ox 94 L 11/04/21 12:59 FiO2 Intake & Output 11/03/21 11/04/21 11/04/21 18:59 06:59 18:59 Intake Total 2401 2040 1240 Output Total 975 1725 525 Balance 1426 315 715 Weight 102 kg Intake: Intake, IV Titration 1400 1500 880 Amount Ampicillin-Sulbactam 3 gm 100 200 100 In Sodium Chloride 0.9% 100 ml @ 200 mls/hr IVPB Q6HR [facility] Rx#:[id number] Sodium Chloride 0.9% 1, 1300 1300 780 000 ml @ 130 mls/hr IV . Q7H42M [facility] Rx#:[id number] Oral 1001 540 360 Output: Drainage 50 125 100 Left Lower Abdomen 50 125 100 Urine 925 1600 425 Other: Voiding Method Indwelling Catheter Indwelling Catheter Indwelling Catheter # Bowel Movements 2 - Constitutional General appearance: Present: no acute distress - Gastrointestinal General gastrointestinal: Present: soft. Absent: distended, tenderness - Labs CBC & Chem 7: 11/04/21 06:16 11/04/21 06:16 Labs: Abnormal Lab Results - Last 24 Hours (Table) 11/04/21 11/04/21 Range/Units 06:16 06:16 WBC 11.60 H (4.50-10.00) X 10*3/uL RBC 3.78 L (4.40-5.60) X 10*6/uL Hgb 10.9 L (13.0-17.0) g/dL Hct 33.8 L (39.6-50.0) % Plt Count 443 H (140-440) X 10*3/uL Immature Gran # 0.09 H (0.00-0.04) X 10*3/uL Neutrophils # 8.83 H (1.80-7.70) X 10*3/uL BUN/Creatinine Ratio 9.18 L (12.00-20.00) Ratio Calcium 8.2 L (8.7-10.3) mg/dL Microbiology - Last 24 Hours (Table) 10/30/21 11:10 Blood Culture - Preliminary Blood No Growth after 120 hours 11/02/21 15:40 Urine Culture - Final Urine,Catheterized Assessment and Plan Assessment: 75-year-old male status post robotic prostatectomy by Dr. Loving on 10/20, admitted with sepsis secondary to UTI. Urine and blood culture growing E. coli. underwent IR drainage for a fluid collection, near the bladder, output is serous.. Fluid creatinine is pending. -Okay for discharge from urologist and point with the Noguera catheter and the drain -Catheter irrigated without any difficulties -Can follow-up on Sunday with Dr. Loving
--- NOTE | 2021-11-04 17:12 | P.DS ---
Providers Date of admission: 10/28/21 01:12 Expected date of discharge: 11/04/21 Attending physician: Aaron Escobedo Consults: 10/28/21 01:12 Consult Physician Routine Consulting Provider: Juancarlos Soto Consult Reason/Comments: known Do you want consulting provider notified?: Yes 10/28/21 15:01 Consult Physician Routine Consulting Provider: Ranjith Samuel Consult Reason/Comments: Bacteremia Do you want consulting provider notified?: Yes Primary care physician: Aaron Escobedo - Discharge Diagnosis(es) (1) Sepsis Current Visit: Yes Status: Acute (2) UTI (urinary tract infection) Current Visit: Yes Status: Acute (3) Fever Current Visit: Yes Status: Acute (4) Seroma after procedure Current Visit: Yes Status: Acute (5) H/O prostatectomy Current Visit: Yes Status: Acute (6) Essential (primary) hypertension Current Visit: Yes Status: Acute (7) Mixed hyperlipidemia Current Visit: Yes Status: Acute (8) H/O prostate cancer Current Visit: Yes Status: Acute Hospital Course: 10/28/2021 This is a 75-year-old gentleman with recent robotic-assisted laparoscopic prostatectomy with bilateral pelvic lymphadenectomy on 10/20/[address] Monsalve. 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 Additional past medical history includes gastroesophageal reflux disease, hypertension, hyperlipidemia, former smoker, 2 packs a day and quit 50 years ago and multiple other medical issues. Patient had fevers during his prior postoperative stay which had subsided prior to his discharge. Over the last couple of days developed chills, fevers as high as 103 and ongoing abdominal distention-states mildly improved, with indwelling Crane catheter since OR. On admission tachycardic, T-max 103.1, WBC 3.6, neutrophils.reportable, sodium 136, potassium 4.6, bicarb 21, BUN 20, creatinine 1.39(baseline 1.2). Lactic acid 3.5, magnesium 1.8, phosphorus 2.1, CRP 2.8. UA reported 16 WBCs, 166 RBCs, large leukocytes and positive nitrates and large blood, 1+ protein with urine culture pending. Conorovirus/influenza type A and B not detected. Patient recently had traveled prior to surgery out of the country with another couple on a private boat, denies known exposure to anyone sick. Blood cultures obtained, pending. Denies chest pain, palpitations or shortness of breath. Denies lightheadedness or focal deficits. Currently afebrile with tachycardia resolved. Maintaining O2 sats in the high 90s on room air. Chest x-ray reported Minimal subsegmental atelectasis left lung base. EKG unavailable, troponin negative. Complains of bilateral lower quadrant cramping prior to passing of minimal gas. Last bowel movement yesterday morning, small, the day prior, he had loose bowel movements-not diarrhea. 10/31/2021 KUB reported nonspecific abdomen, prominent small bowel loops associated with ileus or enteritis. Patient reports positive bowel movement yesterday, abdomen remains distended but a little softer. Evaluated by infectious disease, continued on Rocephin, while awaiting cultures to finalize . Maintained on IV fluid hydration. T-max 100.5. CRP increased to 14.8. Leukopenic on admission, increased to 1.23 , currently down to 7.5 .CT of abdomen and pelvis ordered. Creatinine 0.9. Denies chest pain, palpitations or shortness of breath. 11/01/2021 T-max 100, WBC within normal limits. Antibiotics adjusted to Unasyn per ID Hemoglobin 10.3, platelets 213. Renal function stable. KUB reporting a fluid collection with gas measuring 10.7 x 5.9 x 6.4 cm appears to be within the fascial plane between the fluid collection and sigmoid colon, tracks around the left external and common iliac veins and arteries. Denies abdominal pain, reports continued intermittent bilateral lower quadrant spasming Discussed with infectious disease, recommending interventional radiology drain abscess. Denies chest pain, palpitations or shortness of breath. 11/02/2021 NPO, CT-guided drain placement per IR scheduled for today. Maintain IV fluid hydration and IV antibiotics. Bilateral lower quadrant tenderness, greatest on left lower quadrant. Afebrile, normal WBC. Denies chest pain, palpitations or shortness of breath. 11/03/2021 CT-guided drain placed yesterday, tolerated procedure well, with 250 MLS fluid, resembling urine, drained since placement . Analysis/Micro pending. Drained fluid specific gravity pending. UA reporting large leukocytes negative nitrates 1+ ketones 92 WBCs .repeat urine culture pending. Afebrile, WBC increased ,10.66, maintained on Unasyn. Renal function stable, mildly worsened, BUN 11.3, creatinine 1.1. Left lower quadrant abdominal pain lessened. Denies chest pain, palpitations or shortness of breath. 11/04/2021 Creatinine and cultures of drained pelvis fluid pending. Preliminary Gram stain reporting no organisms seen. Left lower abdomen drained 175 MLS overnight. Yesterday staff reported 200ml later followed by 300ml for a total of 500 MLS,further drained in the morning but is currently not charted on I&O. Urine culture negative. Maintained on IV antibiotics with Unasyn as per ID. Afebrile, WBC increased to 11.6. Renal function stable, BUN 10, creatinine 1.1. Denies nausea, vomiting. Mild Left lower quadrant tenderness. ADDENDUM: He has been cleared by all consultants. He has been afebrile > 48 hours and has minimal if any pain. He will go home with indwelling crane and abdominal drain. ID has sent PO antibiotics. Patient Condition at Discharge: Serious Plan - Discharge Summary Discharge Rx Participant: No New Discharge Prescriptions: New Ciprofloxacin HCl [Cipro] 500 mg PO Q12HR 14 Days #28 tab Continue Pravastatin Sodium [Pravachol] 40 mg PO HS Ketorolac [Toradol] 10 mg PO DIRECTED PRN PRN Reason: Pain Acetaminophen Tab [Tylenol] 1,000 mg PO Q6HR PRN PRN Reason: Pain Or Fever > 100.5 amLODIPine [Norvasc] 5 mg PO HS Discontinued Ciprofloxacin HCl [Cipro] 250 mg PO DIRECTED Discharge Medication List Pravastatin Sodium [Pravachol] 40 mg PO HS 05/03/17 [History] amLODIPine [Norvasc] 5 mg PO HS 01/20/21 [History] Acetaminophen Tab [Tylenol] 1,000 mg PO Q6HR PRN 10/27/21 [History] Ketorolac [Toradol] 10 mg PO DIRECTED PRN 10/27/21 [History] Ciprofloxacin HCl [Cipro] 500 mg PO Q12HR 14 Days #28 tab 11/04/21 [Rx] Follow up Appointment(s)/Referral(s): Sascha Loving MD [STAFF PHYSICIAN] - 11/07/21 (Please call on Sunday morning to make appointment for Sunday11/07/21) Michael Ellison Jr, [Doctor of Osteopathic Medicine] - 3 Days Ranjith Samuel MD [STAFF PHYSICIAN] - 1 Week Patient Instructions/Handouts: Catheter-associated Urinary Tract Infection (DC) Discharge Disposition: HOME SELF-CARE
== END 2021-11-04 17:56 | disposition home or self-care (01) | DRG 698 ==
LOC: EC 22:24 → 5NMEDONC 10-28 01:12
PROVIDERS: ADMIT Family Medicine; ATTEND Family Medicine
DX: T83.511A Infection and inflammatory reaction due to indwelling urethral catheter, initial encounter (principal); A41.51 Sepsis due to Escherichia coli [E. coli]; E87.2 Acidosis; N17.9 Acute kidney failure, unspecified; N39.0 Urinary tract infection, site not specified; E86.0 Dehydration; E78.2 Mixed hyperlipidemia; I10 Essential (primary) hypertension; K21.9 Gastro-esophageal reflux disease without esophagitis; Z20.822 Contact with and (suspected) exposure to COVID-19; K57.90 Diverticulosis of intestine, part unspecified, without perforation or abscess without bleeding; Y73.2 Prosthetic and other implants, materials and accessory gastroenterology and urology devices associated with adverse incidents; Z87.891 Personal history of nicotine dependence; Z90.79 Acquired absence of other genital organ(s); Z85.46 Personal history of malignant neoplasm of prostate; Z79.899 Other long term (current) drug therapy; Z98.890 Other specified postprocedural states; Z80.3 Family history of malignant neoplasm of breast
CPT/HCPCS: 36415; 71045; 74018; 74177; 75989; 80048; 80053; 81001; 82570; 83605; 83735; 84100; 84484; 85025; 85610; 85652; 86140; 87040; 87070; 87075; 87077; 87086; 87186; 87205; 87502; 87635; 89050; 93005; 96361; 96365; 96366; 96375; 99291

== ENCOUNTER → 2021-12-27 | Outpatient (CLI) | payer MEDICARE ==
[2021-12-27 16:00] LABS: T4, Free (Free Thyroxine) 1.01 ng/dL (0.800-1.800)
== END | disposition home or self-care (01) ==
LOC: LABWHC1 09:38
PROVIDERS: ATTEND Family Medicine
DX: E05.90 Thyrotoxicosis, unspecified without thyrotoxic crisis or storm (principal)
CPT/HCPCS: 36415; 84439; 84443; 84481; 86376

== ENCOUNTER → 2022-02-08 | Outpatient (CLI) | payer MEDICARE ==
--- NOTE | 2022-02-08 16:25 | US ---
EXAMINATION TYPE: US venous doppler duplex LE RT DATE OF EXAM: 02/08/2022 4:06 PM COMPARISON: NONE CLINICAL HISTORY: I82.431 EMBOLISM AND THROMBOSIS OF RIGHT POPLITEAL. Edema and pain right lower leg for 1 week SIDE PERFORMED: right TECHNIQUE: The lower extremity deep venous system is examined utilizing real time linear array sonog christopher with graded compression, doppler sonography and color-flow sonography. VESSELS IMAGED: Common Femoral Vein Deep Femoral Vein Greater Saphenous Vein * Femoral Vein Popliteal Vein Small Saphenous Vein * Proximal Calf Veins (* superficial vessels) Right Leg: No evidence of DVT IMPRESSION: 1. Right lower extremity ultrasound negative for deep venous thrombosis.
== END | disposition home or self-care (01) ==
LOC: RADUSWWP 15:46
PROVIDERS: ATTEND Family Medicine
DX: I82.431 Acute embolism and thrombosis of right popliteal vein (principal)

== ENCOUNTER → 2022-03-09 | Outpatient (CLI) | payer MEDICARE ==
[~2022-03-09] MED LIST changes: -HEPARIN SODIUM,PORCINE/PF 5,000 UNIT/0.5 ML SYRINGE SQ PRN; +diphenhydrAMINE 50 MG CAP PO STA
--- NOTE | 2022-03-09 10:16 | CT ---
EXAMINATION TYPE: CT pelvis w con CT DLP: 1149.3 mGycm, Automated exposure control for dose reduction was used. DATE OF EXAM: 03/09/2022 9:54 AM COMPARISON: CT-guided abscess drainage 11/02/2021 CT abdomen pelvis 10/31/2021. CLINICAL INDICATION:Male, 76 years old with history of C61 prostate ca; Prostate CA, lower leg edema TECHNIQUE: Standard CT of the pelvis following the administration of 70 cc of Isovue 300 IV contras t material and oral contrast. Coronal and sagittal reformats were performed. Patient has small contra st reaction with lump on lip, sneezing, and itchy ears that subsequently resolved after administratio n of Benadryl. FINDINGS: Motion degraded examination. LIVER: Visualized portions unremarkable. GALLBLADDER: Visualized portions unremarkable PANCREAS: Unremarkable. KIDNEYS AND URETERS: No evidence of hydronephrosis or renal calculus within the visualized portions. The kidneys enhance symmetrically. BLADDER: Unremarkable REPRODUCTIVE: The prostate is surgically absent. No suspicious soft tissue within the prostatectomy b ed. BOWEL: Distal colonic diverticulosis without evidence for acute diverticulitis. Resolution of previou s is seen pericolonic abscess with residual stranding identified. The appendix is within normal limit s. Enteric contrast reaches the cecum. No evidence of bowel obstruction. PERITONEUM: No evidence of pneumoperitoneum or free fluid. VASCULATURE: Mild atherosclerotic calcifications are present throughout the abdominal aorta and its b ranches. No evidence of aortic aneurysm in the visualized portion. MUSCULOSKELETAL: No acute osseous abnormalities. No new aggressive osseous lesions. Degenerative thomas ges of the visualized spine. Stable sclerotic focus within the left iliac bone. LYMPH NODES: No gross evidence for lymphadenopathy. SOFT TISSUE/ABDOMINAL WALL: Tiny fat filled umbilical hernia. Anterior pelvic wall skin thickening an d subcutaneous stranding. No organized fluid collection. Scrotal edema. IMPRESSION: 1. No acute pelvic process. Resolution of previously demonstrated pericolonic abscess. 2. Postsurgical changes of prostatectomy without CT evidence for abnormal soft tissue in the prostate ctomy bed. 3. Colonic diverticulosis without evidence for acute diverticulitis. 4. Anterior pelvic wall skin thickening and subcutaneous stranding. Clinical correlation for cellulit is is recommended. No organized fluid collection.
== END | disposition home or self-care (01) ==
LOC: RADCTMAIN 07:16
PROVIDERS: ATTEND Urology
DX: C61 Malignant neoplasm of prostate (principal); K57.30 Diverticulosis of large intestine without perforation or abscess without bleeding; R23.4 Changes in skin texture; Z90.79 Acquired absence of other genital organ(s)
CPT/HCPCS: 82565; 84520; 72193; 36415; Q9967

== ENCOUNTER 2022-05-17 13:36 | Emergency (ER) | payer MEDICARE ==
[2022-05-17] MEDS ORDERED: DIPH,PERTUS(ACELL)TETVAC-LF 0.5 ML VIAL IM ONE (14:46)
[2022-05-17] MEDS ORDERED: LIDOCAINE 1% INJ 10MG/ML (30 ML VIAL-PF) SQ ONE (14:48)
--- NOTE | 2022-05-17 15:47 | ED ---
Wound/Laceration HPI - General Chief Complaint: Wound/Laceration Stated Complaint: R. Hand Lac Time Seen by Provider: 05/17/22 14:34 Source: patient, family, RN notes reviewed Mode of arrival: ambulatory Limitations: no limitations - History of Present Illness Initial Comments: This is a 76-year-old male who presents to the emergency department for a lac eration to the right thumb. Patient states that he was trying to clean out the oven and when he was pulling out the oven door, he caught his right thumb. He is not taking any blood thinners. Unsure when his last tetanus vaccine was. Pain is well-controlled at this time. Denies any fevers, chills, sore throat, cough, dyspnea, chest pain, palpitations, abdominal pain, nausea, vomiting, diarrhea, back pain, or headaches. Extremity Location: Right: Hand Place: home Patient Tetanus UTD: No Context: accidental - Related Data Home Medications Medication Instructions Recorded Confirmed Pravastatin Sodium [Pravachol] 40 mg PO HS 05/03/17 10/27/21 amLODIPine [Norvasc] 5 mg PO HS 01/20/21 10/27/21 Acetaminophen Tab [Tylenol] 1,000 mg PO Q6HR PRN 10/27/21 10/27/21 Ketorolac [Toradol] 10 mg PO DIRECTED PRN 10/27/21 10/27/21 Previous Rx's Medication Instructions Recorded Ciprofloxacin HCl [Cipro] 500 mg PO Q12HR 14 Days #28 tab 11/04/21 Allergies Allergy/AdvReac Type Severity Reaction Status Date / Time Iodinated Contrast Media Allergy swelling Verified 03/09/22 10:46 of lip, itchy ears, sneezing Review of Systems ROS Statement: Those systems with pertinent positive or pertinent negative responses have been documented in the HPI. ROS Other: All systems not noted in ROS Statement are negative. Past Medical History Past Medical History: GERD/Reflux, Hyperlipidemia, Hypertension, Prostate Disorder Additional Past Medical History / Comment(s): PSA ELEVATED History of Any Multi-Drug Resistant Organisms: None Reported Past Surgical History: Tonsillectomy Additional Past Surgical History / Comment(s): ULNAR NERVE LEFT ARM. COLONOSCOPY, prostate surgery 10/20/2021 Past Anesthesia/Blood Transfusion Reactions: No Reported Reaction Past Psychological History: No Psychological Hx Reported Smoking Status: Former smoker Past Alcohol Use History: Occasional Past Drug Use History: None Reported - Past Family History Daughter(s) Family Medical History: Cancer, Pulmonary Embolus Additional Family Medical History / Comment(s): BREAST General Exam Limitations: no limitations General appearance: alert, in no apparent distress Head exam: Present: atraumatic, normocephalic, normal inspection Respiratory exam: Present: normal lung sounds bilaterally. Absent: respiratory distress, wheezes, rales, rhonchi, stridor Cardiovascular Exam: Present: regular rate, normal rhythm, normal heart sounds. Absent: systolic murmur, diastolic murmur, rubs, gallop, clicks Extremities exam: Present: other (4 cm triangular-shaped laceration to the dorsal aspect of the right thumb. Visible subcutaneous tissue. Active bleeding. Full range of motion of the right thumb.) Neurological exam: Present: alert, oriented X3, CN II-XII intact Psychiatric exam: Present: normal affect, normal mood Skin exam: Present: warm, dry, normal color. Absent: rash Course Vital Signs 05/17/22 05/17/22 13:49 16:10 Temperature 97 F L 97.2 F L Pulse Rate 63 60 Respiratory 20 16 Rate Blood Pressure 168/83 144/90 O2 Sat by Pulse 98 98 Oximetry Procedures - Laceration Laceration #1 Consent Obtained: verbal consent Indication: laceration Site: other (right thumb) Size (cm): 4 Description: flap Depth: simple, single layer Anesthetic Used: lidocaine 1% Anesthesia Technique: local infiltration Amount (mls): 4 Type of Sutures: nylon Size of Sutures: 5-0 Number of Sutures: 8 Technique: simple, interrupted Medical Decision Making - Medical Decision Making This is a 76-year-old male who presents to the emergency department for a laceration to the right thumb. Was pt. sent in by a medical professional or institution? @ -No Did you speak to anyone other than the patient for history? @ - Did you review nursing and triage notes? @ -Agree, accurate with regards to the patient's symptoms. Were old charts reviewed? @ -No Differential Diagnosis? @ -Not applicable What testing was considered but not performed? (CT, X-rays, U/S, labs)? Why? @ None What meds were considered but not given? Why? @ -I offered ibuprofen or Tylenol for pain, however the patient declined. Did you discuss the management of the patient with other professionals? @ -No Did you reconcile home meds? @ -No Was smoking cessation discussed for >3mins.? @ -No Was critical care preformed (if so, how long)? @ -No Were there social determinants of health that impacted care today? How? (Homelessness, low income, unemployed, alcoholism, drug addiction, transportation, low edu. Level, literacy, decrease access to med. care, skilled nursing, rehab)? @ -No Was there de-escalation of care discussed even if they declined? (Discuss DNR or withdrawal of care, Hospice)? @ -No What co-morbidities impacted this encounter? (DM, HTN, Smoking, COPD, CAD, Cancer, CVA, Hep., AIDS, mental health diagnosis, sleep apnea, morbid obesity)? @ -None Was patient admitted / discharged? @ -Discharged. Patient's tetanus status was updated and sutures were placed. This was not a significantly deep laceration and the patient had full range of motion, and no x-rays were indicated. This was thoroughly cleansed. He was instructed to return in 5-7 days for suture removal and to alternate with ibuprofen and Tylenol for pain relief. Drug Therapy requiring intensive monitoring for toxicity (Heparin, Nitro, Insulin, Cardizem)? @ -None Were any procedures done? @ -None Diagnosis/symptom? @ -Laceration Acute, or Chronic, or Acute on Chronic? @ -Acute Uncomplicated (without systemic symptoms) or Complicated (systemic symptoms)? @ -Uncomplicated Side effects of treatment? @ -Infection from the stitches Exacerbation, Progression, or Severe Exacerbation] @ -Not applicable Poses a threat to life or bodily function? @ -No Return precautions reviewed in depth, the patient is instructed to return to the emergency department with any new, worsening, or concerning symptoms. Patient verbalized understanding. This case was discussed in detail with the attending ED physician. Presentation, findings, and treatment plan discussed in detail as well. Disposition Clinical Impression: Laceration Disposition: HOME SELF-CARE Instructions (If sedation given, give patient instructions): Care For Your Stitches (ED), Laceration (ED) Additional Instructions: Return to the emergency department with any new, worsening, or concerning symptoms and in 5-7 days for removal of your stitches. Alternate with ibuprofen and Tylenol as needed for pain relief. Follow up with your primary care provider in 1-2 days. Is patient prescribed a controlled substance at d/c from ED?: No Referrals: Aaron Escobedo MD [Primary Care Provider] - 1-2 days
[2022-05-17 16:11] VITALS: BP 144/90; PULSE 60; RESP 16; TEMP 97.2
== END 2022-05-17 16:17 | disposition home or self-care (01) ==
LOC: EC 13:36
DX: S61.011A Laceration without foreign body of right thumb without damage to nail, initial encounter (principal); E78.5 Hyperlipidemia, unspecified; I10 Essential (primary) hypertension; Z87.891 Personal history of nicotine dependence; Z79.899 Other long term (current) drug therapy; Z91.041 Radiographic dye allergy status; W23.0XXA Caught, crushed, jammed, or pinched between moving objects, initial encounter
CPT/HCPCS: 90715; 99283; 90471; 12002; J2001

== ENCOUNTER 2022-10-10 07:53 | Day surgery (SDC) | payer MEDICARE ==
[2022-10-06 13:18] VITALS: BMI 31.5
[~2022-10-10 07:53] MED LIST changes: +LACTATED RINGERS 1,000 ML IV SCH; +LIDOCAINE 1% (10MG/ML) FOR IV START INTRADERMA PRN; -diphenhydrAMINE 50 MG CAP PO STA
[2022-10-10] MEDS ORDERED: LACTATED RINGERS 1,000 ML IV ONE (08:12)
[2022-10-10 08:26] VITALS: TEMP 97.8
[2022-10-10] MEDS ORDERED: PROPOFOL 10 MG/ML 20 ML VIAL IV ONE (08:47)
--- NOTE | 2022-10-10 09:08 | P.PCN ---
Date of Procedure: 10/10/22 Procedure(s) Performed: BRIEF HISTORY: Patient is a 76-year-old pleasant white male scheduled for an elective colonoscopy as a part of evaluation of prior history of colon polyps. Last colonoscopy was 6 years ago. PROCEDURE PERFORMED: Colonoscopy. PREOPERATIVE DIAGNOSIS: .History of colon polyps IV sedation per Anesthesia. PROCEDURE: After informed consent was obtained, the patient, was brought into the endoscopy unit. IV sedation was administered by Anesthesia under continuous monitoring. Digital rectal examination was normal. Initially the Olympus CF-160 flexible video colonoscope was then inserted in the rectum, gradually advanced into the cecum without any difficulty. Careful examination was performed as the scope was gradually being withdrawn. Ileocecal valve and the appendiceal orifice were visualized and appeared normal. Prep was excellent. Mucosa of the cecum, ascending colon, transverse colon, descending colon, sigmoid colon, and rectum appeared normal. Retroflexion was performed in the rectum and no lesions were seen. Moderate sigmoid diverticulosis. The patient tolerated the procedure well. IMPRESSION: Normal-appearing colon from rectum to cecum with no evidence of colorectal neoplasia. Moderate sigmoid diverticulosis. RECOMMENDATIONS: Findings of this examination were discussed with the patient [well as his family. He was advised to be a high-fiber diet and take fiber supplements a regular basis.
[2022-10-10 09:18] VITALS: RESP 16
[2022-10-10 09:29] VITALS: BP 134/79; PULSE 64
== END 2022-10-10 09:44 | disposition home or self-care (01) ==
LOC: ORWHC2ENDO 07:53
PROVIDERS: ATTEND Internal Medicine Gastroenterology
DX: Z12.11 Encounter for screening for malignant neoplasm of colon (principal); K57.30 Diverticulosis of large intestine without perforation or abscess without bleeding; Z86.010 Personal history of colon polyps; Z79.899 Other long term (current) drug therapy; I10 Essential (primary) hypertension; E78.5 Hyperlipidemia, unspecified; Z87.891 Personal history of nicotine dependence
CPT/HCPCS: G0105; J2704

== ENCOUNTER → 2023-10-08 | Outpatient (CLI) | payer MEDICARE | END | disposition home or self-care (01) | LOC: LABWHC1 08:25 | PROVIDERS: ATTEND Urology | DX: C61 Malignant neoplasm of prostate (principal) | CPT/HCPCS: 36415; 84153 ==

== ENCOUNTER → 2023-11-06 | Outpatient (CLI) | payer MEDICARE ==
[2023-11-06 11:47] LABS: African American GFR (CKD) 82 (>60 ml/min/1.73 sqM); Blood Urea Nitrogen 20 mg/dL (9-20); Non-African American GFR(CKD) 71 (>60 ml/min/1.73 sqM)
--- NOTE | 2023-11-06 12:43 | CT ---
EXAMINATION TYPE: CT pelvis w con DATE OF EXAM: 11/06/2023 COMPARISON: 03/09/2022 HISTORY: prostate ca CT DLP: 1240.8 mGycm CONTRAST: CT scan of the pelvis is performed with Oral Contrast and with IV Contrast, patient injected with 100 mL of Isovue 300. FINDINGS: BOWEL: Visualized bowel loops are of normal caliber. There is sigmoid diverticulosis without divertic ulitis. Normal-appearing appendix. GENITAL ORGANS: Postoperative changes of prostatectomy. No evidence for recurrent or residual mass. LYMPH NODES: No greater than 1cm abdominal or pelvic lymph nodes are appreciated. AORTA: No significant abnormality. OSSEOUS STRUCTURES: No significant abnormality is seen. OTHER: No significant additional abnormality is seen. IMPRESSION: 1. Diverticulosis without diverticulitis. 2. Changes of prostatectomy.
== END | disposition home or self-care (01) ==
LOC: RADCTMAIN 11:02
PROVIDERS: ATTEND Urology
DX: C61 Malignant neoplasm of prostate (principal)
CPT/HCPCS: 82565; 84520; 72193; 36415; Q9967

== ENCOUNTER → 2024-10-02 | Outpatient (CLI) | payer MEDICARE | END | disposition home or self-care (01) | LOC: LABWHC1 09:19 | PROVIDERS: ATTEND Urology | DX: C61 Malignant neoplasm of prostate (principal) | CPT/HCPCS: 36415; 84153 ==